=== PATIENT | male | born 1960 | race Caucasian/White ===

== ENCOUNTER 2020-03-04 23:50 | Emergency (ER) | payer SELFPAY ==
[2020-03-04 23:53] VITALS: BP 160/100; PULSE 90; BMI 52.6
--- NOTE | 2020-03-04 23:53 | ED.ALCOHOL ---
HPI - Alcohol General Chief Complaint: ETOH/Substance Use Stated Complaint: ETOH Time Seen by Provider: 03/04/20 23:53 Source: EMS Mode of arrival: EMS Limitations: other (Alcohol intoxication) History of Present Illness HPI narrative: Patient is brought by EMS for alcohol intoxication. Police Department called EMS to bring the patient to the emergency room. Police department was called to a private residence, PD walked the patient out and handed the patient over to EMS. On arrival to the emergency room, patient is intoxicated, uncooperative, belligerent, aggressive. Per EMS, when the ambulance arrived on the ambulance [place], patient on strep himself, opened the back of the ambulance and jumped out. Patient did not fall, no head injury. MD complaint: alcohol intoxication Review of Systems Review of Systems: Yes Other (Unwilling to cooperate) [facility] Past Medical History Medical History (Updated 03/04/20 @ 23:59 by Kanchan Wiley MD) Alcohol intoxication Social History Social History Advance Directives: No Advance Directives Information Provided: No Physical Exam Vital Signs: Appearance: Alert. Oriented X3. Intoxicated, combative, belligerent Eyes: Pupils equal, round and reactive to light. ENT: Pharynx normal. Neck: Normal inspection. CVS: Refused physical exam Respiratory: Refused physical exam Abdomen: Refused physical exam Skin: Skin warm and dry. Extremities: No Rash Neuro: No motor deficit. Intoxicated Course Course Course Narrative: Police department was called, patient was discharged under police custody Discharge Plan Discharge Clinical Impression: Alcoholic intoxication Qualifiers: Complication of substance-induced condition: uncomplicated Qualified Code(s): F10.920 - Alcohol use, unspecified with intoxication, uncomplicated Patient Disposition: Xfer Other Instructions: Alcohol Intoxication (ED) Additional Instructions: Please follow-up with your primary care physician tomorrow. If you have any worsening or new symptoms, please return to the emergency room or call 911
--- NOTE | 2020-03-04 23:56 | PC.NURSE ---
PD ESCORT CALLED. PATIENT IS BELIGERENT AND NOT COOPERATING. DENIES ANY OTHER COMPLAINTS.
--- NOTE | 2020-03-04 23:58 | PC.NURSE ---
ESCORTED OFF PROPERTY BY PD.
== END 2020-03-05 00:04 | disposition other institution (70) ==
PROVIDERS: Emergency Provider Emergency Medicine
DX: F10.920 Alcohol use, unspecified with intoxication, uncomplicated (principal)
CPT/HCPCS: 99283

== ENCOUNTER 2021-08-04 19:53 | Emergency (ER) | payer MEDICARE, MEDICAID, SELFPAY ==
[2021-08-04 19:56] VITALS: BMI 25.0
[2021-08-04 20:03] VITALS: BP 98/52; PULSE 86; RESP 18; TEMP 36.4; O2SAT 98
[2021-08-04] MEDS: Lidocaine HCl 1 % MPF 5 ML VIAL SUBCUT (20:26)
--- NOTE | 2021-08-04 22:09 | ED_ITS ---
HPI - Wound/Laceration General Chief Complaint: Wound/Laceration Stated Complaint: L thumb lac Time Seen by Provider: 08/04/21 20:11 Source: patient Mode of arrival: wheelchair Limitations: no limitations History of Present Illness HPI narrative: 61-year-old male who is lorgb-[id number]-[id number] here with reports of laceration to the left hand. Patient tells me he was cutting a lemon to put in his beer when his hand slipped causing him to cut the left index finger. Patient reports his tetanus is up-to-date. He denies any associated weakness, numbness, tingling, fevers, chills. Related Data Allergies Allergy/AdvReac Type Severity Reaction Status Date / Time NSAIDS (Non-Steroidal AdvReac Gastrointestinal Verified 08/04/21 20:28 Anti-Inflamma Upset Review of Systems Review of Systems: Yes all other systems are reviewed and are negative Constitutional: Constitutional: Reports no additional constitutional comp laints, Denies chills, Denies fever(s) and Denies weakness Eyes: Eyes: Reports no additional eye complaints ENT: Reports system reviewed and no additional complaints, except as documented Cardiovascular: Cardiovascular: Reports no additional cardiovascular compl aints and Denies acrocyanosis Respiratory: Respiratory: Reports no additional respiratory complaints Gastrointestinal: Gastrointestinal: Reports no additional gastrointestinal complaints Musculoskeletal: Musculoskeletal: Reports no additional musculoskeletal complaints, Denies arthralgias, Denies joint swelling, Denies numbness and Live es tingling Integumentary/Breasts: Skin/Breast: Reports system reviewed and no additional complaints, except as docu and Denies rash Neurologic: Denies Abnormal speech present, Denies numbness, Denies tingling and Denies weakness [facility] Past Medical History Attestation statement: The following information was validated with the patient. Source: old records reviewed and nursing notes reviewed Medical History Alcohol intoxication Social History Social History Advance Directives: No Advance Directives Information Provided: No Physical Exam Vital Signs: Vital Signs: Last Vital Signs Temp 97.6 F 08/04/21 20:03 Pulse 86 08/04/21 20:03 Resp 18 08/04/21 20:03 BP 98/52 L 08/04/21 20:03 Pulse Ox 98 08/04/21 20:03 O2 Del Method 08/04/21 20:03 BMI result Body Mass Index 25.0 Const: General: cooperative, healthy appearing, comfortable and no acute distress Orientation/consciousness: patient oriented x3 Limitations: no limitations HEENT: Head: Yes normal to inspection Ears: hearing grossly normal bilaterally Eyes: General: appearance normal, both eyes and all related structures Pu pils: Equal, round and reactive pupils present Neck: Neck: Yes normal visual inspection Chest: Chest palpation & inspection: normal inspection of the chest Resp: Effort & Inspection: normal respiratory effort Cardio: Peripheral pulses: Peripheral pulses 2+ throughout Skin: General skin exam: no rashes or lesions noted Neuro: General: patient oriented x3 and Unable to assess gait Cranial nerves: Yes Equal, round and reactive pupils present Cognition (Neuro): normal cognition Speech: No Abnormal speech present Gait exam (Neuro): Unable to assess gait Extrem: Hand/finger images: 1. 4cm laceration over the dorsal aspect. Full range of motion. neurovascular intact distally Course Course Course Narrative: 61-year-old male qbrir-[id number] here with reports of laceration to left hand from a knife. Tetanus is up-to-date. Patient has full range of motion of the digit and hand. See procedure note for wound repair. MDM - Wound/Laceration Differential Diagnosis Differential diagnosis: Likely laceration Medical Records Attestation: I reviewed the patient's medical records. Lab Data Attestation: I reviewed the patient's lab results. Procedures Laceration Laceration 1: Site: hand Side (If applicable): left Size (cm): 4 Description: linear Depth: simple, single layer Local Anesthetic: lidocaine 1% Amount of anesthesia used (mL): 3 Pre-repair: wound explored, irrigated extensively and deep structures intact Skin layer closed with: vicryl Size (cm): 5-0 Number of sutures: 6 Technique: simple, interrupted Discharge Plan Discharge Clinical Impression: Laceration Patient Disposition: Home, Self-Care Instructions: Finger Laceration (ED) Additional Instructions: Sutures out in 7-10 days Interventions: ED Discharge Assessment Last Done: 08/04/21 21:05 Discharge Date/Time: 08/04/21 21:06
== END 2021-08-04 21:06 | disposition home or self-care (01) ==
PROVIDERS: Emergency Provider Emergency Medicine; PCP Internal Medicine
DX: S61.412A Laceration without foreign body of left hand, initial encounter (principal); W26.0XXA Contact with knife, initial encounter; Y93.G3 Activity, cooking and baking; Y92.9 Unspecified place or not applicable; Y99.9 Unspecified external cause status
CPT/HCPCS: 12002; 99283; 99284

== ENCOUNTER 2022-02-20 12:00 | Outpatient (REF) | payer MEDICARE, MEDICAID, SELFPAY ==
--- NOTE | ~2022-02-20 | XR_ITS ---
EXAMINATION: XR CHEST CLINICAL INFORMATION: Cough COMPARISON: None TECHNIQUE: 2 views of the chest were obtained. FINDINGS: No significant abnormality is noted involving the heart, lungs, mediastinum, bony thorax or soft tissues. There is mild deformity left posterior third rib likely old healed fracture XR/XR chest 2V IMPRESSION: Unremarkable chest examination.
== END 2022-02-20 12:01 | disposition home or self-care (01) ==
LOC: HO.XRAY 12:00
PROVIDERS: PCP Internal Medicine; Visit Provider Internal Medicine
DX: R05.9 Cough, unspecified (principal)
CPT/HCPCS: 71046

== ENCOUNTER 2022-05-19 18:49 | Emergency (ER) | payer OTHER, SELFPAY ==
--- NOTE | 2022-05-19 | ECG_ITS ---
Test Reason : SYNCOPE Blood Pressure : / mmHG Vent. Rate : 086 BPM Atrial Rate : 086 BPM P-R Int : 236 ms QRS Dur : 076 ms QT Int : 328 ms P-R-T Axes : 075 092 058 degrees QTc Int : 392 ms Sinus rhythm with 1st degree A-V block Rightward axis cannot exclude Septal infarct , age undetermined Abnormal ECG No previous ECGs available Referred By: Generic ED Physician Electronically Signed By:HUMA PARKER
[2022-05-19 19:01] VITALS: BP 108/70; BP 109/75; PULSE 88; RESP 16; TEMP 36.6; O2SAT 95; O2SAT 97; BMI 24.3
[2022-05-19 19:37] LABS: MANUAL DIFF FLAG NO
[2022-05-19 19:38] LABS: Basophils Absolute Auto 0.1 X10*3/uL (0.0-0.2); Basophils Percent Auto 0.8 % (0-2); Eosinophils Percent Auto 0.3 % (0-4); Hematocrit 43.3 % (42.0-52.0); Hemoglobin 14.6 g/dl (14.0-18.0); Imm Gran Abs Auto 0.03 X10*3/uL (0.00-0.03); Imm Gran Pct Auto 0.3 % (0.0-0.4); Lymphocytes Absolute Auto 1.3 X10*3/uL (1.2-4.9); Lymphocytes Percent Auto 11.8 % (20-40); Mean Corpuscular HGB Conc 33.7 g/dl (31.0-36.0); Mean Corpuscular Hemoglobin 30.2 pg (27.0-33.0); Mean Corpuscular Volume 89.6 fL (80.0-98.0); Mean Platelet Volume 9.9 fL (9.4-12.4); Monocytes Absolute Auto 0.5 X10*3/uL (0.1-1.2); Monocytes Percent Auto 4.9 % (2-11); Neutrophils Absolute Auto 8.7 x10*3/uL (2.0-8.3); Neutrophils Percent Auto 81.9 % (45-73); Platelet Count 233 X10*3/uL (160-400); Red Blood Count 4.83 X10*6/uL (4.60-5.80); Red Cell Distribution Width 12.9 % (11.0-16.0); White Blood Count 10.6 X10*3/uL (4.8-10.8)
[2022-05-19 20:00] LABS: Alanine Aminotransferase 10 U/L (0-40); Albumin Level 3.8 g/dL (3.5-5.0); Alkaline Phosphatase 102 U/L (39-117); Anion Gap 15 (12-20); Aspartate Amino Transferase 13 U/L (5-37); Bilirubin Total 0.4 mg/dL (0.0-1.0); Blood Urea Nitrogen 11 mg/dL (9-16); Carbon Dioxide 24 mmol/L (22-29); Chloride 103 mmol/L (96-108); Creatinine Clr Calc Pharmacy 77.9; Estimated Glomerular Filt Rate > 60; Glucose Random 153 mg/dL (60-115); Potassium 4.9 mmol/L (3.3-5.1); Sodium 137 mmol/L (135-145); Total Protein 6.2 g/dL (6.5-8.0)
[2022-05-19 20:14] LABS: Troponin-I High Sensitivity < 3.5 ng/L (<3.5-35.0)
--- OUTSIDE RECORDS SUMMARY | 2022-05-19 20:30 | XMS_ITS | Continuity of Care Document ---
Author Name Unknown Organization [facility] [place] Address [address] [place] [address]- Care Team Providers Care Directory Clerk Name Role Phone Nazario Van MD Primary Care Physician Encounter [facility] Date(s): 03/10/19 - 05/09/19 [facility] Adult [address] [place] [address]- [facility] Attending Physician: Nazario Van MD Allergies, Adverse Reactions, Alerts Substance Reaction Severity Status ibuprofen Stomach upset Active NSAIDs 1 Active 1stomach ulcers Immunizations Given and Recorded Vaccine Date Status Refusal Reason influenza virus vaccine, inactivated 04/24/19 Give n tetanus/diphtheria/pertussis, acel(Tdap) 02/19/16 Recorded pneumococcal 23-valent vaccine 02/03/16 Recorded Not Given Vaccine Date Status Refusal Reason Influenza Virus Vaccine (oldterm) 05/16/18 Not Giv en Patient Refuses Medications duloxetine 60 mg oral enteric coated capsule See Instructions, TAKE 1 CAPSULE BY MOUTH DAILY, # 30 capsule, 5 Refills, Soft Stop, 02/09/19 9:21:00 EST, [facility] #[id number], 184.5, cm, 08/07/18 11:41:00 EDT, Height Start Date: 02/09/19 Status: Ordered gabapentin 400 mg oral capsule 1, capsule, By Mouth, 3 times a day, # 90 capsule, Refills 2, Tot. Refills 2, Maintenance, 03/25/2011:24:00 EST, Route to Pharmacy Electronically, [facility] #[id number], 184.5, cm, 08/07/18 11:41:00 EDT, Height, Dry Weight Start Date: 03/25/19 Status: Ordered tamsulosin 0.4 mg oral capsule 0.4 mg, 1, capsule, By Mouth, Daily, # 30 capsule, Refills 5, Tot. Refills 5, Maintenance, 04/23/2014:18:00 EST, Route to Pharmacy Electronically, [facility] #[id number], 184.5, cm, 04/24/19 14:57:00 EST, Height Start Date: 04/24/19 Status: Ordered venlafaxine 75 mg oral capsule, extended release 75 mg, 1, capsule, By Mouth, Daily, # 30 capsule, Refills 2, Tot. 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
--- OUTSIDE RECORDS SUMMARY | 2022-05-19 20:30 | XMS_ITS | Continuity of Care Document ---
Author Name Unknown Organization [facility] Address [address] [place] [address]- Care Team Providers Care Electrical/Instrument Technician Name Role Phone Nazario Mayer MD Primary Care Physician Encounter [facility] Date(s): 03/21/21 - 03/28/21 [facility] Adult [address] [place] [address]- Attending Physician: Nazario Mayer MD Allergies, Adverse Reactions, Alerts Substance Reaction Severity Status ibuprofen Stomach upset Active NSAIDs 1 Active 1stomach ulcers Immunizations Given and Recorded Vaccine Date Status Refusal Reason SARS-CoV-2 (COVID-19) Ad26 vaccine 1 08/15/20 Give n Influenza Virus Vaccine (oldterm) 02/19/20 Recorde d influenza virus vaccine, inactivated 04/24/19 Give n tetanus/diphtheria/pertussis, acel(Tdap) 02/19/16 Recorded pneumococcal 23-valent vaccine 02/03/16 Recorded Not Given Vaccine Date Status Refusal Reason Influenza Virus Vaccine (oldterm) 05/16/18 Not Giv en Patient Refuses 1Result Comment: ADMINISTERED TO PT PER DR MAYER Medications cyclobenzaprine 10 mg oral tablet 10 mg, 1, tablet, By Mouth, Daily, prn back pain, # 30 tablet, Refills 0, Tot. Refills 0, Maintenance, 03/21/21 10:18:00 EST, Route to Pharmacy Electronically, [facility] #[id number], Partial fill upon patient request if the prescription is for a... Start Date: 03/21/21 Status: Ordered duloxetine 60 mg oral enteric coated capsule 1 capsule, By Mouth, Daily, # 30 capsule, 5 Refills, 02/22/21 11:47:00 EST, [facility] #[id number], 184.5, cm, 12/15/20 12:14:00 EDT, Height Start Date: 02/22/21 Status: Ordered gabapentin 400 mg oral capsule See Instructions, TAKE 1 CAPSULE BY MOUTH THREE TIMES DAILY, # 270 capsule, Refills 0, InstructionsReplace Required Details, Route to Pharmacy Electronically, [facility] #[id number], 184.5, cm,12/15/20 12:14:00 EDT, Height Start Date: 12/15/20 Status: Ordered gabapentin 400 mg oral capsule 1, capsule, By Mouth, 3 times a day, # 270 capsule, Refills 0, Tot. Refills 0, Maintenance, 09/05/20 9:01:00 EDT, Route to Pharmacy Electronically, [facility] #[id number], 184.5, cm, 08/15/20 13:20:00 EDT, Height Start Date: 09/05/20 Status: Ordered tamsulosin 0.4 mg oral capsule 1, capsule, By Mouth, Daily, # 90 capsule, Refills 0, Route to Pharmacy Electronically, [facility] #[id number], 184.5, cm, 12/15/20 12:14:00 EDT, Height Start Date: 12/15/20 Status: Ordered venlafaxine 37.5 mg oral capsule, extended release See Instructions, Take 2 capsules by mouth daily for one week, then reduce to 1 capsule by mouth daily for one week, then stop., # 21 capsule, Refills 0, Tot. Refills 0, Maintenance, 03/21/21 16:03:00 EST, Instructions Replace Required Details, Route... 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
--- OUTSIDE RECORDS SUMMARY | 2022-05-19 20:30 | XMS_ITS | Continuity of Care Document ---
Author Name Unknown Organization [facility] Address [address] [place] [address]- Care Team Providers Care Retirement Actuary Name Role Phone Rehan FLOREZ, Nazario Jensen Primary Care Physician Encounter [facility] Date(s): 06/29/19 - 07/29/19 [facility] Adult [address] [place] [address]- [facility] Attending Physician: Scott Hercules Admitting Physician: AdmScott ogden Referring Physician: AdmtrScott Allergies, Adverse Reactions, Alerts Substance Reaction Severity [...] 5 Refills, Soft Stop, 02/09/19 9:21:00 EST, [facility] #[id number], 184.5, cm, 08/07/18 11:41:00 EDT, Height Start Date: 02/09/19 Status: Ordered gabapentin 400 mg oral capsule 1, capsule, By Mouth, 3 times a day, # 90 capsule, Refills 0, Tot. Refills 0, Maintenance, :16:00 EDT, Route to Pharmacy Electronically, [facility] #[id number], 184.5, cm, 06/29/19 12:56:00 EDT, Height Start Date: 07/23/19 Status: Ordered tamsulosin 0.4 mg oral capsule 0.4 mg, 1, capsule, By Mouth, Daily, # 30 capsule, Refills 5, Tot. Refills 5, Maintenance, 04/23/2014:18:00 EST, Route to Pharmacy Electronically, [facility] #[id number], 184.5, cm, 04/24/19 14:57:00 EST, Height Start Date: 04/24/19 Status: Ordered venlafaxine 150 mg oral capsule, extended release 150 mg, 1, capsule, By Mouth, Daily, # 90 capsule, Refills 1, Tot. Refills 1, Maintenance, 06/28/2012:34:00 EDT, Route to Pharmacy Electronically, [facility] #[id number], 184.5, cm, 06/29/19 12:56:00 EDT, Height Start Date: 06/29/19 Status: Ordered Problem List Condition Effective Dates Status Health Status Inform ant Anxiety(Confirmed) Active BPH (benign prostatic hyperplasia)(Confirmed) Active Cervical disc disease(Confirmed) Active Depressed(Confirmed) Active [...]
--- OUTSIDE RECORDS SUMMARY | 2022-05-19 20:30 | XMS_ITS | Continuity of Care Document ---
Author Name Unknown Organization [facility] Address [address] [place] [address]- Care Team Providers Care Instructional Support Services Director Name Role Phone Nazario Mayer MD Primary Care Physician [phone] Encounter [facility] Date(s): 08/15/20 - 08/22/20 [facility] Adult [address] [place] [address]- Attending Physician: Nazario Mayer MD Allergies, Adverse [...] ADMINISTERED TO PT PER DR MAYER Medications duloxetine 60 mg oral enteric coated capsule 1 capsule, By Mouth, Daily, # 30 capsule, 5 Refills, Maintenance, 05/30/20 12:58:00 EDT, [facility] #[id number], 184.5, cm, 05/09/20 9:04:00 EDT, Height Start Date: 05/30/20 Status: Ordered gabapentin 400 mg oral capsule See Instructions, TAKE 1 CAPSULE BY MOUTH THREE TIMES DAILY, # 270 capsule, Refills 1, Tot. Refills1, 03/04/20 16:23:00 EST, Instructions Replace Required Details, Route to Pharmacy Electronically, [facility] #[id number], 184.5, cm, 12/30/19 13:... Start Date: 03/04/20 Status: Ordered tamsulosin 0.4 mg oral capsule 1, capsule, By Mouth, Daily, # 30 capsule, Refills 5, Tot. Refills 5, Maintenance, 05/29/20 21:04:00 EDT, Route to Pharmacy Electronically, [facility] #[id number], 184.5, cm, 05/09/20 9:04:00 EDT, Height Start Date: 05/29/20 Status: Ordered tiZANidine 2 mg oral tablet 2 mg, 1, tablet, By Mouth, Every 8 hours, # 42 tablet, Refills 0, Tot. Refills 0, Maintenance, 07/14/20 21:10:00 EDT, Route to Pharmacy Electronically, [facility] #[id number], Partial fill upon patient request if the prescription is for a schedul... Start Date: 07/14/20 Status: Ordered venlafaxine 150 mg oral capsule, extended release 150 mg, 1, capsule, By Mouth, Daily, # 90 capsule, Refills 1, Tot. Refills 1, Maintenance, 05/31/2111:59:00 EDT, Route to Pharmacy Electronically, [facility] #[id number], 184.5, cm, 05/09/20 9:04:00 EDT, Height Start Date: 05/30/20 Status: Ordered Problem List Condition Effective Dates [...] oldest [Reference Range]: 1 Height 184.5 cm (08/15/20 1:20 PM) Weight 86.6 kg (08/15/20 1:20 PM) Oxygen Saturation [94-100 %] 98 % (08/15/20 1:20 PM) Pulse Rate [55-90 bpm] 120 bpm *H* (08/15/20 1:20 PM) Body Mass Index [18.5-24.99] 25.44 *H* (08/15/20 1:20 PM) Blood Pressure [90-138/55-84 mm Hg] 122/ 82mm Hg (08/15/20 1:20 PM) Respiratory Rate [16-30 br/min] 16 br/mi n (08/15/20 1:20 PM) Temperature [96.8-100.4 DegF] 99.0 DegF (08/15/20 1:20 PM) Mode of Delivery (Oxygen) Room air (08/15/20 1:20 PM) Blood pressure sites Arm, left (08/15/20 1:20 PM) Temperature Route Oral (08/15/20 1:20 PM) Weight Obtained Via Standing scale (08/15/20 1:20 PM) Social History Social History Type Response Smoking Status Current every day gaye ofx entered on: 05/06/15 Sex Male
--- OUTSIDE RECORDS SUMMARY | 2022-05-19 20:30 | XMS_ITS | Continuity of Care Document ---
Author Name Unknown Organization [facility] Address [address] [place] [address]- Care Team Providers Care Oyster Floater Name Role Phone Nazario Van MD Primary Care Physician [place] [facility] [place] 05/09/20 - 05/16/20 [facility] Adult [address] [place] [address]- Attending Physician: Nazario Van MD Allergies, Adverse Reactions, Alerts Substance Reaction Severity Status ibuprofen Stomach upset Active NSAIDs 1 Active 1stomach ulcers Immunizations Given and Recorded Vaccine Date Status Refusal Reason Influenza Virus Vaccine (oldterm) 02/19/20 Recorde d influenza virus vaccine, inactivated 04/24/19 Give n tetanus/diphtheria/pertussis, acel(Tdap) 02/19/16 Recorded pneumococcal 23-valent vaccine 02/03/16 Recorded Not Given Vaccine Date Status Refusal Reason Influenza Virus Vaccine (oldterm) 05/16/18 Not Giv en Patient Refuses Medications duloxetine 60 mg oral enteric coated capsule 1 capsule, By Mouth, Daily, # 30 capsule, 0 Refills, Maintenance, 04/27/20 16:45:00 EST, [facility] #[id number], 184.5, cm, 04/15/20 9:27:00 EST, Height Start Date: 04/27/20 Status: Ordered gabapentin 400 mg oral capsule See Instructions, TAKE 1 CAPSULE BY MOUTH THREE TIMES DAILY, # 270 capsule, Refills 1, Tot. Refills1, 03/04/20 16:23:00 EST, Instructions Replace Required Details, Route to Pharmacy Electronically, [facility] #[id number], 184.5, cm, 12/30/19 13:... Start Date: 03/04/20 Status: Ordered hydrOXYzine hydrochloride 50 mg oral tablet 1 tablet = 50 mg, By Mouth, 3 times a day, # 90 tablet, 2 Refills, Maintenance, 04/15/20 10:18:00 EST, [facility] #[id number], Partial fill upon patient request if the prescription is for a schedule II opioid drug., 184.5, cm, 04/15/20 9:27:00 ES... Start Date: 04/15/20 Status: Ordered tamsulosin 0.4 mg oral capsule 1, capsule, By Mouth, Daily, # 30 capsule, Refills 0, Tot. Refills 0, Maintenance, 04/27/20 16:45:00 EST, Route to Pharmacy Electronically, [facility] #[id number], 184.5, cm, 04/15/20 9:27:00 EST, Height Start Date: 04/27/20 Status: Ordered venlafaxine 150 mg oral capsule, extended release 150 mg, 1, capsule, By Mouth, Daily, # 90 capsule, Refills 1, Tot. Refills 1, Maintenance, 209:07:00 EST, Route to Pharmacy Electronically, [facility] #[id number], 184.5, cm, 10/15/19 8:16:00 EDT, Height Start Date: 12/23/19 Status: Ordered Problem List Condition Effective Dates [...] oldest [Reference Range]: 1 Height 184.5 cm (05/09/20 9:04 AM) Weight 87.0 kg (05/09/20 9:04 AM) Body Mass Index [18.5-24.99] 25.56 *H* (05/09/20 9:04 AM) Weight Obtained Via Standing scale (05/09/20 9:04 AM) Social History Social History Type Response Smoking Status Current every day gaye fox entered on: 05/06/15 Sex Male
--- OUTSIDE RECORDS SUMMARY | 2022-05-19 20:30 | XMS_ITS | Continuity of Care Document ---
Author Name Unknown Organization [facility] [place] lt Address [address] [place] [address]- Care Team Providers Care Scout Leaser Name Role Phone Rehan FLOREZ, Nazario Jensen Primary Care Physician Encounter [facility] [place] Date(s): 12/01/21 - 12/31/21 [facility] [place] Adult [address] [place] [address]- Allergies, Adverse Reactions, Alerts Substance Reaction Severity Status ibuprofen Stomach upset Active NSAIDs 1 Active 1stomach ulcers Immunizations Given and Recorded Vaccine Date Status Refusal Reason SARS-CoV-2 (COVID-19) Ad26 vaccine 1 08/15/20 Give n Influenza Virus Vaccine (oldterm) 02/19/20 Recorde d influenza virus vaccine, inactivated 04/24/19 Give n tetanus/diphtheria/pertussis, acel(Tdap) 10/19/16 Recorded tetanus/diphtheria/pertussis, acel(Tdap) 02/19/16 Recorded pneumococcal 23-valent vaccine 02/03/16 Recorded Not Given Vaccine Date Status Refusal Reason Influenza Virus Vaccine (oldterm) 05/16/18 Not Giv en Patient Refuses 1Result Comment: ADMINISTERED TO PT PER DR MAYER Medications cyclobenzaprine 10 mg oral tablet 10 mg, 1, tablet, By Mouth, Daily, prn back pain, # 30 tablet, Refills 1, Tot. Refills 1, Maintenance, 07/24/21 11:11:00 EDT, Route to Pharmacy Electronically, [facility] #[id number], Partial fill upon patient request if the prescription is for a... Start Date: 07/24/21 Status: Ordered duloxetine 60 mg oral enteric coated capsule 1 capsule, By Mouth, Daily, # 30 capsule, 5 Refills, 07/27/21 16:26:00 EDT, [facility] #[id number], 184.5, cm, 03/21/21 8:31:00 EST, Height Start Date: 07/27/21 Status: Ordered gabapentin 400 mg oral capsule 1, capsule, By Mouth, 3 times a day, # 270 capsule, Refills 0, Tot. Refills 0, Maintenance, 09/05/20 9:01:00 EDT, [facility][id number], 184.5, cm, 08/15/20 13:20:00 EDT, Height Start Date: 09/05/20 Status: Ordered gabapentin 400 mg oral capsule See Instructions, TAKE 1 CAPSULE BY MOUTH THREE TIMES DAILY, # 270 capsule, Refills 1, Tot. Refills1, 07/27/21 17:31:00 EDT, Instructions Replace Required Details, Route to Pharmacy Electronically, [facility] #[id number], 184.5, cm, 03/21/21 8:3... Start Date: 07/27/21 Status: Ordered tamsulosin 0.4 mg oral capsule 1, capsule, By Mouth, Daily, # 90 capsule, Refills 0, Tot. Refills 0, Maintenance, 08/15/21 13:42:00 EDT, Route to Pharmacy Electronically, [facility] #[id number], 184.5, cm, 03/21/21 8:31:00 EST, Height Start Date: 08/15/21 Status: Ordered venlafaxine 37.5 mg oral capsule, extended release See Instructions, Take 2 capsules by mouth daily for one week, then reduce to 1 capsule by mouth daily for one week, then stop., # 21 capsule, Refills 0, Tot. Refills 0, Maintenance, 03/21/21 16:03:00 EST, Instructions Replace Required Details, Route... 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 RN Member Role: Primary Care Nurse Name: Gabrielle Giles Position: [facility] RN Member Role: Primary Care Nurse Name: Nazario Mayer MD Position: [facility] Primary Care Physician Member Role: PCP Address: Address: [address] [place] [address]- Care Team Related Persons Name: SHALOM DOLAN Address: home [address] [address] Name: WILLOW JOVEL Address: home [address] [place] [address] Name: RODNEY JAMES Address: home [address] [place] [address]
--- OUTSIDE RECORDS SUMMARY | 2022-05-19 20:30 | XMS_ITS | Continuity of Care Document ---
Author Name Unknown Organization [facility] Address [address] [place] [address]- Care Team Providers Care Ordnance Artificer Name Role Phone Nazario Van MD Primary Care Physician [phone] [facility] [place] Date(s): 03/17/20 - 03/24/20 [facility] Adult [address] [place] [address]- Attending Physician: Nazario Van MD Allergies, Adverse [...] Daily, # 30 capsule, 0 Refills, Maintenance, 02/24/20 11:50:00 EST, [facility] #[id number], 184.5, cm, 12/30/19 13:17:00 EST, Height Start Date: 02/24/20 Status: Ordered gabapentin 400 mg oral capsule 1, capsule, By Mouth, 3 times a day, # 90 capsule, Refills 0, Tot. Refills 0, Maintenance, 10/20/2011:40:00 EDT, Route to Pharmacy Electronically, [facility] #[id number], 184.5, cm, 10/15/19 8:16:00 EDT, Height Start Date: 10/20/19 Status: Ordered gabapentin 400 mg oral capsule See Instructions, TAKE 1 CAPSULE BY MOUTH THREE TIMES DAILY, # 270 capsule, Refills 1, Tot. Refills1, 03/04/20 16:23:00 EST, Instructions Replace Required Details, Route to Pharmacy Electronically, [facility] #[id number], 184.5, cm, 12/30/19 13:... Start Date: 03/04/20 Status: Ordered hydrOXYzine hydrochloride 25 mg oral tablet 1 capsule, By Mouth, 3 times a day, PRN anxiety, for 10 days, # 30 capsule, 0 Refills, Acute 03/27/20 8:32:00 EST, 03/17/20 8:32:00 EST, Capsule, [facility] #[id number], Partial fill upon patient request if the prescription is for a schedule II o... Start Date: 03/17/20 Stop Date: 03/27/20 Status: Ordered tamsulosin 0.4 mg oral capsule 0.4 mg, 1, capsule, By Mouth, Daily, # 30 capsule, Refills 5, Tot. Refills 5, Maintenance, 10/19/2011:42:00 EDT, Route to Pharmacy Electronically, [facility] #[id number], 184.5, cm, 10/15/19 8:16:00 EDT, Height Start Date: 10/19/19 Status: Ordered venlafaxine 150 mg oral capsule, extended release 150 mg, 1, capsule, By Mouth, Daily, # 90 capsule, Refills 1, Tot. Refills 1, Maintenance, :07:00 EST, Route to Pharmacy Electronically, [facility] #[id number], 184.5, cm, 10/15/19 8:16:00 EDT, Height Start [...] oldest [Reference Range]: 1 Height 184.5 cm (03/17/20 7:53 AM) Social History Social History Type Response Smoking Status Current every day gaye fox entered on: 05/06/15 Sex Male
--- OUTSIDE RECORDS SUMMARY | 2022-05-19 20:30 | XMS_ITS | Continuity of Care Document ---
Author Name Unknown Organization [facility] Address [address] [place] [address]- Care Team Providers Care Hand Slitter Name Role Phone Rehan FLOREZ, Nazario Jensen Primary Care Physician Encounter [facility] [place] Date(s): 11/07/21 - 12/07/21 [facility] Adult [address] [place] [address]- Allergies, Adverse Reactions, Alerts Substance Reaction Severity [...] 07/24/21 11:11:00 EDT, Route to Pharmacy Electronically, [facility] #[id number], Partial fill upon patient request if the prescription is for a... Start Date: 07/24/21 Status: Ordered duloxetine 60 mg oral enteric coated capsule 1 capsule, By Mouth, Daily, # 30 capsule, 5 Refills, 07/27/21 16:26:00 EDT, [facility] #[id number], 184.5, cm, 03/21/21 8:31:00 EST, Height Start Date: 07/27/21 Status: Ordered gabapentin 400 mg oral capsule 1, capsule, By Mouth, 3 times a day, # 270 capsule, Refills 0, Tot. Refills 0, Maintenance, 09/05/20 9:01:00 EDT, Route to Pharmacy Electronically, [facility][id number], 184.5, cm, 08/15/20 13:20:00 EDT, Height Start Date: 09/05/20 Status: Ordered gabapentin 400 mg oral capsule See Instructions, TAKE 1 CAPSULE BY MOUTH THREE TIMES DAILY, # 270 capsule, Refills 1, Tot. Refills1, 07/27/21 17:31:00 EDT, Instructions Replace Required Details, Route to Pharmacy Electronically, [facility] #02465, 184.5, cm, 03/21/21 8:3... Start Date: 07/27/21 Status: Ordered tamsulosin 0.4 mg oral capsule 1, capsule, By Mouth, Daily, # 90 capsule, Refills 0, Tot. Refills 0, Maintenance, 08/15/21 13:42:00 EDT, Route to Pharmacy Electronically, [facility] #05133, 184.5, cm, 03/21/21 8:31:00 EST, Height Start [...] gaye fox entered on: 05/06/15 Sex Male Patient Care team information Personnel Name: Rehan FLOREZ, Nazario Jensen Address: Address: [address] [place] [address]
--- OUTSIDE RECORDS SUMMARY | 2022-05-19 20:30 | XMS_ITS | Continuity of Care Document ---
Author Name Unknown Organization [facility] Address [address] [place] [address]- Care Team Providers Care Systems Eng Name Role Phone Rehan FLOREZ, Nazario Jensen Primary Care Physician Encounter [facility] [place] Date(s): 11/28/21 - 12/28/21 [facility] Adult [address] [place] [address]- Allergies, Adverse Reactions, Alerts Substance Reaction Severity [...] 07/24/21 11:11:00 EDT, Route to Pharmacy Electronically, [facility] #[id number], Partial fill upon patient request if the prescription is for a... Start Date: 07/24/21 Status: Ordered duloxetine 60 mg oral enteric coated capsule 1 capsule, By Mouth, Daily, # 30 capsule, 5 Refills, 07/27/21 16:26:00 EDT, [facility][id number], 184.5, cm, 03/21/21 8:31:00 EST, Height Start Date: 07/27/21 Status: Ordered gabapentin 400 mg oral capsule 1, capsule, By Mouth, 3 times a day, # 270 capsule, Refills 0, Tot. Refills 0, Maintenance, 09/05/20 9:01:00 EDT, [facility] to Pharm[facility] Electronically, [facility][id number], 184.5, cm, 08/15/20 13:20:00 EDT, Height Start Date: 09/05/20 Status: Ordered gabapentin 400 mg oral capsule See Instructions, TAKE 1 CAPSULE BY MOUTH THREE TIMES DAILY, # 270 capsule, Refills 1, Tot. Refills1, 07/27/21 17:31:00 EDT, Instructions Replace Required Details, Route to Pharmacy Electronically, [facility] #[id number], 184.5, cm, 03/21/21 8:3... Start Date: 07/27/21 Status: Ordered tamsulosin 0.4 mg oral capsule 1, capsule, By Mouth, Daily, # 90 capsule, Refills 0, Tot. Refills 0, Maintenance, 08/15/21 13:42:00 EDT, Route to Pharmacy Electronically, [facility] #[id number], 184.5, cm, 03/21/21 8:31:00 EST, Height Start [...] Care Team Personnel Name: Miranda Cuevas Position: [facility] RN Member Role: Primary Care Nurse Name: Gabrielle Giles Position: [facility] RN Member Role: Primary Care Nurse Name: Nazario Mayer MD Position: [facility] Primary Care Physician Member Role: PCP Address: Address: [address] [place] [address]- Care Team Related Persons Name: SHALOM DOLAN Address: [address] [address] Name: WILLOW JOVEL Address: home [address] [place] [address] Name: RODNEY JAMES Address: home [address] [place] [address]
--- OUTSIDE RECORDS SUMMARY | 2022-05-19 20:30 | XMS_ITS | Continuity of Care Document ---
Author Name Unknown Organization [facility] Address [address] [place] [address]- Care Team Providers Care Medical Data Entry Clerk Name Role Phone Nazario Van MD Primary Care Physician Encounter [facility] [place] Date(s): 04/26/20 - 05/27/20 [facility] Adult [address] [place] [address]- Attending Physician: Nazario Van MD Allergies, Adverse [...] capsule, 0 Refills, Maintenance, 04/27/20 16:45:00 EST, [facility] #[id number], 184.5, cm, 04/15/20 9:27:00 EST, Height Start Date: 04/27/20 Status: Ordered gabapentin 400 mg oral capsule See Instructions, TAKE 1 CAPSULE BY MOUTH THREE TIMES DAILY, # 270 capsule, Refills 1, Tot. Refills1, 03/04/20 16:23:00 EST, Instructions Replace Required Details, Route to Pharmacy Electronically, [facility] #[id number], 184.5, cm, 12/30/19 13:... Start Date: 03/04/20 Status: Ordered hydrOXYzine hydrochloride 50 mg oral tablet 1 tablet = 50 mg, By Mouth, 3 times a day, # 90 tablet, 2 Refills, Maintenance, 04/15/20 10:18:00 EST, [facility] #[id number], Partial fill upon patient request if the prescription is for a schedule II opioid drug., 184.5, cm, 04/15/20 9:27:00 ES... Start Date: 04/15/20 Status: Ordered tamsulosin 0.4 mg oral capsule 1, capsule, By Mouth, Daily, # 30 capsule, Refills 0, Tot. Refills 0, Maintenance, 04/27/20 16:45:00 EST, Route to Pharmacy Electronically, [facility] #[id number], 184.5, cm, 04/15/20 9:27:00 EST, Height Start Date: 04/27/20 Status: Ordered venlafaxine 150 mg oral capsule, extended release 150 mg, 1, capsule, By Mouth, Daily, # 90 capsule, Refills 1, Tot. Refills 1, Maintenance, 209:07:00 EST, Route to Pharmacy Electronically, [facility] #[id number], 184.5, cm, 10/15/19 8:16:00 EDT, Height Start [...]
--- OUTSIDE RECORDS SUMMARY | 2022-05-19 20:30 | XMS_ITS | Continuity of Care Document ---
Author Name Unknown Organization [facility] Address [address] [place] [address]- Care Team Providers Care Resource Engineer Name Role Phone Rehan FLOREZ, Nazario Jensen Primary Care Physician En[facility] Date(s): 05/04/19 - 05/14/[address] [facility] [address] [address]- [facility] Attending Physician: Scott Hercules Admitting Physician: Scott Hercules Referring Physician: Scott Herculse Allergies, Adverse Reactions, Alerts Substance Reaction Severity [...] 5 Refills, Soft Stop, 02/09/19 9:21:00 EST, [facility] #[id number], 184.5, cm, 08/07/18 11:41:00 EDT, Height Start Date: 02/09/19 Status: Ordered gabapentin 400 mg oral capsule 1, capsule, By Mouth, 3 times a day, # 90 capsule, Refills 2, Tot. Refills 2, Maintenance, 03/25/2011:24:00 EST, Route to Pharmacy Electronically, [facility] #[id number], 184.5, cm, 08/07/18 11:41:00 EDT, Height, Dry Weight Start Date: 03/25/19 Status: Ordered tamsulosin 0.4 mg oral capsule 0.4 mg, 1, capsule, By Mouth, Daily, # 30 capsule, Refills 5, Tot. Refills 5, Maintenance, 04/23/2014:18:00 EST, Route to Pharmacy Electronically, [facility] #[id number], 184.5, cm, 04/24/19 14:57:00 EST, Height Start Date: 04/24/19 Status: Ordered venlafaxine 75 mg oral capsule, extended release 75 mg, 1, capsule, By Mouth, Daily, # 30 capsule, Refills 2, Tot. Refills 2, Maintenance, 03/25/19 12:07:00 EST, Route to Pharmacy Electronically, [facility] #[id number], 184.5, cm, 08/07/18 11:41:00 EDT, Height Start [...]
--- OUTSIDE RECORDS SUMMARY | 2022-05-19 20:30 | XMS_ITS | Continuity of Care Document ---
Author Name Unknown Organization [facility] Address [address] [place] [address]- Care Team Providers Care Warehouse Driver Name Role Phone Rehan FLOREZ, Nazario Jensen Primary Care Physician Encounter [facility] [place] Date(s): 04/12/22 - 05/12/22 [facility] Adult [address] [place] [address]- Attending Physician: Admalin, Bobby8 Admitting Physician: AdmtrScott Referring Physician: Admtr, Ar8 Allergies, Adverse Reactions, Alerts Substance Reaction Severity [...] coated capsule 1 capsule, By Mouth, Daily, for 30 days, # 30 capsule, 5 Refills, Physician Stop 09/22/22 17:51:00 EDT, 03/26/22 17:51:00 EST, [facility] #[id number], 184.5, cm, 02/20/22 9:16:00 EST, Height Start Date: 03/26/22 Stop Date: 09/22/22 Status: Ordered gabapentin 400 mg oral capsule See Instructions, TAKE 1 CAPSULE BY MOUTH THREE TIMES DAILY, # 270 capsule, Refills 1, Tot. Refills1, 07/27/21 17:31:00 EDT, Instructions Replace Required Details, Route to Pharmacy Electronically, [facility] #[id number], 184.5, cm, 03/21/21 8:3... Start Date: 07/27/21 Status: Ordered tamsulosin 0.4 mg oral capsule 0.4 mg, 1, capsule, By Mouth, Daily at bedtime, # 30 capsule, Refills 5, Tot. Refills 5, Maintenance, 04/16/22 15:56:00 EST, Route to Pharmacy Electronically, [facility] #[id number], Partial fill upon patient request if the prescription is for a... Start Date: 04/16/22 Status: Ordered Problem List Condition Confirmation Course [...] Type Response Smoking Status Current every day dominique entered on: 05/06/15 Sex Male EKG study * Event Display: EKG Authored Date: Note * Event Display: X-Ray Chest, Non- BH Authored Date: Patient Care team information Care Team Personnel Name: Miranda Cuevas Position: [facility] RN Member Role: Primary Care Nurse Name: Gabrielle Giles Position: [facility] RN Member Role: Primary Care Nurse Name: Nazario Mayer MD Position: [facility] Primary Care Physician Member Role: PCP Address: Address: [address] [place] [id number] Care Team Related Persons Name: CHASE DOLANDY Address: [address] [address] Name: WILLOW JOVEL Address: home [address] [place] [address] Name: RODNEY JAMES Address: home [address] [place] [address]
--- OUTSIDE RECORDS SUMMARY | 2022-05-19 20:30 | XMS_ITS | Continuity of Care Document ---
Author Name Unknown Organization [facility] Address [address] [place] [address]- Care Team Providers Care Cadmium Plater Name Role Phone Rehan FLOREZ, Nazario Jensen Primary Care Physician [phone] Encounter [facility] [place] Date(s): 03/02/22 - 04/01/22 [facility] Adult [address] [place] [address]- Allergies, Adverse Reactions, Alerts Substance Reaction Severity [...] 07/24/21 11:11:00 EDT, Route to Pharmacy Electronically, [facility] #[id number], Partial fill upon patient request if the prescription is for a... Start Date: 07/24/21 Status: Ordered duloxetine 60 mg oral enteric coated capsule 1 capsule, By Mouth, Daily, for 30 days, # 30 capsule, 5 Refills, Physician Stop 09/22/22 17:51:00 EDT, 03/26/22 17:51:00 EST, [facility] #[id number], 184.5, cm, 02/20/22 9:16:00 EST, Height Start Date: 03/26/22 Stop Date: 09/22/22 Status: Ordered gabapentin 400 mg oral capsule 1, capsule, By Mouth, 3 times a day, # 270 capsule, Refills 0, Tot. Refills 0, Maintenance, 09/05/20 9:01:00 EDT, [facility][id number], 184.5, cm, 08/15/20 13:20:00 EDT, Height Start Date: 09/05/20 Status: Ordered gabapentin 400 mg oral capsule See Instructions, TAKE 1 CAPSULE BY MOUTH THREE TIMES DAILY, # 270 capsule, Refills 1, Tot. Refills1, 07/27/21 17:31:00 EDT, Instructions Replace Required Details, Route to Pharmacy Electronically, [facility] #[id number], 184.5, cm, 03/21/21 8:3... Start Date: 07/27/21 Status: Ordered tamsulosin 0.4 mg oral capsule 1, capsule, By Mouth, Daily, # 90 capsule, Refills 0, Tot. Refills 0, Maintenance, 08/15/21 13:42:00 EDT, Route to Pharmacy Electronically, [facility] #[id number], 184.5, cm, 03/21/21 8:31:00 EST, Height Start [...] Care Team Personnel Name: Miranda Cuevas Position: [facility] RN Member Role: Primary Care Nurse Name: Gabrielle Giles Position: [facility] RN Member Role: Primary Care Nurse Name: Nazario Mayer MD Position: [facility] Primary Care Physician Member Role: PCP Address: Address: [address] [place] [address] [place] Care Team Related Persons Name: SHALOM DOLAN Address: [address] [address] Name: WILLOW JOVEL Address: home [address] [place] [address] Name: RODNEY JAMES Address: home [address] [place] [address]
--- OUTSIDE RECORDS SUMMARY | 2022-05-19 20:30 | XMS_ITS | Continuity of Care Document ---
Author Name Unknown Organization [facility] Address [address] [place] [address]- Care Team Providers Care Head Of Business Development Name Role Phone Rehan FLOREZ, Nazario Jensen Primary Care Physician [phone] Encounter [facility] [place] Date(s): 05/06/20 - 06/05/20 [facility] Adult [address] [place] [address]- Allergies, Adverse Reactions, Alerts Substance Reaction Severity [...] capsule, 5 Refills, Maintenance, 05/30/20 12:58:00 EDT, [facility] #[id number], 184.5, cm, 05/09/20 9:04:00 EDT, Height Start Date: 05/30/20 Status: Ordered gabapentin 400 mg oral capsule See Instructions, TAKE 1 CAPSULE BY MOUTH THREE TIMES DAILY, # 270 capsule, Refills 1, Tot. Refills1, 03/04/20 16:23:00 EST, Instructions Replace Required Details, Route to Pharmacy Electronically, [facility] #[id number], 184.5, cm, 12/30/19 13:... Start Date: 03/04/20 Status: Ordered hydrOXYzine hydrochloride 50 mg oral tablet 1 tablet = 50 mg, By Mouth, 3 times a day, # 90 tablet, 2 Refills, Maintenance, 04/15/20 10:18:00 EST, [facility] #[id number], Partial fill upon patient request if the prescription is for a schedule II opioid drug., 184.5, cm, 04/15/20 9:27:00 ES... Start Date: 04/15/20 Status: Ordered tamsulosin 0.4 mg oral capsule 1, capsule, By Mouth, Daily, # 30 capsule, Refills 5, Tot. Refills 5, Maintenance, 05/29/20 21:04:00 EDT, Route to Pharmacy Electronically, [facility] #[id number], 184.5, cm, 05/09/20 9:04:00 EDT, Height Start Date: 05/29/20 Status: Ordered venlafaxine 150 mg oral capsule, extended release 150 mg, 1, capsule, By Mouth, Daily, # 90 capsule, Refills 1, Tot. Refills 1, Maintenance, 05/31/2111:59:00 EDT, Route to Pharmacy Electronically, [facility] #[id number], 184.5, cm, 05/09/20 9:04:00 EDT, Height Start [...]
--- OUTSIDE RECORDS SUMMARY | 2022-05-19 20:30 | XMS_ITS | Continuity of Care Document ---
Author Name Unknown Organization [facility] Address [address] [place] [address]- Care Team Providers Care Ice Grinder Name Role Phone Rehan FLOREZ, Nazario Jensen Primary Care Physician [phone] [place] [facility] [place]16[place]22 - 05/16/22 [facility] Adult [address] [place] [address]- Allergies, Adverse Reactions, Alerts Substance Reaction Severity [...] Stop 09/22/22 17:51:00 EDT, 03/26/22 17:51:00 EST, [facility] #[id number], 184.5, cm, 02/20/22 9:16:00 EST, Height Start Date: 03/26/22 Stop Date: 09/22/22 Status: Ordered gabapentin 400 mg oral capsule See Instructions, TAKE 1 CAPSULE BY MOUTH THREE TIMES DAILY, # 270 capsule, Refills 1, Tot. Refills1, 07/27/21 17:31:00 EDT, Instructions Replace Required Details, Route to Pharmacy Electronically, [facility] #[id number], 184.5, cm, 03/21/21 8:3... Start Date: 07/27/21 Status: Ordered tamsulosin 0.4 mg oral capsule 0.4 mg, 1, capsule, By Mouth, Daily at bedtime, # 30 capsule, Refills 5, Tot. Refills 5, Maintenance, 04/16/22 15:56:00 EST, Route to Pharmacy Electronically, [facility] #[id number], Partial fill upon patient request if the [...] Care Team Personnel Name: Miranda Cuevas Position: [facility] RN Member Role: Primary Care Nurse Name: Gabrielle Giles Position: [facility] RN Member Role: Primary Care Nurse Name: Nazario Mayer MD Position: [facility] Primary Care Physician Member Role: PCP Address: Address: [address] [place] [address]- Care Team Related Persons Name: SHALOM DOLAN Address: [address] [address] Name: WILLOW JOVEL Address: home [address] [place] [address] Name: RODNEY JAMES Address: home [address] [place] [address]
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
--- OUTSIDE RECORDS SUMMARY | 2022-05-19 20:30 | XMS_ITS | Continuity of Care Document ---
Author Name Unknown Organization [facility] Venkata lt Address [address] [place] [address]- Care Team Providers Care Sheep Sorter Name Role Phone Rehan FLOREZ, Nazario Jensen Primary Care Physician [place] [facility] [place] 03/13/22 - 04/12/22 [facility] Adult [address] [place] [address]- Allergies, Adverse Reactions, Alerts Substance Reaction Severity [...] Stop 09/22/22 17:51:00 EDT, 03/26/22 17:51:00 EST, [facility] #[id number], 184.5, cm, 02/20/22 9:16:00 EST, Height Start Date: 03/26/22 Stop Date: 09/22/22 Status: Ordered gabapentin 400 mg oral capsule See Instructions, TAKE 1 CAPSULE BY MOUTH THREE TIMES DAILY, # 270 capsule, Refills 1, Tot. Refills1, 07/27/21 17:31:00 EDT, Instructions Replace Required Details, Route to Pharmacy Electronically, [facility] #[id number], 184.5, cm, 03/21/21 8:3... Start Date: 07/27/21 Status: Ordered Tessalon Perles 100 mg oral capsule 1 capsule = 100 mg, By Mouth, 3 times a day, for 10 days, # 30 capsule, 0 Refills, Acute 04/20/22 17:32:00 EST, 04/10/22 17:32:00 EST, Capsule, [facility] #[id number], Partial fill upon patient request if the prescription is for a schedule II opi... Start Date: 04/10/22 Stop Date: 04/20/22 Status: Ordered Problem List Condition Confirmation Course [...] Care Team Personnel Name: Miranda Cuevas Position: [facility] RN Member Role: Primary Care Nurse Name: Gabrielle Giles Position: [facility] RN Member Role: Primary Care Nurse Name: Nazario Mayer MD Position: [facility] Primary Care Physician Member Role: PCP Address: Address: [address] [place] [address]- Care Team Related Persons Name: SHALOM DOLAN Address: home [address] [place] [address] Name: WILLOW JOVEL Address: home [address] [place] [address] Name: RODNEY JAMES Address: home [address] [place] [address]
--- OUTSIDE RECORDS SUMMARY | 2022-05-19 20:30 | XMS_ITS | Continuity of Care Document ---
Author Name Unknown Organization [facility] Venkata lt Address [address] [place] [address]- Care Team Providers Care Wax Ball Molder Name Role Phone Rehan FLOREZ, Nazario Jensen Primary Care Physician Encounter [facility] [place] Date(s): 05/18/20 - 06/17/20 [facility] Adult [address] [place] [address]- Allergies, Adverse Reactions, Alerts Substance Reaction Severity [...] capsule, 5 Refills, Maintenance, 05/30/20 12:58:00 EDT, [facility] #[id number], 184.5, cm, 05/09/20 9:04:00 EDT, Height Start Date: 05/30/20 Status: Ordered gabapentin 400 mg oral capsule See Instructions, TAKE 1 CAPSULE BY MOUTH THREE TIMES DAILY, # 270 capsule, Refills 1, Tot. Refills1, 03/04/20 16:23:00 EST, Instructions Replace Required Details, Route to Pharmacy Electronically, [facility] #[id number], 184.5, cm, 12/30/19 13:... Start Date: 03/04/20 Status: Ordered hydrOXYzine hydrochloride 50 mg oral tablet 1 tablet = 50 mg, By Mouth, 3 times a day, # 90 tablet, 2 Refills, Maintenance, 04/15/20 10:18:00 EST, [facility] #[id number], Partial fill upon patient request if the prescription is for a schedule II opioid drug., 184.5, cm, 04/15/20 9:27:00 ES... Start Date: 04/15/20 Status: Ordered tamsulosin 0.4 mg oral capsule 1, capsule, By Mouth, Daily, # 30 capsule, Refills 5, Tot. Refills 5, Maintenance, 05/29/20 21:04:00 EDT, Route to Pharmacy Electronically, [facility] #[id number], 184.5, cm, 05/09/20 9:04:00 EDT, Height Start Date: 05/29/20 Status: Ordered venlafaxine 150 mg oral capsule, extended release 150 mg, 1, capsule, By Mouth, Daily, # 90 capsule, Refills 1, Tot. Refills 1, Maintenance, 05/31/2111:59:00 EDT, Route to Pharmacy Electronically, [facility] #[id number], 184.5, cm, 05/09/20 9:04:00 EDT, Height Start [...]
--- OUTSIDE RECORDS SUMMARY | 2022-05-19 20:30 | XMS_ITS | Continuity of Care Document ---
Author Name Unknown Organization [facility] Venkata Address [address] [place] [address]- Care Team Providers Care Roofing Sales Representative Name Role Phone Nazario Mayer MD Primary Care Physician [phone] [place] [facility] [place]20/22 - 02/27/22 [facility] Adult [address] [place] [address]- Attending Physician: Nazario Mayer MD Allergies, Adverse [...] 07/24/21 11:11:00 EDT, Route to Pharmacy Electronically, [facility] #[id number], Partial fill upon patient request if the prescription is for a... Start Date: 07/24/21 Status: Ordered duloxetine 60 mg oral enteric coated capsule 1 capsule, By Mouth, Daily, # 30 capsule, 5 Refills, 07/27/21 16:26:00 EDT, [facility] #[id number], 184.5, cm, 03/21/21 8:31:00 EST, Height Start Date: 07/27/21 Status: Ordered gabapentin 400 mg oral capsule 1, capsule, By Mouth, 3 times a day, # 270 capsule, Refills 0, Tot. Refills 0, Maintenance, 09/05/20 9:01:00 EDT, Route to Pharmacy Electronically, [facility] #[id number], 184.5, cm, 08/15/20 13:20:00 EDT, Height Start Date: 09/05/20 Status: Ordered gabapentin 400 mg oral capsule See Instructions, TAKE 1 CAPSULE BY MOUTH THREE TIMES DAILY, # 270 capsule, Refills 1, Tot. Refills1, 07/27/21 17:31:00 EDT, Instructions Replace Required Details, Route to Pharmacy Electronically, [facility] #[id number], 184.5, cm, 03/21/21 8:3... Start Date: 07/27/21 Status: Ordered Guaiatussin AC 10 mg-100 mg/5 ml oral syrup 5 mL, By Mouth, Every 6 hours, PRN for cough and congestion, # 180 mL, 0 Refills, Maintenance, 02/26/22 10:16:00 EST, Syrup, [facility] #[id number], Partial fill upon patient request if the prescription is for a schedule II opioid drug., 5 mL By... Start Date: 02/26/22 Status: Ordered predniSONE 20 mg oral tablet 2 tablet = 40 mg, By Mouth, Daily, for 7 days, May stop medication early if wheezing resolves., # 14 tablet, 0 Refills, Acute 02/28/22 17:55:00 EST, 02/21/22 17:55:00 EST, Tablet, [facility] #[id number], Partial fill upon patient request if the p... Start Date: 02/21/22 Stop Date: 02/28/22 Status: Ordered tamsulosin 0.4 mg oral capsule 1, capsule, By Mouth, Daily, # 90 capsule, Refills 0, Tot. Refills 0, Maintenance, 08/15/21 13:42:00 EDT, Route to Pharmacy Electronically, [facility] #[id number], 184.5, cm, 03/21/21 8:31:00 EST, Height Start Date: 08/15/21 Status: Ordered Tessalon Perles 100 mg oral capsule 1 capsule = 100 mg, By Mouth, 3 times a day, for 7 days, # 21 capsule, 0 Refills, Acute 02/28/22 17:57:00 EST, 02/21/22 17:57:00 EST, Capsule, [facility] #[id number], Partial fill upon patient request if the prescription is for a schedule II opio... Start Date: 02/21/22 Stop Date: 02/28/22 Status: Ordered venlafaxine 37.5 mg oral capsule, [...] use Confirmed Active Umbilical hernia Confirmed Active Vital Signs Most recent to oldest [Reference Range]: 1 Height 184.5 cm (02/20/22 9:16 AM) Weight 86.3 kg (02/20/22 9:16 AM) Body Mass Index [18.5-24.99 kg/m2] 25.35 kg/m2 *H* (02/20/22 9:16 AM) Weight Obtained Via Standing scale (02/20/22 9:16 AM) Social History Social History Type Response Smoking Status Current every day gaye fox entered on: 05/06/15 Sex Male Patient Care team information Care Team Personnel Name: Miranda Cuevas Position: [facility] RN Member Role: Primary Care Nurse Name: Gabrielle Giles Position: [facility] RN Member Role: Primary Care Nurse Name: Rehan FLOREZ, Nazario Jensen Position: [facility] Primary Care Physician Member Role: PCP Address: Address: [address] [place] [address]- [place] Care Team Related Persons Name: SHALOM DOLAN Address: [address] [address] Name: WILLOW JOVEL Address: [address] [place] [address] Name: RODNEY JAMES Address: home [address] [place] [address]
--- OUTSIDE RECORDS SUMMARY | 2022-05-19 20:30 | XMS_ITS | Continuity of Care Document ---
Author Name Unknown Organization [facility] Ven[facility] lt Address [address] [place] [address]- Care Team Providers Care Urgent Care Physician Assistant Name Role Phone Rehan FLOREZ, Nazario Jensen Primary Care Physician Encounter [facility] [place] Date(s): 07/01/20 - 07/31/20 [facility] Adult [address] [place] [address]- Allergies, Adverse Reactions, Alerts Substance Reaction Severity [...] capsule, 5 Refills, Maintenance, 05/30/20 12:58:00 EDT, [facility] #[id number], 184.5, cm, 05/09/20 9:04:00 EDT, Height Start Date: 05/30/20 Status: Ordered gabapentin 400 mg oral capsule See Instructions, TAKE 1 CAPSULE BY MOUTH THREE TIMES DAILY, # 270 capsule, Refills 1, Tot. Refills1, 03/04/20 16:23:00 EST, Instructions Replace Required Details, Route to Pharmacy Electronically, [facility] #[id number], 184.5, cm, 12/30/19 13:... Start Date: 03/04/20 Status: Ordered hydrOXYzine hydrochloride 50 mg oral tablet 1 tablet = 50 mg, By Mouth, 3 times a day, # 90 tablet, 2 Refills, Maintenance, 04/15/20 10:18:00 EST, [facility] #[id number], Partial fill upon patient request if the prescription is for a schedule II opioid drug., 184.5, cm, 04/15/20 9:27:00 ES... Start Date: 04/15/20 Status: Ordered tamsulosin 0.4 mg oral capsule 1, capsule, By Mouth, Daily, # 30 capsule, Refills 5, Tot. Refills 5, Maintenance, 05/29/20 21:04:00 EDT, Route to Pharmacy Electronically, [facility] #[id number], 184.5, cm, 05/09/20 9:04:00 EDT, Height Start Date: 05/29/20 Status: Ordered tiZANidine 2 mg oral tablet 2 mg, 1, tablet, By Mouth, Every 8 hours, # 42 tablet, Refills 0, Tot. Refills 0, Maintenance, 07/14/20 21:10:00 EDT, Route to Pharmacy Electronically, [facility] #[id number], Partial fill upon patient request if the prescription is for a schedul... Start Date: 07/14/20 Status: Ordered venlafaxine 150 mg oral capsule, extended release 150 mg, 1, capsule, By Mouth, Daily, # 90 capsule, Refills 1, Tot. Refills 1, Maintenance, 05/31/2111:59:00 EDT, Route to Pharmacy Electronically, [facility] #[id number], 184.5, cm, 05/09/20 9:04:00 EDT, Height Start [...]
--- OUTSIDE RECORDS SUMMARY | 2022-05-19 20:30 | XMS_ITS | Continuity of Care Document ---
Author Name Unknown Organization [facility] [place] Venkata lt Address [address] [place] [address]- Care Team Providers Care Employment And Claims Aide Name Role Phone Nazario Mayer MD Primary Care Physician [place] [facility] [place]/17/20 - 12/15/20 [facility] [place] Adult [address] [place] [address]- Attending Physician: Nazario Mayer MD Allergies, Adverse [...] capsule, 5 Refills, Maintenance, 05/30/20 12:58:00 EDT, [facility] #[id number], 184.5, cm, 05/09/20 9:04:00 EDT, Height Start Date: 05/30/20 Status: Ordered gabapentin 400 mg oral capsule See Instructions, TAKE 1 CAPSULE BY MOUTH THREE TIMES DAILY, # 270 capsule, Refills 0, InstructionsReplace Required Details, Route to Pharmacy Electronically, [facility] #[id number], 184.5, cm,12/15/20 12:14:00 EDT, Height Start Date: 12/15/20 Status: Ordered gabapentin 400 mg oral capsule 1, capsule, By Mouth, 3 times a day, # 270 capsule, Refills 0, Tot. Refills 0, Maintenance, 09/05/20 9:01:00 EDT, Route to Pharmacy Electronically, [facility] #[id number], 184.5, cm, 08/15/20 13:20:00 EDT, Height Start Date: 09/05/20 Status: Ordered tamsulosin 0.4 mg oral capsule 1, capsule, By Mouth, Daily, # 90 capsule, Refills 0, Route to Pharmacy Electronically, [facility] #[id number], 184.5, cm, 12/15/20 12:14:00 EDT, Height Start Date: 12/15/20 Status: Ordered venlafaxine 150 mg oral capsule, extended release 1 capsule, By Mouth, Daily, # 90 capsule, 1 Refills, [facility] #[id number], 184.5, cm, 08/15/20 13:20:00 EDT, Height Start Date: 12/05/20 Status: Ordered Problem List Condition Effective Dates [...]
--- OUTSIDE RECORDS SUMMARY | 2022-05-19 20:30 | XMS_ITS | Continuity of Care Document ---
Author Name Unknown Organization [facility] Venkata Address [address] [place] [address]- Care Team Providers Care Alfalfa Dehydrator Operator Name Role Phone Rehan FLOREZ, Nazario Jensen Primary Care Physician Encounter [facility] [place] Date(s): 07/12/20 - 08/11/20 [facility] Adult [address] [place] [address]- Allergies, Adverse Reactions, Alerts Substance Reaction Severity [...] capsule, 5 Refills, Maintenance, 05/30/20 12:58:00 EDT, [facility] #[id number], 184.5, cm, 05/09/20 9:04:00 EDT, Height Start Date: 05/30/20 Status: Ordered gabapentin 400 mg oral capsule See Instructions, TAKE 1 CAPSULE BY MOUTH THREE TIMES DAILY, # 270 capsule, Refills 1, Tot. Refills1, 03/04/20 16:23:00 EST, Instructions Replace Required Details, Route to Pharmacy Electronically, [facility] #[id number], 184.5, cm, 12/30/19 13:... Start Date: 03/04/20 Status: Ordered hydrOXYzine hydrochloride 50 mg oral tablet 1 tablet = 50 mg, By Mouth, 3 times a day, # 90 tablet, 2 Refills, Maintenance, 04/15/20 10:18:00 EST, [facility] #[id number], Partial fill upon patient request if the prescription is for a schedule II opioid drug., 184.5, cm, 04/15/20 9:27:00 ES... Start Date: 04/15/20 Status: Ordered tamsulosin 0.4 mg oral capsule 1, capsule, By Mouth, Daily, # 30 capsule, Refills 5, Tot. Refills 5, Maintenance, 05/29/20 21:04:00 EDT, Route to Pharmacy Electronically, [facility] #[id number], 184.5, cm, 05/09/20 9:04:00 EDT, Height Start Date: 05/29/20 Status: Ordered tiZANidine 2 mg oral tablet 2 mg, 1, tablet, By Mouth, Every 8 hours, # 42 tablet, Refills 0, Tot. Refills 0, Maintenance, 07/14/20 21:10:00 EDT, Route to Pharmacy Electronically, [facility] #[id number], Partial fill upon patient request if the prescription is for a schedul... Start Date: 07/14/20 Status: Ordered venlafaxine 150 mg oral capsule, extended release 150 mg, 1, capsule, By Mouth, Daily, # 90 capsule, Refills 1, Tot. Refills 1, Maintenance, 05/31/2111:59:00 EDT, Route to Pharmacy Electronically, [facility] #[id number], 184.5, cm, 05/09/20 9:04:00 EDT, Height Start [...]
--- OUTSIDE RECORDS SUMMARY | 2022-05-19 20:30 | XMS_ITS | Continuity of Care Document ---
Author Name Unknown Organization [facility] Venkata lt Address [address] [place] [address]- Care Team Providers Care Green Chain Off Bearer Name Role Phone Rehan FLOREZ, Nazario Jensen Primary Care Physician Encounter [facility] [place] Date(s): 01/27/20 - 02/26/20 [facility] Adult [address] [place] [address]- Allergies, Adverse Reactions, Alerts Substance Reaction Severity [...] capsule, 0 Refills, Maintenance, 02/24/20 11:50:00 EST, [facility] #[id number], 184.5, cm, 12/30/19 13:17:00 EST, Height Start Date: 02/24/20 Status: Ordered gabapentin 400 mg oral capsule 1, capsule, By Mouth, 3 times a day, # 90 capsule, Refills 0, Tot. Refills 0, Maintenance, 10/20/2011:40:00 EDT, Route to Pharmacy Electronically, [facility] #[id number], 184.5, cm, 10/15/19 8:16:00 EDT, Height Start Date: 10/20/19 Status: Ordered gabapentin 400 mg oral capsule See Instructions, TAKE 1 CAPSULE BY MOUTH THREE TIMES DAILY, # 90 capsule, Refills 0, Maintenance, Instructions Replace Required Details, Route to Pharmacy Electronically, [facility] #[id number], 184.5, cm, 12/30/19 13:17:00 EST, Height Start Date: 01/28/20 Status: Ordered tamsulosin 0.4 mg oral capsule 0.4 mg, 1, capsule, By Mouth, Daily, # 30 capsule, Refills 5, Tot. Refills 5, Maintenance, 10/19/2011:42:00 EDT, Route to Pharmacy Electronically, [facility] #[id number], 184.5, cm, 10/15/19 8:16:00 EDT, Height Start Date: 10/19/19 Status: Ordered tiZANidine 4 mg oral capsule 1 capsule = 4 mg, By Mouth, 3 times a day, # 42 capsule, 0 Refills, Maintenance, 01/28/20 12:25:00 EST, Capsule, [facility] #[id number], 184.5, cm, 12/30/19 13:17:00 EST, Height Start Date: 01/28/20 Status: Ordered traMADol 50 mg oral tablet 1 tablet = 50 mg, By Mouth, Every 6 hours, PRN as needed for pain, # 24 tablet, 0 Refills, Maintenance, 12/30/19 14:09:00 EST, Tablet, [facility] #[id number], 184.5, cm, 12/30/19 13:17:00 EST, Height Start Date: 12/30/19 Status: Ordered venlafaxine 150 mg oral capsule, extended release 150 mg, 1, capsule, By Mouth, Daily, # 90 capsule, Refills 1, Tot. Refills 1, Maintenance, :07:00 EST, Route to Pharmacy Electronically, [facility] #[id number], 184.5, cm, 10/15/19 8:16:00 EDT, Height Start [...]
--- OUTSIDE RECORDS SUMMARY | 2022-05-19 20:30 | XMS_ITS | Continuity of Care Document ---
Author Name Unknown Organization [facility] Venkata lt Address [address] [place] [address]- Care Team Providers Care Slicing Machine Operator Name Role Phone Nazario Mayer MD Primary Care Physician En[place] [facility] [place]s): 04/02/22 - 04/09/22 [facility] Adult [address] [place] [address]- Attending Physician: Nazario Mayer MD Allergies, Adverse [...] Stop 09/22/22 17:51:00 EDT, 03/26/22 17:51:00 EST, [facility] #[id number], 184.5, cm, 02/20/22 9:16:00 EST, Height Start Date: 03/26/22 Stop Date: 09/22/22 Status: Ordered gabapentin 400 mg oral capsule See Instructions, TAKE 1 CAPSULE BY MOUTH THREE TIMES DAILY, # 270 capsule, Refills 1, Tot. Refills1, 07/27/21 17:31:00 EDT, Instructions Replace Required Details, Route to Pharmacy Electronically, [facility] #[id number], 184.5, cm, 03/21/21 8:3... Start Date: 07/27/21 Status: Ordered Problem List Condition Confirmation Course [...] oldest [Reference Range]: 1 Height 184.5 cm (04/02/22 10:57 AM) Weight 86.17 kg (04/02/22 10:57 AM) Body Mass Index [18.5-24.99 kg/m2] 25.31 kg/m2 *H* (04/02/22 10:57 AM) Weight Obtained Via Patient/family state d (04/02/22 10:57 AM) Social History Social History Type Response Smoking Status Current every day gaye dominique entered on: 05/06/15 Sex Male Patient Care team information Care Team Personnel Name: Miranda Cuevas Position: [facility] RN Member Role: Primary Care Nurse Name: Gabrielle Giles Position: [facility] RN Member Role: Primary Care Nurse Name: Nazario Mayer MD Position: [facility] Primary Care Physician Member Role: PCP Address: Address: [address] [place] [address]- Care Team Related Persons Name: SHALOM DOLAN Address: home [address] [place] [address] Name: WILLOW JOVEL Address: home [address] [place] [address] Name: RODNEY JAMES Address: home [address] [place] [address]
--- OUTSIDE RECORDS SUMMARY | 2022-05-19 20:30 | XMS_ITS | Continuity of Care Document ---
Author Name Unknown Organization [facility] ter Address [address] [place] [address]- Care Team Providers Care Economic Forecaster Name Role Phone Nazario Mayer MD Primary Care Physician [phone] Encounter [facility] [place] Date(s): 10/26/20 - 12/14/[address] [address] Attending Physician: Nazario Mayer MD Admitting Physician: Nazario Mayer MD Referring Physician: Nazario Mayer MD Allergies, Adverse Reactions, [...] capsule, 5 Refills, Maintenance, 05/30/20 12:58:00 EDT, [facility] #[id number], 184.5, cm, 05/09/20 9:04:00 EDT, Height Start Date: 05/30/20 Status: Ordered gabapentin 400 mg oral capsule 1, capsule, By Mouth, 3 times a day, # 270 capsule, Refills 0, Tot. Refills 0, Maintenance, 09/05/20 9:01:00 EDT, Route to Pharmacy Electronically, [facility] #[id number], 184.5, cm, 08/15/20 13:20:00 EDT, Height Start Date: 09/05/20 Status: Ordered tamsulosin 0.4 mg oral capsule 1, capsule, By Mouth, Daily, # 30 capsule, Refills 5, Tot. Refills 5, Maintenance, 05/29/20 21:04:00 EDT, Route to Pharmacy Electronically, [facility] #[id number], 184.5, cm, 05/09/20 9:04:00 EDT, Height Start Date: 05/29/20 Status: Ordered tiZANidine 2 mg oral tablet 2 mg, 1, tablet, By Mouth, Every 8 hours, # 42 tablet, Refills 0, Tot. Refills 0, Maintenance, 07/14/20 21:10:00 EDT, Route to Pharmacy Electronically, [facility] #[id number], Partial fill upon patient request if the prescription is for a schedul... Start Date: 07/14/20 Status: Ordered venlafaxine 150 mg oral capsule, extended release 1 capsule, By Mouth, Daily, # 90 capsule, 1 Refills, [facility] #[id number], 184.5, cm, 08/15/20 13:20:00 EDT, Height Start [...]
--- OUTSIDE RECORDS SUMMARY | 2022-05-19 20:30 | XMS_ITS | Continuity of Care Document ---
Author Name Unknown Organization [facility] ter Address [address] [place] [id number]- Care Team Providers Care Larriman Helper Name Role Phone Nazario Van MD Primary Care Physician Encounter [facility] [place] Date(s): 10/24/19 - 10/25/[address] [address]- [facility] Discharge Disposition: A-D/C Home Attending Physician: Keely Garrett DO Admitting Physician: Keely Garrett DO Referring Physician: Not on Staff, Referring [...] 5 Refills, Soft Stop, 02/09/19 9:21:00 EST, [facility] #[id number], 184.5, cm, 08/07/18 11:41:00 EDT, Height Start Date: 02/09/19 Status: Ordered gabapentin 400 mg oral capsule 1, capsule, By Mouth, 3 times a day, # 90 capsule, Refills 0, Tot. Refills 0, Maintenance, 10/20/2011:40:00 EDT, Route to Pharmacy Electronically, [facility] #[id number], 184.5, cm, 10/15/19 8:16:00 EDT, Height Start Date: 10/20/19 Status: Ordered tamsulosin 0.4 mg oral capsule 0.4 mg, 1, capsule, By Mouth, Daily, # 30 capsule, Refills 5, Tot. Refills 5, Maintenance, 10/19/2011:42:00 EDT, Route to Pharmacy Electronically, [facility] #[id number], 184.5, cm, 10/15/19 8:16:00 EDT, Height Start Date: 10/19/19 Status: Ordered tiZANidine 4 mg oral capsule 1 capsule = 4 mg, By Mouth, 3 times a day, # 42 capsule, 0 Refills, Maintenance, 10/15/19 10:28:00 EDT, Capsule, [facility] #[id number], 184.5, cm, 10/15/19 8:16:00 EDT, Height Start Date: 10/15/19 Status: Ordered venlafaxine 150 mg oral capsule, extended release 150 mg, 1, capsule, By Mouth, Daily, # 90 capsule, Refills 1, Tot. Refills 1, Maintenance, 06/28/2012:34:00 EDT, Route to Pharmacy Electronically, [facility] #[id number], 184.5, cm, 06/29/19 12:56:00 EDT, Height Start [...] Range]: 1 2 Oxygen Saturation [94-100 %] 97 % (10/25/19 4:21 AM) 98 % (10/25/19 12:13 AM) Pulse Rate [55-90 bpm] 89 bpm (10/25/19 4:21 AM) 80 bpm (10/25/19 12:13 AM) Blood Pressure [90-138/55-84 mm Hg] 114/ 67mm Hg (10/25/19 4:21 AM) 104/66mm Hg (10/25/19 12:13 AM) Respiratory Rate [16-30 br/min] 20 br/mi n (10/25/19 4:21 AM) 17 br/min (10/25/19 12:13 AM) Temperature [96.8-100.4 DegF] 98.7 DegF (10/25/19 12:13 AM) Mode of Delivery (Oxygen) Room air (10/25/19 4:21 AM) Room air (10/25/19 12:13 AM) Blood pressure sites Arm, left (10/25/19 4:21 AM) Arm, left (10/25/19 12:13 AM) Temperature Route Oral (10/25/19 12:13 AM) Social History Social History Type Response Smoking Status Current every day gaye fox entered on: 05/06/15 Sex Male
--- OUTSIDE RECORDS SUMMARY | 2022-05-19 20:30 | XMS_ITS | Continuity of Care Document ---
Author Name Unknown Organization [facility] Ven[address]ata lt Address [address] [place] [address]- Care Team Providers Care Concrete Saw Operator Name Role Phone Rehan FLOREZ, Nazario Jensen Primary Care Physician Encounter [facility] Date(s): 12/29/19 - 01/28/20 [facility] Adult [address] [place] [address]- Allergies, Adverse Reactions, Alerts Substance Reaction Severity [...] Daily, # 30 capsule, 0 Refills, Maintenance, 01/28/20 12:26:00 EST, [facility] #[id number], 184.5, cm, 12/30/19 13:17:00 EST, Height Start Date: 01/28/20 Status: Ordered gabapentin 400 mg oral capsule 1, capsule, By Mouth, 3 times a day, # 90 capsule, Refills 0, Tot. Refills 0, Maintenance, 10/20/2011:40:00 EDT, Route to Pharmacy Electronically, [facility] #[id number], 184.5, cm, 10/15/19 8:16:00 EDT, Height Start Date: 10/20/19 Status: Ordered gabapentin 400 mg oral capsule See Instructions, TAKE 1 CAPSULE BY MOUTH THREE TIMES DAILY, # 90 capsule, Refills 0, Maintenance, Instructions Replace Required Details, Route to Pharmacy Electronically, [facility] #[id number], 184.5, cm, 12/30/19 13:17:00 EST, Height Start Date: 01/28/20 Status: Ordered tamsulosin 0.4 mg oral capsule 0.4 mg, 1, capsule, By Mouth, Daily, # 30 capsule, Refills 5, Tot. Refills 5, Maintenance, 10/19/2011:42:00 EDT, Route to Pharmacy Electronically, [facility] #[id number], 184.5, cm, 10/15/19 8:16:00 EDT, Height Start Date: 10/19/19 Status: Ordered tiZANidine 4 mg oral capsule 1 capsule = 4 mg, By Mouth, 3 times a day, # 42 capsule, 0 Refills, Maintenance, 01/28/20 12:25:00 EST, Capsule, [facility] #[id number], 184.5, cm, 12/30/19 13:17:00 EST, Height Start Date: 01/28/20 Status: Ordered traMADol 50 mg oral tablet 1 tablet = 50 mg, By Mouth, Every 6 hours, PRN as needed for pain, # 24 tablet, 0 Refills, Maintenance, 12/30/19 14:09:00 EST, Tablet, [facility] #[id number], 184.5, cm, 12/30/19 13:17:00 EST, Height Start Date: 12/30/19 Status: Ordered venlafaxine 150 mg oral capsule, extended release 150 mg, 1, capsule, By Mouth, Daily, # 90 capsule, Refills 1, Tot. Refills 1, Maintenance, :07:00 EST, Route to Pharmacy Electronically, [facility] #[id number], 184.5, cm, 10/15/19 8:16:00 EDT, Height Start [...]
--- OUTSIDE RECORDS SUMMARY | 2022-05-19 20:30 | XMS_ITS | Continuity of Care Document ---
Author Name Unknown Organization [facility] Venkata lt Address [address] [place] [address]- Care Team Providers Care Welder Machine Operator Name Role Phone Rehan FLOREZ, Nazario Jensen Primary Care Physician [place] [facility] [place] 12/[place] - 01/29/20 [facility] Adult [address] [place] [address]- Attending Physician: Scott Hercules Admitting Physician: AdmScott [...] capsule, 0 Refills, Maintenance, 01/28/20 12:26:00 EST, [facility] #[id number], 184.5, cm, 12/30/19 13:17:00 EST, Height Start Date: 01/28/20 Status: Ordered gabapentin 400 mg oral capsule 1, capsule, By Mouth, 3 times a day, # 90 capsule, Refills 0, Tot. Refills 0, Maintenance, 10/20/2011:40:00 EDT, Route to Pharmacy Electronically, [facility] #[id number], 184.5, cm, 10/15/19 8:16:00 EDT, Height Start Date: 10/20/19 Status: Ordered gabapentin 400 mg oral capsule See Instructions, TAKE 1 CAPSULE BY MOUTH THREE TIMES DAILY, # 90 capsule, Refills 0, Maintenance, Instructions Replace Required Details, Route to Pharmacy Electronically, [facility] #[id number], 184.5, cm, 12/30/19 13:17:00 EST, Height Start Date: 01/28/20 Status: Ordered tamsulosin 0.4 mg oral capsule 0.4 mg, 1, capsule, By Mouth, Daily, # 30 capsule, Refills 5, Tot. Refills 5, Maintenance, 10/19/2011:42:00 EDT, Route to Pharmacy Electronically, [facility] #[id number], 184.5, cm, 10/15/19 8:16:00 EDT, Height Start Date: 10/19/19 Status: Ordered tiZANidine 4 mg oral capsule 1 capsule = 4 mg, By Mouth, 3 times a day, # 42 capsule, 0 Refills, Maintenance, 01/28/20 12:25:00 EST, Capsule, [facility] #[id number], 184.5, cm, 12/30/19 13:17:00 EST, Height Start Date: 01/28/20 Status: Ordered traMADol 50 mg oral tablet 1 tablet = 50 mg, By Mouth, Every 6 hours, PRN as needed for pain, # 24 tablet, 0 Refills, Maintenance, 12/30/19 14:09:00 EST, Tablet, [facility] #[id number], 184.5, cm, 12/30/19 13:17:00 EST, Height Start Date: 12/30/19 Status: Ordered venlafaxine 150 mg oral capsule, extended release 150 mg, 1, capsule, By Mouth, Daily, # 90 capsule, Refills 1, Tot. Refills 1, Maintenance, :07:00 EST, Route to Pharmacy Electronically, [facility] #[id number], 184.5, cm, 10/15/19 8:16:00 EDT, Height Start [...]
--- OUTSIDE RECORDS SUMMARY | 2022-05-19 20:30 | XMS_ITS | Continuity of Care Document ---
Author Name Unknown Organization [facility] lt Address [address] [place] [address]- Care Team Providers Care Knowledge Management Consultant Name Role Phone Rehan FLOREZ, Nazario Jensen Primary Care Physician [place] [facility] [place] - 04/29/20 [facility] Adult [address] [place] [address]- Allergies, Adverse Reactions, Alerts Substance Reaction Severity [...] capsule, 0 Refills, Maintenance, 04/27/20 16:45:00 EST, [facility] #[id number], 184.5, cm, 04/15/20 9:27:00 EST, Height Start Date: 04/27/20 Status: Ordered gabapentin 400 mg oral capsule 1, capsule, By Mouth, 3 times a day, # 90 capsule, Refills 0, Tot. Refills 0, Maintenance, 10/20/2011:40:00 EDT, Route to Pharmacy Electronically, [facility] #[id number], 184.5, cm, 10/15/19 8:16:00 EDT, Height Start Date: 10/20/19 Status: Ordered gabapentin 400 mg oral capsule See Instructions, TAKE 1 CAPSULE BY MOUTH THREE TIMES DAILY, # 270 capsule, Refills 1, Tot. Refills1, 03/04/20 16:23:00 EST, Instructions Replace Required Details, Route to Pharmacy Electronically, [facility] #[id number], 184.5, cm, 12/30/19 13:... Start Date: 03/04/20 Status: Ordered hydrOXYzine hydrochloride 50 mg oral tablet 1 tablet = 50 mg, By Mouth, 3 times a day, # 90 tablet, 2 Refills, Maintenance, 04/15/20 10:18:00 EST, [facility] #[id number], Partial fill upon patient request if the prescription is for a schedule II opioid drug., 184.5, cm, 04/15/20 9:27:00 ES... Start Date: 04/15/20 Status: Ordered tamsulosin 0.4 mg oral capsule 1, capsule, By Mouth, Daily, # 30 capsule, Refills 0, Tot. Refills 0, Maintenance, 04/27/20 16:45:00 EST, Route to Pharmacy Electronically, [facility] #[id number], 184.5, cm, 04/15/20 9:27:00 EST, Height Start Date: 04/27/20 Status: Ordered venlafaxine 150 mg oral capsule, extended release 150 mg, 1, capsule, By Mouth, Daily, # 90 capsule, Refills 1, Tot. Refills 1, Maintenance, 209:07:00 EST, Route to Pharmacy Electronically, [facility] #[id number], 184.5, cm, 10/15/19 8:16:00 EDT, Height Start [...]
--- OUTSIDE RECORDS SUMMARY | 2022-05-19 20:30 | XMS_ITS | Continuity of Care Document ---
Author Name Unknown Organization [facility] Venk[facility] lt Address [address] [place] [address]- Care Team Providers Care Whiskey Proof Reader Name Role Phone Nazario Van MD Primary Care Physician [phone] Encounter [facility] [place] Date(s): 04/24/19 - 05/01/19 [facility] Adult [address] [place] [address]- [facility] Attending Physician: Nazario Van MD Allergies, [...] 5 Refills, Soft Stop, 02/09/19 9:21:00 EST, [facility] #[id number], 184.5, cm, 08/07/18 11:41:00 EDT, Height Start Date: 02/09/19 Status: Ordered gabapentin 400 mg oral capsule 1, capsule, By Mouth, 3 times a day, # 90 capsule, Refills 2, Tot. Refills 2, Maintenance, 03/25/2011:24:00 EST, Route to Pharmacy Electronically, [facility] #[id number], 184.5, cm, 08/07/18 11:41:00 EDT, Height, Dry Weight Start Date: 03/25/19 Status: Ordered tamsulosin 0.4 mg oral capsule 0.4 mg, 1, capsule, By Mouth, Daily, # 30 capsule, Refills 5, Tot. Refills 5, Maintenance, 04/23/2014:18:00 EST, Route to Pharmacy Electronically, [facility] #[id number], 184.5, cm, 04/24/19 14:57:00 EST, Height Start Date: 04/24/19 Status: Ordered venlafaxine 75 mg oral capsule, extended release 75 mg, 1, capsule, By Mouth, Daily, # 30 capsule, Refills 2, Tot. Refills 2, Maintenance, 03/25/19 12:07:00 EST, Route to Pharmacy Electronically, [facility] #[id number], 184.5, cm, 08/07/18 11:41:00 EDT, Height Start [...] oldest [Reference Range]: 1 Height 184.5 cm (04/24/19 2:57 PM) Weight 87.6 kg (04/24/19 2:57 PM) Oxygen Saturation [94-100 %] 97 % (04/24/19 2:57 PM) Pulse Rate [55-90 bpm] 91 bpm *H* (04/24/19 2:57 PM) Body Mass Index [18.5-24.99] 25.73 *H* (04/24/19 2:57 PM) Blood Pressure [90-138/55-84 mm Hg] 126/ 72mm Hg (04/24/19 2:57 PM) Respiratory Rate [16-30 br/min] 16 br/mi n (04/24/19 2:57 PM) Temperature [96.8-100.4 DegF] 98.1 DegF (04/24/19 2:57 PM) Mode of Delivery (Oxygen) Room air (04/24/19 2:57 PM) Blood pressure sites Arm, left (04/24/19 2:57 PM) Temperature Route Oral (04/24/19 2:57 PM) Weight Obtained Via Standing scale (04/24/19 2:57 PM) Social History Social History Type Response Smoking Status Current every day gaye fox entered on: 05/06/15 Sex
--- OUTSIDE RECORDS SUMMARY | 2022-05-19 20:31 | XMS_ITS | Continuity of Care Document ---
Author Name Unknown Organization [facility] Venk[facility] lt Address [address] [place] [address]- Care Team Providers Care Public Space Attendant Name Role Phone Rehan FLOREZ, Nazario Jensen Primary Care Physician Encounter [facility] [place] Date(s): 03/16/20 - 04/15/20 [facility] [place] Adult [address] [place] [address]- Allergies, Adverse Reactions, Alerts Substance Reaction Severity [...] CAPSULE BY MOUTH DAILY, # 30 capsule, 0 Refills, Maintenance, [facility] #[id number], 184.5, cm, 03/17/20 7:53:00 EST, Height Start Date: 03/30/20 Status: Ordered gabapentin 400 mg oral capsule 1, capsule, By Mouth, 3 times a day, # 90 capsule, Refills 0, Tot. Refills 0, Maintenance, 10/20/2011:40:00 EDT, Route to Pharmacy Electronically, [facility] #[id number], 184.5, cm, 10/15/19 8:16:00 EDT, Height Start Date: 10/20/19 Status: Ordered gabapentin 400 mg oral capsule See Instructions, TAKE 1 CAPSULE BY MOUTH THREE TIMES DAILY, # 270 capsule, Refills 1, Tot. Refills1, 03/04/20 16:23:00 EST, Instructions Replace Required Details, Route to Pharmacy Electronically, [facility] #[id number], 184.5, cm, 12/30/19 13:... Start Date: 03/04/20 Status: Ordered hydrOXYzine hydrochloride 50 mg oral tablet 1 tablet = 50 mg, By Mouth, 3 times a day, # 90 tablet, 2 Refills, Maintenance, 04/15/20 10:18:00 EST, [facility] #[id number], Partial fill upon patient request if the prescription is for a schedule II opioid drug., 184.5, cm, 04/15/20 9:27:00 ES... Start Date: 04/15/20 Status: Ordered tamsulosin 0.4 mg oral capsule 0.4 mg, 1, capsule, By Mouth, Daily, # 30 capsule, Refills 5, Tot. Refills 5, Maintenance, 10/19/2011:42:00 EDT, [facility][id number], 184.5, cm, 10/15/19 8:16:00 EDT, Height Start Date: 10/19/19 Status: Ordered venlafaxine 150 mg oral capsule, extended release 150 mg, 1, capsule, By Mouth, Daily, # 90 capsule, Refills 1, Tot. Refills 1, Maintenance, :07:00 EST, Route to Pharmacy Electronically, [facility] #[id number], 184.5, cm, 10/15/19 8:16:00 EDT, Height Start [...]
--- OUTSIDE RECORDS SUMMARY | 2022-05-19 20:31 | XMS_ITS | Continuity of Care Document ---
Author Name Unknown Organization [facility] [place] Venkata lt Address [address] [place] [address]- Care Team Providers Care Junior Network Engineer Name Role Phone Nazario Van MD Primary Care Physician [place] [facility] [place] 07/06/19 [facility] [place] Adult [address] [place] [address]- [facility] Attending Physician: Nazario Van MD Allergies, Adverse [...] 5 Refills, Soft Stop, 02/09/19 9:21:00 EST, [facility] #[id number], 184.5, cm, 08/07/18 11:41:00 EDT, Height Start Date: 02/09/19 Status: Ordered gabapentin 400 mg oral capsule 1, capsule, By Mouth, 3 times a day, # 90 capsule, Refills 0, Tot. Refills 0, Maintenance, 06/22/2009:48:00 EDT, Route to Pharmacy Electronically, [facility] #[id number], 184.5, cm, 04/24/19 14:57:00 EST, Height Start Date: 06/23/19 Status: Ordered tamsulosin 0.4 mg oral capsule 0.4 mg, 1, capsule, By Mouth, Daily, # 30 capsule, Refills 5, Tot. Refills 5, Maintenance, 04/23/2014:18:00 EST, Route to Pharmacy Electronically, [email or web address] #[id number], 184.5, cm, 04/24/19 14:57:00 EST, Height Start Date: 04/24/19 Status: Ordered venlafaxine 150 mg oral capsule, extended release 150 mg, 1, capsule, By Mouth, Daily, # 90 capsule, Refills 1, Tot. Refills 1, Maintenance, 06/28/2012:34:00 EDT, Route to Pharmacy Electronically, [email or web address] #[id number], 184.5, cm, 06/29/19 12:56:00 EDT, Height Start [...] oldest [Reference Range]: 1 Height 184.5 cm (06/29/19 12:56 PM) Social History Social History Type Response Smoking Status Current every day gaye fox entered on: 05/06/15 Sex
--- OUTSIDE RECORDS SUMMARY | 2022-05-19 20:31 | XMS_ITS | Continuity of Care Document ---
Author Name Unknown Organization [facility] Ven[facility] [place] Address [address] [place] [address]- Care Team Providers Care Packaging Designer Name Role Phone Rehan FLOREZ, Nazario Jensen Primary Care Physician [place] [facility] [place](s): 05/16/21 - 06/15/21 [facility] Adult [address] [place] [address]- Allergies, Adverse Reactions, Alerts Substance Reaction Severity [...] tablet, Refills 1, Tot. Refills 1, Maintenance, 05/04/21 17:59:00 EDT, Route to Pharmacy Electronically, [facility] #[id number], Partial fill upon patient request if the prescription is for a... Start Date: 05/04/21 Status: Ordered duloxetine 60 mg oral enteric coated capsule 1 capsule, By Mouth, Daily, # 30 capsule, 5 Refills, 02/22/21 11:47:00 EST, [facility] #[id number], 184.5, cm, 12/15/20 12:14:00 EDT, Height Start Date: 02/22/21 Status: Ordered gabapentin 400 mg oral capsule See Instructions, TAKE 1 CAPSULE BY MOUTH THREE TIMES DAILY, # 270 capsule, Refills 0, InstructionsReplace Required Details, Route to Pharmacy Electronically, [facility] #[id number], 184.5, cm,12/15/20 12:14:00 EDT, Height Start Date: 12/15/20 Status: Ordered gabapentin 400 mg oral capsule 1, capsule, By Mouth, 3 times a day, # 270 capsule, Refills 0, Tot. Refills 0, Maintenance, 09/05/20 9:01:00 EDT, Route to Pharmacy Electronically, [facility] #[id number], 184.5, cm, 08/15/20 13:20:00 EDT, Height Start Date: 09/05/20 Status: Ordered tamsulosin 0.4 mg oral capsule 1, capsule, By Mouth, Daily, # 90 capsule, Refills 0, Tot. Refills 0, Maintenance, 04/24/21 12:45:00 EST, Route to Pharmacy Electronically, [facility] #[id number], 184.5, cm, 03/21/21 8:31:00 EST, Height Start Date: 04/24/21 Status: Ordered venlafaxine 37.5 mg oral capsule, [...]
--- OUTSIDE RECORDS SUMMARY | 2022-05-19 20:31 | XMS_ITS | Continuity of Care Document ---
Author Name Unknown Organization [facility] Venkata lt Address [address] [place] [address]- Care Team Providers Care Artificial Foliage Arranger Name Role Phone Rehan FLOREZ, Nazario Jensen Primary Care Physician Encounter [facility] [place] Date(s): 08/25/19 - 09/24/19 [facility] Adult [address] [place] [address]- [facility] Allergies, Adverse Reactions, Alerts Substance Reaction Severity [...] 5 Refills, Soft Stop, 02/09/19 9:21:00 EST, [facility] #[id number], 184.5, cm, 08/07/18 11:41:00 EDT, Height Start Date: 02/09/19 Status: Ordered gabapentin 400 mg oral capsule 1, capsule, By Mouth, 3 times a day, # 90 capsule, Refills 0, Tot. Refills 0, Maintenance, 09/21/2013:22:00 EDT, Route to Pharmacy Electronically, [facility] #[id number], 184.5, cm, 06/29/19 12:56:00 EDT, Height Start Date: 09/22/19 Status: Ordered tamsulosin 0.4 mg oral capsule 0.4 mg, 1, capsule, By Mouth, Daily, # 30 capsule, Refills 5, Tot. Refills 5, Maintenance, 04/23/2014:18:00 EST, Route to Pharmacy Electronically, [facility] #[id number], 184.5, cm, 04/24/19 14:57:00 EST, Height Start Date: 04/24/19 Status: Ordered venlafaxine 150 mg oral capsule, extended release 150 mg, 1, capsule, By Mouth, Daily, # 90 capsule, Refills 1, Tot. Refills 1, Maintenance, 06/28/2012:34:00 EDT, Route to Pharmacy Electronically, [facility] #[id number], 184.5, cm, 06/29/19 12:56:00 EDT, Height Start [...]
--- OUTSIDE RECORDS SUMMARY | 2022-05-19 20:31 | XMS_ITS | Continuity of Care Document ---
Author Name Unknown Organization [facility] Venkata lt Address [address] [place] [address]- Care Team Providers Care Esl Tutor Name Role Phone Nazario Mayer MD Primary Care Physician [phone] [place] [facility] [facility] [place]28[place]20 - 04/27/21 [facility] Adult [address] [place] [address]- Attending Physician: Nazario Mayer MD Allergies, Adverse [...] 03/21/21 10:18:00 EST, Route to Pharmacy Electronically, [facility] #[id number], Partial fill upon patient request if the prescription is for a... Start Date: 03/21/21 Status: Ordered duloxetine 60 mg oral enteric coated capsule 1 capsule, By Mouth, Daily, # 30 capsule, 5 Refills, 02/22/21 11:47:00 EST, [facility] #[id number], 184.5, cm, 12/15/20 12:14:00 EDT, Height Start Date: 02/22/21 Status: Ordered gabapentin 400 mg oral capsule See Instructions, TAKE 1 CAPSULE BY MOUTH THREE TIMES DAILY, # 270 capsule, Refills 0, InstructionsReplace Required Details, Route to Pharmacy Electronically, [facility] #[id number], 184.5, cm,12/15/20 12:14:00 EDT, Height Start Date: 12/15/20 Status: Ordered gabapentin 400 mg oral capsule 1, capsule, By Mouth, 3 times a day, # 270 capsule, Refills 0, Tot. Refills 0, Maintenance, 09/05/20 9:01:00 EDT, Route to Pharmacy Electronically, [facility] #[id number], 184.5, cm, 08/15/20 13:20:00 EDT, Height Start Date: 09/05/20 Status: Ordered tamsulosin 0.4 mg oral capsule 1, capsule, By Mouth, Daily, # 90 capsule, Refills 0, Tot. Refills 0, Maintenance, 04/24/21 12:45:00 EST, Route to Pharmacy Electronically, [facility] #[id number], 184.5, cm, 03/21/21 8:31:00 EST, Height Start [...]
--- OUTSIDE RECORDS SUMMARY | 2022-05-19 20:31 | XMS_ITS | Continuity of Care Document ---
Author Name Unknown Organization [facility] Ven[facility]ata lt Address [address] [place] [address]- Care Team Providers Care Tubing Mill Operator Name Role Phone Nazario Van MD Primary Care Physician En[place] [facility] [place] Date(s): 04/15/20 - 04/22/20 [facility] Adult [address] [place] [address]- Attending Physician: Nazario Van MD Allergies, Adverse [...] DAILY, # 30 capsule, 0 Refills, Maintenance, [facility] #[id number], 184.5, cm, 03/17/20 7:53:00 EST, Height Start Date: 03/30/20 Status: Ordered gabapentin 400 mg oral capsule 1, capsule, By Mouth, 3 times a day, # 90 capsule, Refills 0, Tot. Refills 0, Maintenance, 10/20/2011:40:00 EDT, Route to Pharmacy Electronically, [facility] #[id number], 184.5, cm, 10/15/19 8:16:00 EDT, Height Start Date: 10/20/19 Status: Ordered gabapentin 400 mg oral capsule See Instructions, TAKE 1 CAPSULE BY MOUTH THREE TIMES DAILY, # 270 capsule, Refills 1, Tot. Refills1, 03/04/20 16:23:00 EST, Instructions Replace Required Details, Route to Pharmacy Electronically, [facility] #[id number], 184.5, cm, 12/30/19 13:... Start Date: 03/04/20 Status: Ordered hydrOXYzine hydrochloride 50 mg oral tablet 1 tablet = 50 mg, By Mouth, 3 times a day, # 90 tablet, 2 Refills, Maintenance, 04/15/20 10:18:00 EST, [facility] #[id number], Partial fill upon patient request if the prescription is for a schedule II opioid drug., 184.5, cm, 04/15/20 9:27:00 ES... Start Date: 04/15/20 Status: Ordered tamsulosin 0.4 mg oral capsule 0.4 mg, 1, capsule, By Mouth, Daily, # 30 capsule, Refills 5, Tot. Refills 5, Maintenance, 10/19/2011:42:00 EDT, Route to Pharmacy Electronically, [facility] #[id number], 184.5, cm, 10/15/19 8:16:00 EDT, Height Start Date: 10/19/19 Status: Ordered venlafaxine 150 mg oral capsule, extended release 150 mg, 1, capsule, By Mouth, Daily, # 90 capsule, Refills 1, Tot. Refills 1, Maintenance, :07:00 EST, Route to Pharmacy Electronically, [facility] #[id number], 184.5, cm, 10/15/19 8:16:00 EDT, Height Start [...] oldest [Reference Range]: 1 Height 184.5 cm (04/15/20 9:27 AM) Weight 87.0 kg (04/15/20 9:27 AM) Body Mass Index [18.5-24.99] 25.56 *H* (04/15/20 9:27 AM) Weight Obtained Via Standing scale (04/15/20 9:27 AM) Social History Social History Type Response Smoking Status Current every day gaye fox entered on: 05/06/15 Sex Male
--- OUTSIDE RECORDS SUMMARY | 2022-05-19 20:31 | XMS_ITS | Continuity of Care Document ---
Author Name Unknown Organization [facility] Address [address] [place] [address]- Care Team Providers Care Allied Health Instructor Name Role Phone Nazario Van MD Primary Care Physician Encounter [facility] [place] Date(s): 04/28/19 - 06/03/19 [facility] [address] [address]- [facility] Attending Physician: Nazario Van MD Admitting Physician: Nazario Van MD Referring Physician: Nazario Van MD Allergies, Adverse Reactions, [...] 5 Refills, Soft Stop, 02/09/19 9:21:00 EST, [facility] #[id number], 184.5, cm, 08/07/18 11:41:00 EDT, Height Start Date: 02/09/19 Status: Ordered gabapentin 400 mg oral capsule 1, capsule, By Mouth, 3 times a day, # 90 capsule, Refills 2, Tot. Refills 2, Maintenance, 03/25/2011:24:00 EST, Route to Pharmacy Electronically, [facility] #[id number], 184.5, cm, 08/07/18 11:41:00 EDT, Height, Dry Weight Start Date: 03/25/19 Status: Ordered tamsulosin 0.4 mg oral capsule 0.4 mg, 1, capsule, By Mouth, Daily, # 30 capsule, Refills 5, Tot. Refills 5, Maintenance, 04/23/2014:18:00 EST, Route to Pharmacy Electronically, [facility] #[id number], 184.5, cm, 04/24/19 14:57:00 EST, Height Start Date: 04/24/19 Status: Ordered venlafaxine 75 mg oral capsule, extended release 75 mg, 1, capsule, By Mouth, Daily, # 30 capsule, Refills 2, Tot. Refills 2, Maintenance, 03/25/19 12:07:00 EST, Route to Pharmacy Electronically, [facility] #[id number], 184.5, cm, 08/07/18 11:41:00 EDT, Height Start [...]
--- OUTSIDE RECORDS SUMMARY | 2022-05-19 20:31 | XMS_ITS | Continuity of Care Document ---
Author Name Unknown Organization [facility] Address [address] [place] [address]- Care Team Providers Care Manager Cargo Name Role Phone Rehan FLOREZ, Nazario Jensen Primary Care Physician [phone] Encounter [facility] [place] Date(s): 03/01/20 - 03/31/20 [facility] Adult [address] [place] [address]- Allergies, Adverse Reactions, Alerts Substance Reaction Severity [...] DAILY, # 30 capsule, 0 Refills, Maintenance, [facility] #[id number], 184.5, cm, 03/17/20 7:53:00 EST, Height Start Date: 03/30/20 Status: Ordered gabapentin 400 mg oral capsule 1, capsule, By Mouth, 3 times a day, # 90 capsule, Refills 0, Tot. Refills 0, Maintenance, 10/20/2011:40:00 EDT, Route to Pharmacy Electronically, [facility] #[id number], 184.5, cm, 10/15/19 8:16:00 EDT, Height Start Date: 10/20/19 Status: Ordered gabapentin 400 mg oral capsule See Instructions, TAKE 1 CAPSULE BY MOUTH THREE TIMES DAILY, # 270 capsule, Refills 1, Tot. Refills1, 03/04/20 16:23:00 EST, Instructions Replace Required Details, [id number], 184.5, cm, 12/30/19 13:... Start Date: 03/04/20 Status: Ordered tamsulosin 0.4 mg oral capsule 0.4 mg, 1, capsule, By Mouth, Daily, # 30 capsule, Refills 5, Tot. Refills 5, Maintenance, 10/19/2011:42:00 EDT, Route to Pharmacy Electronically, [facility] #[id number], 184.5, cm, 10/15/19 8:16:00 EDT, Height Start Date: 10/19/19 Status: Ordered venlafaxine 150 mg oral capsule, extended release 150 mg, 1, capsule, By Mouth, Daily, # 90 capsule, Refills 1, Tot. Refills 1, Maintenance, :07:00 EST, [id number], 184.5, cm, 10/15/19 8:16:00 EDT, Height Start [...]
--- OUTSIDE RECORDS SUMMARY | 2022-05-19 20:31 | XMS_ITS | Continuity of Care Document ---
Author Name Unknown Organization [facility] Address [address] [place] [address]- Care Team Providers Care Plant Maintenance Supervisor Name Role Phone Rehan FLOREZ, Nazario Jensen Primary Care Physician En[place] [facility] [place] Date(s): 02/20/22 - 03/22/22 [facility] Adult [address] [place] [address]- Allergies, Adverse Reactions, Alerts Substance Reaction Severity [...] 07/24/21 11:11:00 EDT, Route to Pharmacy Electronically, [facility] #[id number], Partial fill upon patient request if the prescription is for a... Start Date: 07/24/21 Status: Ordered duloxetine 60 mg oral enteric coated capsule 1 capsule, By Mouth, Daily, # 30 capsule, 5 Refills, 07/27/21 16:26:00 EDT, [facility][id number], 184.5, cm, 03/21/21 8:31:00 EST, Height Start Date: 07/27/21 Status: Ordered gabapentin 400 mg oral capsule 1, capsule, By Mouth, 3 times a day, # 270 capsule, Refills 0, Tot. Refills 0, Maintenance, 09/05/20 9:01:00 EDT, [facility] to [facility]ically[facility][id number], 184.5, cm, 08/15/20 13:20:00 EDT, Height Start Date: 09/05/20 Status: Ordered gabapentin 400 mg oral capsule See Instructions, TAKE 1 CAPSULE BY MOUTH THREE TIMES DAILY, # 270 capsule, Refills 1, Tot. Refills1, 07/27/21 17:31:00 EDT, Instructions Replace Required Details, Route to Pharmacy Electronically, [facility] #[id number], 184.5, cm, 03/21/21 8:3... Start Date: 07/27/21 Status: Ordered tamsulosin 0.4 mg oral capsule 1, capsule, By Mouth, Daily, # 90 capsule, Refills 0, Tot. Refills 0, Maintenance, 08/15/21 13:42:00 EDT, Route to Pharmacy Electronically, [facility] #[id number], 184.5, cm, 03/21/21 8:31:00 EST, Height Start [...] Care Team Personnel Name: Miranda Cuevas Position: [facility] RN Member Role: Primary Care Nurse Name: Gabrielle Giles Position: [facility] RN Member Role: Primary Care Nurse Name: Nazario Mayer MD Position: [facility] Primary Care Physician Member Role: PCP Address: Address: [address] [place] [address]- Care Team Related Persons Name: SHALOM DOLAN Address: [address] [address] Name: WILLOW JOVEL Address: home [address] [place] [address] Name: RODNEY JAMES Address: home [address] [place] [address]
--- OUTSIDE RECORDS SUMMARY | 2022-05-19 20:31 | XMS_ITS | Continuity of Care Document ---
Author Name Unknown Organization [facility] Address [address] [place] [address]- Care Team Providers Care Obstetrics/Gynecology Nurse Name Role Phone Nazario Mayer MD Primary Care Physician [phone] Encounter [facility] [place] Date(s): 12/15/20 - 12/22/20 [facility] [address] [place] [address]- Attending Physician: Nazario Mayer MD Allergies, Adverse [...] capsule, 5 Refills, Maintenance, 05/30/20 12:58:00 EDT, [facility] #[id number], 184.5, cm, 05/09/20 9:04:00 EDT, Height Start Date: 05/30/20 Status: Ordered gabapentin 400 mg oral capsule See Instructions, TAKE 1 CAPSULE BY MOUTH THREE TIMES DAILY, # 270 capsule, Refills 0, InstructionsReplace Required Details, Route to Pharmacy Electronically, [facility] #[id number], 184.5, cm,12/15/20 12:14:00 EDT, Height Start Date: 12/15/20 Status: Ordered gabapentin 400 mg oral capsule 1, capsule, By Mouth, 3 times a day, # 270 capsule, Refills 0, Tot. Refills 0, Maintenance, 09/05/20 9:01:00 EDT, Route to Pharmacy Electronically, [facility] #17336, 184.5, cm, 08/15/20 13:20:00 EDT, Height Start Date: 09/05/20 Status: Ordered tamsulosin 0.4 mg oral capsule 1, capsule, By Mouth, Daily, # 90 capsule, Refills 0, Route to Pharmacy Electronically, [facility] #08698, 184.5, cm, 12/15/20 12:14:00 EDT, Height Start Date: 12/15/20 Status: Ordered venlafaxine 150 mg oral capsule, extended release 1 capsule, By Mouth, Daily, # 90 capsule, 1 Refills, [facility] #77211, 184.5, cm, 08/15/20 13:20:00 EDT, Height Start [...] oldest [Reference Range]: 1 Height 184.5 cm (12/15/20 12:14 PM) Weight 86.36 kg (12/15/20 12:14 PM) Body Mass Index [18.5-24.99] 25.37 *H* (12/15/20 12:14 PM) Weight Obtained Via Standing scale (12/15/20 12:14 PM) Social History Social History Type Response Smoking Status Current every day gaye fox entered on: 05/06/15 Sex Male
--- OUTSIDE RECORDS SUMMARY | 2022-05-19 20:31 | XMS_ITS | Continuity of Care Document ---
Author Name Unknown Organization [facility] Address [address] [place] [address]- Care Team Providers Care Justice Professor Name Role Phone Rehan FLOREZ, Nazario Jensen Primary Care Physician Encounter [facility] [place] Date(s): 10/30/21 - 11/29/21 [facility] Adult [address] [place] [address]- Allergies, Adverse Reactions, Alerts Substance Reaction Severity [...] 07/24/21 11:11:00 EDT, Route to Pharmacy Electronically, [facility] #[id number], Partial fill upon patient request if the prescription is for a... Start Date: 07/24/21 Status: Ordered duloxetine 60 mg oral enteric coated capsule 1 capsule, By Mouth, Daily, # 30 capsule, 5 Refills, 07/27/21 16:26:00 EDT, [facility] #[id number], 184.5, cm, 03/21/21 8:31:00 EST, Height Start Date: 07/27/21 Status: Ordered gabapentin 400 mg oral capsule 1, capsule, By Mouth, 3 times a day, # 270 capsule, Refills 0, Tot. Refills 0, Maintenance, 09/05/20 9:01:00 EDT, [facility][id number], 184.5, cm, 08/15/20 13:20:00 EDT, Height Start Date: 09/05/20 Status: Ordered gabapentin 400 mg oral capsule See Instructions, TAKE 1 CAPSULE BY MOUTH THREE TIMES DAILY, # 270 capsule, Refills 1, Tot. Refills1, 07/27/21 17:31:00 EDT, Instructions Replace Required Details, Route to Pharmacy Electronically, [facility] #[id number], 184.5, cm, 03/21/21 8:3... Start Date: 07/27/21 Status: Ordered tamsulosin 0.4 mg oral capsule 1, capsule, By Mouth, Daily, # 90 capsule, Refills 0, Tot. Refills 0, Maintenance, 08/15/21 13:42:00 EDT, Route to Pharmacy Electronically, [facility] #[id number], 184.5, cm, 03/21/21 8:31:00 EST, Height Start [...] Name: Rehan FLOREZ, Nazario Jensen Address: Address: [address] [place] [id number]
--- OUTSIDE RECORDS SUMMARY | 2022-05-19 20:31 | XMS_ITS | Continuity of Care Document ---
Author Name Unknown Organization [facility] Address [address] [place] [address]- Care Team Providers Care Chief Clerk Shelter Name Role Phone Rehan FLOREZ, Nazario Jensen Primary Care Physician Encounter [facility] [place] Date(s): 09/22/20 - 10/22/20 [facility] Adult [address] [place] [address]- Allergies, Adverse Reactions, Alerts Substance Reaction Severity [...] capsule, 5 Refills, Maintenance, 05/30/20 12:58:00 EDT, [facility] #[id number], 184.5, cm, 05/09/20 9:04:00 EDT, Height Start Date: 05/30/20 Status: Ordered gabapentin 400 mg oral capsule 1, capsule, By Mouth, 3 times a day, # 270 capsule, Refills 0, Tot. Refills 0, Maintenance, 09/05/20 9:01:00 EDT, Route to Pharmacy Electronically, [facility] #53813, 184.5, cm, 08/15/20 13:20:00 EDT, Height Start Date: 09/05/20 Status: Ordered tamsulosin 0.4 mg oral capsule 1, capsule, By Mouth, Daily, # 30 capsule, Refills 5, Tot. Refills 5, Maintenance, 05/29/20 21:04:00 EDT, Route to Pharmacy Electronically, [facility] #[id number], 184.5, cm, 05/09/20 9:04:00 EDT, Height Start Date: 05/29/20 Status: Ordered tiZANidine 2 mg oral tablet 2 mg, 1, tablet, By Mouth, Every 8 hours, # 42 tablet, Refills 0, Tot. Refills 0, Maintenance, 07/14/20 21:10:00 EDT, Route to Pharmacy Electronically, [facility] #23049, Partial fill upon patient request if the prescription is for a schedul... Start Date: 07/14/20 Status: Ordered venlafaxine 150 mg oral capsule, extended release 150 mg, 1, capsule, By Mouth, Daily, # 90 capsule, Refills 1, Tot. Refills 1, Maintenance, 05/31/2111:59:00 EDT, Route to Pharmacy Electronically, [facility] #[id number], 184.5, cm, 05/09/20 9:04:00 EDT, Height Start [...]
--- OUTSIDE RECORDS SUMMARY | 2022-05-19 20:31 | XMS_ITS | Continuity of Care Document ---
Author Name Unknown Organization [facility] Address [address] [address]- Care Team Providers Care Switchboard Operator Supervisor Name Role Phone Rehan FLOREZ, Nazario Jensen Primary Care Physician Encounter [facility] [place] Date(s): 09/26/20 - 10/26/20 [facility] [address] [place] [id number] Attending Physician: Scott Hercules Admitting Physician: AdmScott ogden Referring Physician: [id number] Allergies, Adverse Reactions, Alerts Substance Reaction Severity [...] capsule, 5 Refills, Maintenance, 05/30/20 12:58:00 EDT, [facility] #[id number], 184.5, cm, 05/09/20 9:04:00 EDT, Height Start Date: 05/30/20 Status: Ordered gabapentin 400 mg oral capsule 1, capsule, By Mouth, 3 times a day, # 270 capsule, Refills 0, Tot. Refills 0, Maintenance, 09/05/20 9:01:00 EDT, Route to Pharmacy Electronically, [facility] #[id number], 184.5, cm, 08/15/20 13:20:00 EDT, Height Start Date: 09/05/20 Status: Ordered tamsulosin 0.4 mg oral capsule 1, capsule, By Mouth, Daily, # 30 capsule, Refills 5, Tot. Refills 5, Maintenance, 05/29/20 21:04:00 EDT, Route to Pharmacy Electronically, [facility] #[id number], 184.5, cm, 05/09/20 9:04:00 EDT, Height Start Date: 05/29/20 Status: Ordered tiZANidine 2 mg oral tablet 2 mg, 1, tablet, By Mouth, Every 8 hours, # 42 tablet, Refills 0, Tot. Refills 0, Maintenance, 07/14/20 21:10:00 EDT, Route to Pharmacy Electronically, [facility] #[id number], Partial fill upon patient request if the prescription is for a schedul... Start Date: 07/14/20 Status: Ordered venlafaxine 150 mg oral capsule, extended release 150 mg, 1, capsule, By Mouth, Daily, # 90 capsule, Refills 1, Tot. Refills 1, Maintenance, 05/31/2111:59:00 EDT, Route to Pharmacy Electronically, [facility] #[id number], 184.5, cm, 05/09/20 9:04:00 EDT, Height Start [...]
--- OUTSIDE RECORDS SUMMARY | 2022-05-19 20:31 | XMS_ITS | Continuity of Care Document ---
Author Name Unknown Organization [facility] Address [address] [place] [address]- Care Team Providers Care A R Specialist Name Role Phone Rehan FLOREZ, Nazario Jensen Primary Care Physician [phone] [place] [facility] [place](s): 06/07/20 - 07/07/20 [facility] Adult [address] [place] [address]- Allergies, Adverse Reactions, Alerts Substance Reaction Severity [...] capsule, 5 Refills, Maintenance, 05/30/20 12:58:00 EDT, [facility] #[id number], 184.5, cm, 05/09/20 9:04:00 EDT, Height Start Date: 05/30/20 Status: Ordered gabapentin 400 mg oral capsule See Instructions, TAKE 1 CAPSULE BY MOUTH THREE TIMES DAILY, # 270 capsule, Refills 1, Tot. Refills1, 03/04/20 16:23:00 EST, Instructions Replace Required Details, Route to Pharmacy Electronically, [facility] #[id number], 184.5, cm, 12/30/19 13:... Start Date: 03/04/20 Status: Ordered hydrOXYzine hydrochloride 50 mg oral tablet 1 tablet = 50 mg, By Mouth, 3 times a day, # 90 tablet, 2 Refills, Maintenance, 04/15/20 10:18:00 EST, [facility] #[id number], Partial fill upon patient request if the prescription is for a schedule II opioid drug., 184.5, cm, 04/15/20 9:27:00 ES... Start Date: 04/15/20 Status: Ordered tamsulosin 0.4 mg oral capsule 1, capsule, By Mouth, Daily, # 30 capsule, Refills 5, Tot. Refills 5, Maintenance, 05/29/20 21:04:00 EDT, Route to Pharmacy Electronically, [facility] #[id number], 184.5, cm, 05/09/20 9:04:00 EDT, Height Start Date: 05/29/20 Status: Ordered venlafaxine 150 mg oral capsule, extended release 150 mg, 1, capsule, By Mouth, Daily, # 90 capsule, Refills 1, Tot. Refills 1, Maintenance, 05/31/2111:59:00 EDT, Route to Pharmacy Electronically, [facility] #[id number], 184.5, cm, 05/09/20 9:04:00 EDT, Height Start [...]
--- OUTSIDE RECORDS SUMMARY | 2022-05-19 20:31 | XMS_ITS | Continuity of Care Document ---
Author Name Unknown Organization [facility] Address [address] [place] [address]- Care Team Providers Care Corridor Redevelopment Manager Name Role Phone Rehan FLOREZ, Nazario Jensen Primary Care Physician [place] [facility] [place] - 03/22/22 [facility] Adult [address] [place] [address]- Attending Physician: Admalin, Bobby8 Admitting Physician: AdmtrScott [...] 07/24/21 11:11:00 EDT, Route to Pharmacy Electronically, [facility] #[id number], Partial fill upon patient request if the prescription is for a... Start Date: 07/24/21 Status: Ordered duloxetine 60 mg oral enteric coated capsule 1 capsule, By Mouth, Daily, # 30 capsule, 5 Refills, 07/27/21 16:26:00 EDT, [facility] #[id number], 184.5, cm, 03/21/21 8:31:00 EST, Height Start Date: 07/27/21 Status: Ordered gabapentin 400 mg oral capsule 1, capsule, By Mouth, 3 times a day, # 270 capsule, Refills 0, Tot. Refills 0, Maintenance, 09/05/20 9:01:00 EDT, [id number], 184.5, cm, 08/15/20 13:20:00 EDT, Height Start Date: 09/05/20 Status: Ordered gabapentin 400 mg oral capsule See Instructions, TAKE 1 CAPSULE BY MOUTH THREE TIMES DAILY, # 270 capsule, Refills 1, Tot. Refills1, 07/27/21 17:31:00 EDT, Instructions Replace Required Details, Route to Pharmacy Electronically, [facility] #[id number], 184.5, cm, 03/21/21 8:3... Start Date: 07/27/21 Status: Ordered tamsulosin 0.4 mg oral capsule 1, capsule, By Mouth, Daily, # 90 capsule, Refills 0, Tot. Refills 0, Maintenance, 08/15/21 13:42:00 EDT, Route to Pharmacy Electronically, [facility] #[id number], 184.5, cm, 03/21/21 8:31:00 EST, Height Start [...] gaye fox entered on: 05/06/15 Sex Male EKG study * Event Display: EKG Authored Date: Note * Event Display: X-Ray Chest, Non- BH Authored Date: Patient Care team information Care Team Personnel Name: Miranda Cuevas Position: [facility] RN Member Role: Primary Care Nurse Name: Gabrielle Giles Position: [facility] RN Member Role: Primary Care Nurse Name: Nazario Mayer MD Position: [facility] Primary Care Physician Member Role: PCP Address: Address: [address] [place] [address]- Care Team Related Persons Name: SHALOM DOLAN Address: [address] [address] Name: WILLOW JOVEL Address: home [address] [place] [address] Name: RODNEY JAMES Address: home [address] [place] [address]
--- OUTSIDE RECORDS SUMMARY | 2022-05-19 20:31 | XMS_ITS | Continuity of Care Document ---
Author Name Unknown Organization [facility] Address [address] [place] [address]- Care Team Providers Care Manager French Name Role Phone Rehan FLOREZ, Nazario Jensen Primary Care Physician Encounter [facility] [place] Date(s): 12/29/19 - 01/29/20 [facility] Adult [address] [place] [address]- Encounter Diagnosis Back pain(Discharge Diagnosis) - 12/30/19 Attending Physician: Thi Massey NP Allergies, Adverse Reactions, Alerts Substance Reaction Severity [...] capsule, 0 Refills, Maintenance, 01/28/20 12:26:00 EST, [facility] #[id number], 184.5, cm, 12/30/19 13:17:00 EST, Height Start Date: 01/28/20 Status: Ordered gabapentin 400 mg oral capsule 1, capsule, By Mouth, 3 times a day, # 90 capsule, Refills 0, Tot. Refills 0, Maintenance, 10/20/2011:40:00 EDT, Route to Pharmacy Electronically, [facility] #[id number], 184.5, cm, 10/15/19 8:16:00 EDT, Height Start Date: 10/20/19 Status: Ordered gabapentin 400 mg oral capsule See Instructions, TAKE 1 CAPSULE BY MOUTH THREE TIMES DAILY, # 90 capsule, Refills 0, Maintenance, Instructions Replace Required Details, Route to Pharmacy Electronically, [facility] #[id number], 184.5, cm, 12/30/19 13:17:00 EST, Height Start Date: 01/28/20 Status: Ordered tamsulosin 0.4 mg oral capsule 0.4 mg, 1, capsule, By Mouth, Daily, # 30 capsule, Refills 5, Tot. Refills 5, Maintenance, 10/19/2011:42:00 EDT, Route to Pharmacy Electronically, [facility] #52545, 184.5, cm, 10/15/19 8:16:00 EDT, Height Start Date: 10/19/19 Status: Ordered tiZANidine 4 mg oral capsule 1 capsule = 4 mg, By Mouth, 3 times a day, # 42 capsule, 0 Refills, Maintenance, 01/28/20 12:25:00 EST, Capsule, [facility] #[id number], 184.5, cm, 12/30/19 13:17:00 EST, Height Start Date: 01/28/20 Status: Ordered traMADol 50 mg oral tablet 1 tablet = 50 mg, By Mouth, Every 6 hours, PRN as needed for pain, # 24 tablet, 0 Refills, Maintenance, 12/30/19 14:09:00 EST, Tablet, [facility] #32385, 184.5, cm, 12/30/19 13:17:00 EST, Height Start Date: 12/30/19 Status: Ordered venlafaxine 150 mg oral capsule, extended release 150 mg, 1, capsule, By Mouth, Daily, # 90 capsule, Refills 1, Tot. Refills 1, Maintenance, :07:00 EST, Route to Pharmacy Electronically, [facility] #[id number], 184.5, cm, 10/15/19 8:16:00 EDT, Height Start [...] Active Tobacco use(Confirmed) Active Umbilical hernia(Confirmed) Active Diagnosis Diagnosis Type Effective Dates Health Status Clini renetta Service Informant Back pain Discharge Diagnosis 12/30/19 Vital Signs Most recent to oldest [Reference Range]: 1 Height 184.5 cm (12/30/19 1:17 PM) Social History Social History Type Response Smoking Status Current every day gaye fox entered on: 05/06/15 Sex Male
--- OUTSIDE RECORDS SUMMARY | 2022-05-19 20:31 | XMS_ITS | Continuity of Care Document ---
Author Name Unknown Organization [facility] Address [address] [place] [address]- Care Team Providers Care Marketing Proposal Coordinator Name Role Phone Nazario Van MD Primary [facility] Phys[id number] - 03/18/19 [facility] Adult [address] [place] [address]- [facility] Attending Physician: Nazario Van MD Allergies, Adverse Reactions, Alerts Substance Reaction Severity Status ibuprofen Stomach upset Active NSAIDs 1 Active 1stomach ulcers Immunizations Given and Recorded Vaccine Date Status Refusal Reason tetanus/diphtheria/pertussis, acel(Tdap) 02/19/16 Recorded pneumococcal 23-valent vaccine 02/03/16 Recorded Not Given Vaccine Date Status Refusal Reason Influenza Virus Vaccine (oldterm) 05/16/18 Not Giv en Patient Refuses Medications duloxetine 60 mg oral enteric coated capsule See Instructions, TAKE 1 CAPSULE BY MOUTH DAILY, # 30 capsule, 5 Refills, Soft Stop, 02/09/19 9:21:00 EST, [facility] #[id number], 184.5, cm, 08/07/18 11:41:00 EDT, Height Start Date: 02/09/19 Status: Ordered gabapentin 400 mg oral capsule 1, capsule, By Mouth, 3 times a day, # 90 capsule, Refills 5, Tot. Refills 5, Maintenance, :34:52 EST, Instructions Replace Required Details, Print Requisition, Dry Weight Start Date: 02/02/19 Status: Ordered venlafaxine 75 mg oral capsule, extended release 75 mg, 1, capsule, By Mouth, Daily, # 30 capsule, Refills 5, Tot. Refills 5, Maintenance, 08/07/18 12:04:42 EDT, Route to Pharmacy Electronically, [id number], [facility] [id number] Start Date: 08/07/18 Status: Ordered Problem List Condition Effective Dates [...]
--- OUTSIDE RECORDS SUMMARY | 2022-05-19 20:31 | XMS_ITS | Continuity of Care Document ---
Author Name Unknown Organization [facility] Venkata lt Address [address] [place] [address]- Care Team Providers Care Bleach Liquor Maker Name Role Phone Rehan FLOREZ, Nazario Jensen Primary Care Physician Encounter [facility] [place] Date(s): 08/17/21 - 09/16/21 [facility] Adult [address] [place] [address]- Attending Physician: Admalin, Bobby8 Admitting Physician: Admtr, Ar8 Referring Physician: Admtr, Ar8 Allergies, Adverse Reactions, [...] 07/24/21 11:11:00 EDT, Route to Pharmacy Electronically, [facility] #[id number], Partial fill upon patient request if the prescription is for a... Start Date: 07/24/21 Status: Ordered duloxetine 60 mg oral enteric coated capsule 1 capsule, By Mouth, Daily, # 30 capsule, 5 Refills, 07/27/21 16:26:00 EDT, [facility] #[id number], 184.5, cm, 03/21/21 8:31:00 EST, Height Start Date: 07/27/21 Status: Ordered gabapentin 400 mg oral capsule 1, capsule, By Mouth, 3 times a day, # 270 capsule, Refills 0, Tot. Refills 0, Maintenance, 09/05/20 9:01:00 EDT, Route to Pharmacy Electronically, [facility] #[id number], 184.5, cm, 08/15/20 13:20:00 EDT, Height Start Date: 09/05/20 Status: Ordered gabapentin 400 mg oral capsule See Instructions, TAKE 1 CAPSULE BY MOUTH THREE TIMES DAILY, # 270 capsule, Refills 1, Tot. Refills1, 07/27/21 17:31:00 EDT, Instructions Replace Required Details, Route to Pharmacy Electronically, [facility] #[id number], 184.5, cm, 03/21/21 8:3... Start Date: 07/27/21 Status: Ordered tamsulosin 0.4 mg oral capsule 1, capsule, By Mouth, Daily, # 90 capsule, Refills 0, Tot. Refills 0, Maintenance, 08/15/21 13:42:00 EDT, Route to Pharmacy Electronically, [facility] #[id number], 184.5, cm, 03/21/21 8:31:00 EST, Height Start [...]
--- OUTSIDE RECORDS SUMMARY | 2022-05-19 20:31 | XMS_ITS | Continuity of Care Document ---
Author Name Unknown Organization [facility] Venkata lt Address [address] [place] [address]- Care Team Providers Care Director Of Valuation Name Role Phone Rehan FLOREZ, Nazario Jensen Primary Care Physician [place] [facility] [place]14/19 [facility] Adult [address] [place] [address]- [facility] Attending Physician: Admtr, Ar8 Admitting Physician: Admtr, Ar8 Referring Physician: Admtr, [...] Daily, # 30 capsule, 0 Refills, Maintenance, 10/29/19 8:17:00 EDT, [facility] #[id number], 184.5, cm, 10/15/19 8:16:00 EDT, Height Start Date: 10/29/19 Status: Ordered gabapentin 400 mg oral capsule 1, capsule, By Mouth, 3 times a day, # 90 capsule, Refills 0, Tot. Refills 0, Maintenance, 10/20/2011:40:00 EDT, Route to Pharmacy Electronically, [facility] #[id number], 184.5, cm, 10/15/19 8:16:00 EDT, Height Start Date: 10/20/19 Status: Ordered tamsulosin 0.4 mg oral capsule 0.4 mg, 1, capsule, By Mouth, Daily, # 30 capsule, Refills 5, Tot. Refills 5, Maintenance, 10/19/2011:42:00 EDT, Route to Pharmacy Electronically, [facility] #62863, 184.5, cm, 10/15/19 8:16:00 EDT, Height Start Date: 10/19/19 Status: Ordered tiZANidine 4 mg oral capsule 1 capsule = 4 mg, By Mouth, 3 times a day, # 42 capsule, 0 Refills, Maintenance, 10/15/19 10:28:00 EDT, Capsule, [facility] #53224, 184.5, cm, 10/15/19 8:16:00 EDT, Height Start Date: 10/15/19 Status: Ordered venlafaxine 150 mg oral capsule, extended release 150 mg, 1, capsule, By Mouth, Daily, # 90 capsule, Refills 1, Tot. Refills 1, Maintenance, 06/28/2012:34:00 EDT, Route to Pharmacy Electronically, [facility] #[id number], 184.5, cm, 06/29/19 12:56:00 EDT, Height Start [...]
--- OUTSIDE RECORDS SUMMARY | 2022-05-19 20:31 | XMS_ITS | Continuity of Care Document ---
Author Name Unknown Organization [facility] Venkata lt Address [address] [place] [address]- Care Team Providers Care Car Shifter Name Role Phone Rehan FLOREZ, Nazario Jensen Primary Care Physician [place] [facility] [place](s[place] 03/26/22 - 04/25/22 [facility] Adult [address] [place] [address]- Allergies, Adverse Reactions, Alerts Substance Reaction Severity [...] Stop 09/22/22 17:51:00 EDT, 03/26/22 17:51:00 EST, [facility] #[id number], 184.5, cm, 02/20/22 9:16:00 EST, Height Start Date: 03/26/22 Stop Date: 09/22/22 Status: Ordered gabapentin 400 mg oral capsule See Instructions, TAKE 1 CAPSULE BY MOUTH THREE TIMES DAILY, # 270 capsule, Refills 1, Tot. Refills1, 07/27/21 17:31:00 EDT, Instructions Replace Required Details, Route to Pharmacy Electronically, [facility] #25367, 184.5, cm, 03/21/21 8:3... Start Date: 07/27/21 Status: Ordered tamsulosin 0.4 mg oral capsule 0.4 mg, 1, capsule, By Mouth, Daily at bedtime, # 30 capsule, Refills 5, Tot. Refills 5, Maintenance, 04/16/22 15:56:00 EST, Route to Pharmacy Electronically, [facility] #44506, Partial fill upon patient request if the [...] Care Team Personnel Name: Miranda Cuevas Position: [facility] RN Member Role: Primary Care Nurse Name: Gabrielle Giles Position: [facility] RN Member Role: Primary Care Nurse Name: Nazario Mayer MD Position: [facility] Primary Care Physician Member Role: PCP Address: Address: [address] [place] [address]- Care Team Related Persons Name: SHALOM DOLAN Address: [address] [address] Name: WILLOW JOVEL Address: home [address] [place] [address] Name: RODNEY JAMES Address: home [address] [place] [address]
--- OUTSIDE RECORDS SUMMARY | 2022-05-19 20:31 | XMS_ITS | Continuity of Care Document ---
Author Name Unknown Organization [facility] Venkata lt Address [address] [place] [address]- Care Team Providers Care Cloth Shearing Supervisor Name Role Phone Rehan FLOREZ, Nazario Jensen Primary Care Physician [phone] Encounter [facility] [place] Date(s): 02/16/19 - 02/26/19 [facility] [address] [place] [address]- [facility] Attending Physician: Scott Hercules Admitting Physician: AdmScott [...] 5 Refills, Soft Stop, 02/09/19 9:21:00 EST, [facility] #[id number], 184.5, cm, 08/07/18 11:41:00 EDT, Height Start [...] 08/07/18 12:04:42 EDT, Route to Pharmacy Electronically, [id number], [facility] [id number] Start Date: 08/07/18 Status: Ordered Problem List [...]
--- OUTSIDE RECORDS SUMMARY | 2022-05-19 20:31 | XMS_ITS | Continuity of Care Document ---
Author Name Unknown Organization [facility] Venkata lt Address [address] [place] [address]- Care Team Providers Care Rn Mds Name Role Phone Rehan FLOREZ, Nazario Jensen Primary Care Physician [phone] Encounter [facility] [place] Date(s): 03/26/22 - 04/25/22 [facility] Adult [address] [place] [address]- Allergies, Adverse Reactions, Alerts Substance Reaction Severity [...] Stop 09/22/22 17:51:00 EDT, 03/26/22 17:51:00 EST, [facility] #05555, 184.5, cm, 02/20/22 9:16:00 EST, Height Start Date: 03/26/22 Stop Date: 09/22/22 Status: Ordered gabapentin 400 mg oral capsule See Instructions, TAKE 1 CAPSULE BY MOUTH THREE TIMES DAILY, # 270 capsule, Refills 1, Tot. Refills1, 07/27/21 17:31:00 EDT, Instructions Replace Required Details, Route to Pharmacy Electronically, [facility] #57883, 184.5, cm, 03/21/21 8:3... Start Date: 07/27/21 Status: Ordered tamsulosin 0.4 mg oral capsule 0.4 mg, 1, capsule, By Mouth, Daily at bedtime, # 30 capsule, Refills 5, Tot. Refills 5, Maintenance, 04/16/22 15:56:00 EST, Route to Pharmacy Electronically, [facility] #21800, Partial fill upon patient request if the [...] day dominique entered on: 05/06/15 Sex Male Patient Care team information Care Team Personnel Name: Miranda Cuevas Position: [facility] RN Member Role: Primary Care Nurse Name: Gabrielle Giles Position: [facility] RN Member Role: Primary Care Nurse Name: Nazario Mayer MD Position: [facility] Primary Care Physician Member Role: PCP Address: Address: [address] [place] [address]- Care Team Related Persons Name: SHALOM DOLAN Address: [address] [address] Name: WILLOW JOVEL Address: home [address] [place] [address] Name: RODNEY JAMES Address: home [address] [place] [address]
--- OUTSIDE RECORDS SUMMARY | 2022-05-19 20:31 | XMS_ITS | Continuity of Care Document ---
Author Name Unknown Organization [facility] ter Address [address] [place] [address]- Care Team Providers Care Perinatal Coordinator Name Role Phone Nazario Mayer MD Primary Care Physician [place] [facility] [place] 11/22/20 - 01/07/[address] [address] Attending Physician: Nazario Mayer MD Admitting Physician: [...] Mouth, Daily, # 30 capsule, 0 Refills, [facility] #[id number], 184.5, cm, 12/15/20 12:14:00 EDT, Height Start Date: 01/03/21 Status: Ordered gabapentin 400 mg oral capsule See Instructions, TAKE 1 CAPSULE BY MOUTH THREE TIMES DAILY, # 270 capsule, Refills 0, InstructionsReplace Required Details, Route to Pharmacy Electronically, [facility] #[id number], 184.5, cm,12/15/20 12:14:00 EDT, Height Start Date: 12/15/20 Status: Ordered gabapentin 400 mg oral capsule 1, capsule, By Mouth, 3 times a day, # 270 capsule, Refills 0, Tot. Refills 0, Maintenance, 09/05/20 9:01:00 EDT, Route to Pharmacy Electronically, [facility] #19701, 184.5, cm, 08/15/20 13:20:00 EDT, Height Start Date: 09/05/20 Status: Ordered tamsulosin 0.4 mg oral capsule 1, capsule, By Mouth, Daily, # 90 capsule, Refills 0, Route to Pharmacy Electronically, [facility] #25314, 184.5, cm, 12/15/20 12:14:00 EDT, Height Start Date: 12/15/20 Status: Ordered venlafaxine 150 mg oral capsule, extended release 1 capsule, By Mouth, Daily, # 90 capsule, 1 Refills, [facility] #91234, 184.5, cm, 08/15/20 13:20:00 EDT, Height Start [...]
--- OUTSIDE RECORDS SUMMARY | 2022-05-19 20:31 | XMS_ITS | Continuity of Care Document ---
Author Name Unknown Organization [facility] Venkata lt Address [address] [place] [address]- Care Team Providers Care Stripping Shovel Oiler Name Role Phone Nazario Mayer MD Primary Care Physician [phone] Encounter [facility] Date(s): 05/19/21 - 09/16/21 [facility] Adult [address] [place] [address]- Attending Physician: Nazario Mayer MD Allergies, Adverse [...] 07/24/21 11:11:00 EDT, Route to Pharmacy Electronically, [facility] #[id number], Partial fill upon patient request if the prescription is for a... Start Date: 07/24/21 Status: Ordered duloxetine 60 mg oral enteric coated capsule 1 capsule, By Mouth, Daily, # 30 capsule, 5 Refills, 07/27/21 16:26:00 EDT, [id number], 184.5, cm, 03/21/21 8:31:00 EST, Height Start Date: 07/27/21 Status: Ordered gabapentin 400 mg oral capsule 1, capsule, By Mouth, 3 times a day, # 270 capsule, Refills 0, Tot. Refills 0, Maintenance, 09/05/20 9:01:00 EDT, Route to [facility] Electronically[facility][id number], 184.5, cm, 08/15/20 13:20:00 EDT, Height Start Date: 09/05/20 Status: Ordered gabapentin 400 mg oral capsule See Instructions, TAKE 1 CAPSULE BY MOUTH THREE TIMES DAILY, # 270 capsule, Refills 1, Tot. Refills1, 07/27/21 17:31:00 EDT, Instructions Replace Required Details, Route to Pharmacy Electronically, [facility] #[id number], 184.5, cm, 03/21/21 8:3... Start Date: 07/27/21 Status: Ordered tamsulosin 0.4 mg oral capsule 1, capsule, By Mouth, Daily, # 90 capsule, Refills 0, Tot. Refills 0, Maintenance, 08/15/21 13:42:00 EDT, Route to Pharmacy Electronically, [facility] #[id number], 184.5, cm, 03/21/21 8:31:00 EST, Height Start [...]
--- OUTSIDE RECORDS SUMMARY | 2022-05-19 20:31 | XMS_ITS | Continuity of Care Document ---
Author Name Unknown Organization [facility] Venkata lt Address [address] [place] [address]- Care Team Providers Care Industrial Tech Instructor Name Role Phone Rehan FLOREZ, Nazario Jensen Primary Care Physician Encounter [facility] Date(s): 10/31/21 - 11/30/21 [facility] Adult [address] [place] [address]- Allergies, Adverse Reactions, Alerts Substance Reaction Severity [...] 07/24/21 11:11:00 EDT, Route to Pharmacy Electronically, [facility] #[id number], Partial fill upon patient request if the prescription is for a... Start Date: 07/24/21 Status: Ordered duloxetine 60 mg oral enteric coated capsule 1 capsule, By Mouth, Daily, # 30 capsule, 5 Refills, 07/27/21 16:26:00 EDT, [facility] #[id number], 184.5, cm, 03/21/21 8:31:00 EST, Height Start Date: 07/27/21 Status: Ordered gabapentin 400 mg oral capsule 1, capsule, By Mouth, 3 times a day, # 270 capsule, Refills 0, Tot. Refills 0, Maintenance, 09/05/20 9:01:00 EDT, [facility][id number], 184.5, cm, 08/15/20 13:20:00 EDT, Height Start Date: 09/05/20 Status: Ordered gabapentin 400 mg oral capsule See Instructions, TAKE 1 CAPSULE BY MOUTH THREE TIMES DAILY, # 270 capsule, Refills 1, Tot. Refills1, 07/27/21 17:31:00 EDT, Instructions Replace Required Details, Route to Pharmacy Electronically, [facility] #[id number], 184.5, cm, 03/21/21 8:3... Start Date: 07/27/21 Status: Ordered tamsulosin 0.4 mg oral capsule 1, capsule, By Mouth, Daily, # 90 capsule, Refills 0, Tot. Refills 0, Maintenance, 08/15/21 13:42:00 EDT, Route to Pharmacy Electronically, [facility] #[id number], 184.5, cm, 03/21/21 8:31:00 EST, Height Start [...] Care team information Personnel Name: Rehan FLOREZ, aNzario Jensen Address: Address: [address] [place] [address]
--- OUTSIDE RECORDS SUMMARY | 2022-05-19 20:31 | XMS_ITS | Continuity of Care Document ---
Author Name Unknown Organization [facility] Venkata lt Address [address] [place] [address]- Care Team Providers Care Entry Level Business Analyst Name Role Phone Nazario Mayer MD Primary Care Physician [phone] Encounter [facility] [place] Date(s): 04/02/22 - 05/12/22 [facility] Adult [address] [place] [address]- Attending Physician: Nazario Mayer MD Allergies, Adverse [...] Stop 09/22/22 17:51:00 EDT, 03/26/22 17:51:00 EST, [facility] #[id number], 184.5, cm, 02/20/22 9:16:00 EST, Height Start Date: 03/26/22 Stop Date: 09/22/22 Status: Ordered gabapentin 400 mg oral capsule See Instructions, TAKE 1 CAPSULE BY MOUTH THREE TIMES DAILY, # 270 capsule, Refills 1, Tot. Refills1, 07/27/21 17:31:00 EDT, Instructions Replace Required Details, Route to Pharmacy Electronically, [facility] #[id number], 184.5, cm, 03/21/21 8:3... Start Date: 07/27/21 Status: Ordered tamsulosin 0.4 mg oral capsule 0.4 mg, 1, capsule, By Mouth, Daily at bedtime, # 30 capsule, Refills 5, Tot. Refills 5, Maintenance, 04/16/22 15:56:00 EST, Route to Pharmacy Electronically, [facility] #[id number], Partial fill upon patient request if the [...] Team Personnel Name: Miranda Cuevas Position: [facility] RN Member Role: Primary Care Nurse Name: Gabrielle Giles Position: [facility] RN Member Role: Primary Care Nurse Name: Nazario Mayer MD Position: [facility] Primary Care Physician Member Role: PCP Address: Address: [address] [place] [address]- Care Team Related Persons Name: SHALOM DOLAN Address: home [address] [address] Name: WILLOW JOVEL Address: home [address] [place] [address] Name: RODNEY JAMES Address: home [address] [place] [address]
--- OUTSIDE RECORDS SUMMARY | 2022-05-19 20:31 | XMS_ITS | Continuity of Care Document ---
Author Name Unknown Organization [facility] Venkata lt Address [address] [place] [address]- Care Team Providers Care Patient Placement Coordinator Name Role Phone Rehan FLOREZ, Nazario Jensen Primary Care Physician Encounter [facility] [place] Date(s): 11/22/20 - 12/22/20 [facility] Adult [address] [place] [address]- Allergies, Adverse Reactions, Alerts Substance Reaction Severity [...] capsule, 5 Refills, Maintenance, 05/30/20 12:58:00 EDT, [facility] #[id number], 184.5, cm, 05/09/20 9:04:00 EDT, Height Start Date: 05/30/20 Status: Ordered gabapentin 400 mg oral capsule See Instructions, TAKE 1 CAPSULE BY MOUTH THREE TIMES DAILY, # 270 capsule, Refills 0, InstructionsReplace Required Details, Route to Pharmacy Electronically, [facility] #[id number], 184.5, cm,12/15/20 12:14:00 EDT, Height Start Date: 12/15/20 Status: Ordered gabapentin 400 mg oral capsule 1, capsule, By Mouth, 3 times a day, # 270 capsule, Refills 0, Tot. Refills 0, Maintenance, 09/05/20 9:01:00 EDT, Route to Pharmacy Electronically, [facility] #[id number], 184.5, cm, 08/15/20 13:20:00 EDT, Height Start Date: 09/05/20 Status: Ordered tamsulosin 0.4 mg oral capsule 1, capsule, By Mouth, Daily, # 90 capsule, Refills 0, Route to Pharmacy Electronically, [facility] #49450, 184.5, cm, 12/15/20 12:14:00 EDT, Height Start Date: 12/15/20 Status: Ordered venlafaxine 150 mg oral capsule, extended release 1 capsule, By Mouth, Daily, # 90 capsule, 1 Refills, [facility] #67048, 184.5, cm, 08/15/20 13:20:00 EDT, Height Start [...]
--- OUTSIDE RECORDS SUMMARY | 2022-05-19 20:31 | XMS_ITS | Continuity of Care Document ---
Author Name Unknown Organization [facility] Venkata lt Address [address] [place] [address]- Care Team Providers Care Anthropologist Physical Name Role Phone Rehan FLOREZ, Nazario Jensen Primary Care Physician [phone] [place] [facility] [place] 05/10/20 - 06/09/20 [facility] Adult [address] [place] [address]- Allergies, Adverse Reactions, Alerts Substance Reaction Severity [...] capsule, 5 Refills, Maintenance, 05/30/20 12:58:00 EDT, [facility] #[id number], 184.5, cm, 05/09/20 9:04:00 EDT, Height Start Date: 05/30/20 Status: Ordered gabapentin 400 mg oral capsule See Instructions, TAKE 1 CAPSULE BY MOUTH THREE TIMES DAILY, # 270 capsule, Refills 1, Tot. Refills1, 03/04/20 16:23:00 EST, Instructions Replace Required Details, Route to Pharmacy Electronically, [facility] #[id number], 184.5, cm, 12/30/19 13:... Start Date: 03/04/20 Status: Ordered hydrOXYzine hydrochloride 50 mg oral tablet 1 tablet = 50 mg, By Mouth, 3 times a day, # 90 tablet, 2 Refills, Maintenance, 04/15/20 10:18:00 EST, [facility] #65481, Partial fill upon patient request if the prescription is for a schedule II opioid drug., 184.5, cm, 04/15/20 9:27:00 ES... Start Date: 04/15/20 Status: Ordered tamsulosin 0.4 mg oral capsule 1, capsule, By Mouth, Daily, # 30 capsule, Refills 5, Tot. Refills 5, Maintenance, 05/29/20 21:04:00 EDT, Route to Pharmacy Electronically, [facility] #42520, 184.5, cm, 05/09/20 9:04:00 EDT, Height Start Date: 05/29/20 Status: Ordered venlafaxine 150 mg oral capsule, extended release 150 mg, 1, capsule, By Mouth, Daily, # 90 capsule, Refills 1, Tot. Refills 1, Maintenance, 05/31/2111:59:00 EDT, Route to Pharmacy Electronically, [facility] #60149, 184.5, cm, 05/09/20 9:04:00 EDT, Height Start [...]
--- OUTSIDE RECORDS SUMMARY | 2022-05-19 20:31 | XMS_ITS | Continuity of Care Document ---
Author Name Unknown Organization [facility] Venkata lt Address [address] [place] [address]- Care Team Providers Care Chart Writer Name Role Phone Rehan FLOREZ, Nazario Jensen Primary Care Physician Encounter [facility] [place] Date(s): 03/04/20 - 04/03/20 [facility] Adult [address] [place] [address]- Allergies, Adverse Reactions, Alerts Substance Reaction Severity [...] DAILY, # 30 capsule, 0 Refills, Maintenance, [facility] #[id number], 184.5, cm, 03/17/20 7:53:00 EST, Height Start Date: 03/30/20 Status: Ordered gabapentin 400 mg oral capsule 1, capsule, By Mouth, 3 times a day, # 90 capsule, Refills 0, Tot. Refills 0, Maintenance, 10/20/2011:40:00 EDT, Route to Pharmacy Electronically, [facility] #[id number], 184.5, cm, 10/15/19 8:16:00 EDT, Height Start Date: 10/20/19 Status: Ordered gabapentin 400 mg oral capsule See Instructions, TAKE 1 CAPSULE BY MOUTH THREE TIMES DAILY, # 270 capsule, Refills 1, Tot. Refills1, 03/04/20 16:23:00 EST, Instructions Replace Required Details, [facility]60[facility], 184.5, cm, 12/30/19 13:... Start Date: 03/04/20 Status: Ordered tamsulosin 0.4 mg oral capsule 0.4 mg, 1, capsule, By Mouth, Daily, # 30 capsule, Refills 5, Tot. Refills 5, Maintenance, 10/19/2011:42:00 EDT, Route to Pharmacy Electronically, [facility] #55970, 184.5, cm, 10/15/19 8:16:00 EDT, Height Start Date: 10/19/19 Status: Ordered venlafaxine 150 mg oral capsule, extended release 150 mg, 1, capsule, By Mouth, Daily, # 90 capsule, Refills 1, Tot. Refills 1, Maintenance, :07:00 EST, [facility]35208, 184.5, cm, 10/15/19 8:16:00 EDT, Height Start [...]
--- OUTSIDE RECORDS SUMMARY | 2022-05-19 20:31 | XMS_ITS | Continuity of Care Document ---
Author Name Unknown Organization [facility] Venkata lt Address [address] [place] [address]- Care Team Providers Care Foreign Correspondent Name Role Phone Rehan FLOREZ, Nazario Jensen Primary Care Physician Encounter [facility] [place] Date(s): 02/21/21 - 03/23/21 [facility] Adult [address] [place] [address]- Allergies, Adverse Reactions, Alerts Substance Reaction Severity [...] 03/21/21 10:18:00 EST, Route to Pharmacy Electronically, [facility] #[id number], Partial fill upon patient request if the prescription is for a... Start Date: 03/21/21 Status: Ordered duloxetine 60 mg oral enteric coated capsule 1 capsule, By Mouth, Daily, # 30 capsule, 5 Refills, 02/22/21 11:47:00 EST, [facility] #[id number], 184.5, cm, 12/15/20 12:14:00 EDT, Height Start Date: 02/22/21 Status: Ordered gabapentin 400 mg oral capsule See Instructions, TAKE 1 CAPSULE BY MOUTH THREE TIMES DAILY, # 270 capsule, Refills 0, InstructionsReplace Required Details, Route to Pharmacy Electronically, [facility] #67087, 184.5, cm,12/15/20 12:14:00 EDT, Height Start Date: 12/15/20 Status: Ordered gabapentin 400 mg oral capsule 1, capsule, By Mouth, 3 times a day, # 270 capsule, Refills 0, Tot. Refills 0, Maintenance, 09/05/20 9:01:00 EDT, Route to Pharmacy Electronically, [facility] #24350, 184.5, cm, 08/15/20 13:20:00 EDT, Height Start Date: 09/05/20 Status: Ordered tamsulosin 0.4 mg oral capsule 1, capsule, By Mouth, Daily, # 90 capsule, Refills 0, Route to Pharmacy Electronically, [facility] #[id number], 184.5, cm, 12/15/20 12:14:00 EDT, Height Start [...]
--- OUTSIDE RECORDS SUMMARY | 2022-05-19 20:31 | XMS_ITS | Continuity of Care Document ---
Author Name Unknown Organization [facility] Venkata lt Address [address] [place] [address]- Care Team Providers Care Bindery Operator Name Role Phone Rehan FLOREZ, Nazario Jensen Primary Care Physician [phone] Encounter [facility] Date(s): 11/02/21 - 12/02/21 [facility] Adult [address] [place] [address]- Allergies, Adverse Reactions, Alerts Substance Reaction Severity [...] 07/24/21 11:11:00 EDT, Route to Pharmacy Electronically, [facility] #[id number], Partial fill upon patient request if the prescription is for a... Start Date: 07/24/21 Status: Ordered duloxetine 60 mg oral enteric coated capsule 1 capsule, By Mouth, Daily, # 30 capsule, 5 Refills, 07/27/21 16:26:00 EDT, [facility] #[id number], 184.5, cm, 03/21/21 8:31:00 EST, Height Start Date: 07/27/21 Status: Ordered gabapentin 400 mg oral capsule 1, capsule, By Mouth, 3 times a day, # 270 capsule, Refills 0, Tot. Refills 0, Maintenance, 09/05/20 9:01:00 EDT, [id number], 184.5, cm, 08/15/20 13:20:00 EDT, Height Start Date: 09/05/20 Status: Ordered gabapentin 400 mg oral capsule See Instructions, TAKE 1 CAPSULE BY MOUTH THREE TIMES DAILY, # 270 capsule, Refills 1, Tot. Refills1, 07/27/21 17:31:00 EDT, Instructions Replace Required Details, Route to Pharmacy Electronically, [facility] #[id number], 184.5, cm, 03/21/21 8:3... Start Date: 07/27/21 Status: Ordered tamsulosin 0.4 mg oral capsule 1, capsule, By Mouth, Daily, # 90 capsule, Refills 0, Tot. Refills 0, Maintenance, 08/15/21 13:42:00 EDT, Route to Pharmacy Electronically, [facility] #[id number], 184.5, cm, 03/21/21 8:31:00 EST, Height Start [...] Name: Rehan FLOREZ, Nazario Jensen Address: Address: [address] [place] [id number]
--- OUTSIDE RECORDS SUMMARY | 2022-05-19 20:31 | XMS_ITS | Continuity of Care Document ---
Author Name Unknown Organization [facility] Venkata lt Address [address] [place] [address]- Care Team Providers Care Director Blood Bank Name Role Phone Nazario Van MD Primary Care Physician [id number] Date(s[facility] 10/15/19 - 10/22/19 [facility] Adult [address] [place] [address]- [facility] Attending Physician: Nazario Van MD [...] 5 Refills, Soft Stop, 02/09/19 9:21:00 EST, [facility] #[id number], 184.5, cm, 08/07/18 11:41:00 EDT, Height Start Date: 02/09/19 Status: Ordered gabapentin 400 mg oral capsule 1, capsule, By Mouth, 3 times a day, # 90 capsule, Refills 0, Tot. Refills 0, Maintenance, 10/20/2011:40:00 EDT, Route to Pharmacy Electronically, [facility] #[id number], 184.5, cm, 10/15/19 8:16:00 EDT, Height Start Date: 10/20/19 Status: Ordered tamsulosin 0.4 mg oral capsule 0.4 mg, 1, capsule, By Mouth, Daily, # 30 capsule, Refills 5, Tot. Refills 5, Maintenance, 10/19/2011:42:00 EDT, Route to Pharmacy Electronically, [facility] #[id number], 184.5, cm, 10/15/19 8:16:00 EDT, Height Start Date: 10/19/19 Status: Ordered tiZANidine 4 mg oral capsule 1 capsule = 4 mg, By Mouth, 3 times a day, # 42 capsule, 0 Refills, Maintenance, 10/15/19 10:28:00 EDT, Capsule, [facility] #[id number], 184.5, cm, 10/15/19 8:16:00 EDT, Height Start Date: 10/15/19 Status: Ordered venlafaxine 150 mg oral capsule, extended release 150 mg, 1, capsule, By Mouth, Daily, # 90 capsule, Refills 1, Tot. Refills 1, Maintenance, 06/28/2012:34:00 EDT, Route to Pharmacy Electronically, [facility] #[id number], 184.5, cm, 06/29/19 12:56:00 EDT, Height Start [...] oldest [Reference Range]: 1 Height 184.5 cm (10/15/19 8:16 AM) Social History Social History Type Response Smoking Status Current every day gaye fox entered on: 05/06/15 Sex
--- NOTE | 2022-05-19 21:25 | ED_ITS ---
HPI - Syncope General Chief Complaint: Syncope Stated Complaint: Syncopal episode Time Seen by Provider: 05/19/22 19:16 History of Present Illness HPI narrative: Liliana is a 62-year-old male had a syncopal episode. Patient was at a birthday constitution party at 1 alcoholic drink smokes some marijuana but trying to go the bathroom and subsequently felt very lightheaded and had a true syncopal episode. No chest pain. No shortness of breath. Related Data Allergies Allergy/AdvReac Type Severity Reaction Status Date / Time NSAIDS (Non-Steroidal AdvReac Gastrointestinal Verified 08/04/21 20:28 Anti-Inflamma Upset Review of Systems Review of Systems: No fever no chills no diaphoresis Yes all other systems are reviewed and are negative [facility] Past Medical History Attestation statement: The following information was validated with the patient. Medical History Alcohol intoxication Social History Social History Alcohol intake: current Alcohol type: beer Smoked in Last 30 Days: Yes Use of substances other than those prescribed or required for medical reasons: Yes Substance Use Type: Marijuana Substance Use Frequency: Chronic Longstanding Last Used Substance: Just Prior to Admission Any prior treatment program specific to substance use: No Advance Directives: No Advance Directives Information Provided: Yes Physical Exam Vital Signs: Vital Signs: Last Vital Signs Temp 97.9 F 05/19/22 19:01 Pulse 88 05/19/22 19:01 Resp 16 05/19/22 19:01 BP 109/75 05/19/22 19:01 Pulse Ox 95 05/19/22 19:01 O2 Del Method Room Air 05/19/22 19:01 BMI result Body Mass Index 24.3 Appearance: Alert. Oriented X3. No acute distress. Eyes: Pupils equal, round and reactive to light. ENT: Pharynx normal. Neck: Normal inspection. Neck supple. No lymph nodes noted. No crepitus CVS: Normal heart rate and rhythm. Pulses normal. Normal S1 and S2 Respiratory: No respiratory distress. Breath sounds normal. No Wheezing. No rales Abdomen: Soft and nontender. No rigidity. No distention. good BS x4 Skin: Skin warm and dry. Normal skin color. Normal skin turgor. Extremities: No lower extremity edema. Neurovascular intact to all extremities. No Lacerations. No Rash Neuro: Oriented X 3. No motor deficit. No sensory deficit. Moving all extermities. No slurred speech Medications Administered Discontinued Medications Generic Name Dose Route Start Last Admin Trade Name Boboq PRN Reason Stop Dose Admin Sodium Chloride 1,000 mls @ 999 mls/hr 05/19/22 21:30 05/19/22 22:57 Ns IV 05/19/22 22:30 Infused .Q1H1M MITESH Infusion Medical Decision Making Medical Decision Making [facility] Narrative: Patient had a drink subsequently felt lightheaded. And had syncopal episode. Symptoms consistent with having vasovagal syncope. Patient well-appearing. No neck pain. Neurologically intact. No distress. Troponin was negative. Patient has 2 sets of enzymes are both negative patient's EKG showed a sinus rhythm first-degree heart block heart rate was 90 ER QRS QT within normal limits there is nonspecific T-wave inversion over the lateral leads. Patient denies having any chest pain during this episodes. Differential Diagnosis ACS, arrhythmia, alcohol intoxication, vasovagal syncope, electrolyte abnormality Admission/Observation Consideration of admission/observation: Escalation of care including admission/observation considered Lab Data [facility] Lab Attestation statement: I reviewed the patient's lab results. 05/19/22 19:33 05/19/22 19:33 Labs: Lab Results 05/19/22 05/19/22 05/19/22 Range/Units 19:33 19:33 19:33 WBC 10.6 (4.8-10.8) X10*3/uL RBC 4.83 (4.60-5.80) X10*6/uL Hgb 14.6 (14.0-18.0) g/dl Hct 43.3 (42.0-52.0) % MCV 89.6 (80.0-98.0) fL MCH 30.2 (27.0-33.0) pg MCHC 33.7 (31.0-36.0) g/dl RDW 12.9 (11.0-16.0) % Plt Count 233 (160-400) X10*3/uL MPV 9.9 (9.4-12.4) fL Immature Gran % (Auto) 0.3 (0.0-0.4) % Neut % (Auto) 81.9 H (45-73) % Lymph % (Auto) 11.8 L (20-40) % [place] % (Auto) 4.9 (2-11) % Eos % (Auto) 0.3 (0-4) % Baso % (Auto) 0.8 (0-2) % Lymph # (Auto) 1.3 (1.2-4.9) X10*3/uL [place] # (Auto) 0.5 (0.1-1.2) X10*3/uL Eos # (Auto) 0.0 (0.0-0.4) X10*3/uL Baso # (Auto) 0.1 (0.0-0.2) X10*3/uL Abs Immat Gran (auto) 0.03 (0.00-0.03) X10*3/uL Absolute Neuts (auto) 8.7 H (2.0-8.3) x10*3/uL Absolute Nucleated RBC 0.000 (0.0-0.012) X10*3/uL Nucleated RBC % (auto) 0.0 (0.0-0.2) /100WBC Sodium 137 (135-145) mmol/L Potassium 4.9 (3.3-5.1) mmol/L Chloride 103 (96-108) mmol/L Carbon Dioxide 24 (22-29) mmol/L Anion Gap 15 (12-20) BUN 11 (9-16) mg/dL Creatinine 1.19 (0.5-1.4) mg/dL Estim Creat Clear Calc 77.9 Estimated GFR > 60 Random Glucose 153 H (60-115) mg/dL Calcium 9.0 (8.4-10.2) mg/dL Total Bilirubin 0.4 (0.0-1.0) mg/dL AST 13 (5-37) U/L ALT 10 (0-40) U/L Alkaline Phosphatase 102 (39-117) U/L Troponin I High Sens < 3.5 (<3.5-35.0) ng/L Total Protein 6.2 L (6.5-8.0) g/dL Albumin 3.8 (3.5-5.0) g/dL Ethyl Alcohol mg/dL 05/19/22 05/19/22 Range/Units 21:37 21:37 WBC (4.8-10.8) X10*3/uL RBC (4.60-5.80) X10*6/uL Hgb (14.0-18.0) g/dl Hct (42.0-52.0) % MCV (80.0-98.0) fL MCH (27.0-33.0) pg MCHC (31.0-36.0) g/dl RDW (11.0-16.0) % Plt Count (160-400) X10*3/uL MPV (9.4-12.4) fL Immature Gran % (Auto) (0.0-0.4) % Neut % (Auto) (45-73) % Lymph % (Auto) (20-40) % [place] % (Auto) (2-11) % Eos % (Auto) (0-4) % Baso % (Auto) (0-2) % Lymph # (Auto) (1.2-4.9) X10*3/uL [place] # (Auto) (0.1-1.2) X10*3/uL Eos # (Auto) (0.0-0.4) X10*3/uL Baso # (Auto) (0.0-0.2) X10*3/uL Abs Immat Gran (auto) (0.00-0.03) X10*3/uL Absolute Neuts (auto) (2.0-8.3) x10*3/uL Absolute Nucleated RBC (0.0-0.012) X10*3/uL Nucleated RBC % (auto) (0.0-0.2) /100WBC Sodium (135-145) mmol/L Potassium (3.3-5.1) mmol/L Chloride (96-108) mmol/L Carbon Dioxide (22-29) mmol/L Anion Gap (12-20) BUN (9-16) mg/dL Creatinine (0.5-1.4) mg/dL Estim Creat Clear Calc Estimated GFR Random Glucose (60-115) mg/dL Calcium (8.4-10.2) mg/dL Total Bilirubin (0.0-1.0) mg/dL AST (5-37) U/L ALT (0-40) U/L Alkaline Phosphatase (39-117) U/L Troponin I High Sens < 3.5 (<3.5-35.0) ng/L Total Protein (6.5-8.0) g/dL Albumin (3.5-5.0) g/dL Ethyl Alcohol < 10 mg/dL Independent Interpretation I performed an independent interpretation of an: EKG Interpretation: Sinus pattern heart rate was 90 p.o. was prolonged. QRS QT within normal limits. There is no acute ST segment elevation there is T-wave inversion over the lateral leads. Discharge Plan Discharge Clinical Impression: Vasovagal syncope Patient Disposition: Home, Self-Care Instructions: Syncope (ED) Referrals: [facility] [Primary Care Provider] - 05/21/22
[2022-05-19] MEDS: 0.9 % Sodium Chloride 1,000 ML 999 ML IV (21:50)
[2022-05-19 21:53] LABS: Ethanol < 10 mg/dL
[2022-05-19 22:03] LABS: Troponin-I High Sensitivity < 3.5 ng/L (<3.5-35.0)
== END 2022-05-19 23:42 | disposition home or self-care (01) ==
PROVIDERS: Emergency Provider Emergency Medicine Emergency Medical Services
DX: R55 Syncope and collapse (principal); F12.90 Cannabis use, unspecified, uncomplicated; F10.90 Alcohol use, unspecified, uncomplicated; Y90.0 Blood alcohol level of less than 20 mg/100 ml
CPT/HCPCS: 36415; 80053; 82077; 84484; 85025; 93005; 96360; 99284

== ENCOUNTER 2022-11-12 23:06 | Emergency (ER) | payer OTHER, SELFPAY ==
--- NOTE | ~2022-11-12 | XR_ITS ---
EXAMINATION: LUMBAR SPINE, PELVIS AND RIGHT HIP CLINICAL INFORMATION: Fall with pain COMPARISON: None available. TECHNIQUE: 3 views lumbosacral spine, 2 views pelvis with 2 additional views right hip FINDINGS: Mild degenerative changes are present in the lumbar spine predominantly at L2-L3 and L3-L4. There are and plate changes with anterior osteophytes. A limbus vertebrae may be present at at L2. There appears to be lumbarization of S1. No acute fractures. The pelvis and hips show no evidence of an acute osseous injuries. Some mild degenerative changes are present in both hips with some supra-acetabular sclerosis. No fractures or bony destructive lesions. XR/XR lumbar spine 2-3V IMPRESSION: No evidence of an acute osseous injury. Degenerative changes as described above.
--- NOTE | ~2022-11-12 | XR_ITS ---
EXAMINATION: LUMBAR SPINE, PELVIS AND RIGHT HIP CLINICAL INFORMATION: Fall with pain COMPARISON: None available. TECHNIQUE: 3 views lumbosacral spine, 2 views pelvis with 2 additional views right hip FINDINGS: Mild degenerative changes are present in the lumbar spine predominantly at L2-L3 and L3-L4. There are and plate changes with anterior osteophytes. A limbus vertebrae may be present at at L2. There appears to be lumbarization of S1. No acute fractures. The pelvis and hips show no evidence of an acute osseous injuries. Some mild degenerative changes are present in both hips with some supra-acetabular sclerosis. No fractures or bony destructive lesions. XR/XR hip RT w PEL1V IMPRESSION: No evidence of an acute osseous injury. Degenerative changes as described above.
[2022-11-12 23:10] VITALS: BP 127/73; PULSE 113; RESP 16; TEMP 36.8; O2SAT 95; BMI 25.0
--- OUTSIDE RECORDS SUMMARY | 2022-11-12 23:21 | XMS_ITS | Continuity of Care Document ---
Author Name Unknown Organization [facility] Venkata lt Address [address] [place] [address]- Care Team Providers Care Potato Chip Frier Name Role Phone Rehan FLOREZ, Nazario Jensen Primary Care Physician [phone] Encounter [facility] Date(s): 07/11/22 - 07/18/22 [facility] Adult [address] [place] [address]- Encounter Diagnosis Cough(Discharge Diagnosis) - 07/11/22 Attending Physician: Ava Vail Allergies, Adverse Reactions, Alerts Substance Reaction Severity Status ibuprofen Stomach upset Active NSAIDs 1 Active 1stomach ulcers Immunizations Given and Recorded Vaccine Date Status Refusal Reason SARS-CoV-2 (COVID-19) Ad26 vaccine 1 08/15/20 Give n Influenza Virus Vaccine (oldterm) 02/19/20 Recorde d influenza virus vaccine, inactivated 12/07/19 Rafael rded influenza virus vaccine, inactivated 04/24/19 Give n influenza virus vaccine, inactivated 10/19/16 Rafael rded influenza virus vaccine, inactivated 02/03/16 Rafael rded tetanus/diphtheria/pertussis, acel(Tdap) 10/19/16 Recorded tetanus/diphtheria/pertussis, acel(Tdap) 02/19/16 Recorded pneumococcal 23-valent vaccine 02/03/16 Recorded Not Given Vaccine Date Status Refusal Reason Influenza Virus Vaccine (oldterm) 05/16/18 Not Giv en Patient Refuses 1Result Comment: ADMINISTERED TO PT PER DR MAYER Medications Albuterol (Eqv-ProAir HFA) 90 mcg/inh inhalation aerosol 2 puffs, Inhalation, Every 6 hours, # 6.7 Gm, 0 Refills, Maintenance, 07/11/22 14:57:00 EDT, [facility] #[id number], Partial fill upon patient request if the prescription is for a schedule II opioid drug., 2 puffs Inhalation Every 6 hours, 184.5,... Start Date: 07/11/22 Status: Ordered codeine-guaifenesin 10 mg-100 mg/5 mL oral syrup 5 mL, By Mouth, Every 4 hours, PRN for cough, # 180 mL, 0 Refills, Acute 07/25/22 15:30:00 EDT, 07/11/22 14:57:00 EDT, Syrup, [facility] #[id number], Partial fill upon patient request if the prescription is for a schedule II opioid drug., 5 mL By... Start Date: 07/11/22 Stop Date: 07/25/22 Status: Ordered duloxetine 60 mg oral enteric coated capsule 1 capsule, By Mouth, Daily, for 30 days, # 30 capsule, 5 Refills, Physician Stop 09/22/22 17:51:00 EDT, 03/26/22 17:51:00 EST, [facility] #[id number], 184.5, cm, 02/20/22 9:16:00 EST, Height Start Date: 03/26/22 Stop Date: 09/22/22 Status: Ordered gabapentin 400 mg oral capsule See Instructions, TAKE 1 CAPSULE BY MOUTH THREE TIMES DAILY, # 270 capsule, Refills 1, Tot. Refills1, 06/22/22 10:07:00 EDT, Instructions Replace Required Details, Route to Pharmacy Electronically, [facility] #[id number], 184.5, cm, 04/02/22 10:... Start Date: 06/22/22 Status: Ordered Nicotine 2 mg gum 1 each = 2 mg, Chew, Every 2 hours, PRN as needed for smoking cessation, # 160 each, 0 Refills, Acute 08/08/22 15:30:00 EDT, 07/11/22 14:56:00 EDT, Gum, [facility] #[id number], Partial fill uponpatient request if the prescription is for a schedu... Start Date: 07/11/22 Stop Date: 08/08/22 Status: Ordered tamsulosin 0.4 mg oral capsule 0.4 mg, 1, capsule, By Mouth, Daily at bedtime, # 30 capsule, Refills 5, Tot. Refills 5, Maintenance, 04/16/22 15:56:00 EST, Route to Pharmacy Electronically, [facility] #[id number], Partial fill upon patient request if the [...] use Confirmed Active Umbilical hernia Confirmed Active Diagnosis Diagnosis Type Effective Dates Health Status Clini renetta Service Informant Cough Discharge Diagnosis 07/11/22 Vital Signs Most recent to oldest [Reference Range]: 1 Height 184.5 cm (07/11/22 2:40 PM) Weight 82.4 kg (07/11/22 2:40 PM) Oxygen Saturation [94-100 %] 97 % (07/11/22 2:40 PM) Pulse Rate [55-90 bpm] 104 bpm *H* (07/11/22 2:40 PM) Body Mass Index [18.5-24.99 kg/m2] 24.21 kg/m2 (07/11/22 2:40 PM) Blood Pressure [90-138/55-84 mm Hg] 128/ 88mm Hg (07/11/22 2:40 PM) Respiratory Rate [16-30 br/min] 16 br/mi n (07/11/22 2:40 PM) Temperature [96.8-100.4 DegF] 98.3 DegF (07/11/22 2:40 PM) Mode of Delivery (Oxygen) Room air (07/11/22 2:40 PM) Blood pressure sites Arm, left (07/11/22 2:40 PM) Temperature Route Oral (07/11/22 2:40 PM) Weight Obtained Via Standing scale (07/11/22 2:40 PM) Social History Social History Type Response Smoking Status Current every day gaye fox entered on: 05/06/15 Sex Male Patient Care team information Care Team Personnel Name: Miranda Nielsen [place] Position: [facility] EDELMIRA SCHAFER Member Role: Primary Care Nurse Name: Gabrielle Giles Position: [facility] Member Role: Primary Care Nurse Name: Nazario Mayer MD Position: [facility] Physician - Primary Care Member Role: PCP Address: Address: [address] [place] [address]- Care Team Related Persons Name: SHALOM DOLAN Address: [address] [address] Name: WILLOW JOVEL Address: home [address] [place] [address] Name: RODNEY JAMES Address: home [address] [place] [address]
--- OUTSIDE RECORDS SUMMARY | 2022-11-12 23:21 | XMS_ITS | Continuity of Care Document ---
Author Name Unknown Organization [facility] Venkata lt Address [address] [place] [address]- Care Team Providers Care Data Entry Technician Name Role Phone Rehan FLOREZ, Nazario Jensen Primary Care Physician Encounter [facility] Date(s): 09/24/22 - 10/24/22 [facility] Adult [address] [place] [address]- Allergies, Adverse Reactions, Alerts Substance Reaction Severity [...] 02/19/16 Recorded pneumococcal 23-valent vaccine 02/03/16 Recorded 1Result Comment: ADMINISTERED TO PT PER DR MAYER Medications Albuterol (Eqv-Proventil HFA) 90 mcg/inh inhalation aerosol 2 puffs, Inhalation, Every 6 hours, # 6.7 Gm, 0 Refills, Maintenance, 07/30/22 14:07:00 EDT, [facility] #[id number], 184.5, cm, 07/11/22 14:40:00 EDT, Height Start Date: 07/30/22 Status: Ordered gabapentin 400 mg oral capsule See Instructions, TAKE 1 CAPSULE BY MOUTH THREE TIMES DAILY, # 270 capsule, Refills 1, Tot. Refills1, 06/22/22 10:07:00 EDT, Instructions Replace Required Details, Route to Pharmacy Electronically, [facility] #[id number], 184.5, cm, 04/02/22 10:... Start Date: 06/22/22 Status: Ordered tamsulosin 0.4 mg oral capsule 0.4 mg, 1, capsule, By Mouth, Daily at bedtime, # 30 capsule, Refills 5, Tot. Refills 5, Maintenance, 04/16/22 15:56:00 EST, Route to Pharmacy Electronically, [facility] #[id number], Partial fill upon patient request if the [...] Team Personnel Name: Miranda Nielsen [place] Position: [facility] RN Member Role: Primary Care Nurse Name: Gabrielle Giles Position: [facility] RN Member Role: Primary Care Nurse Name: Nazario Mayer MD Position: [facility] Physician - Primary Care Member Role: PCP Address: Address: [address] [place] [phone]- Care Team Related Persons Name: SHALOM DOLAN Address: [address] [address] Name: WILLOW JOVEL Address: home [address] [place] [address] Name: RODNEY JAMES Address: home [address] [place] [address]
--- OUTSIDE RECORDS SUMMARY | 2022-11-12 23:21 | XMS_ITS | Continuity of Care Document ---
Author Name Unknown Organization [facility] Venkata lt Address [address] [place] [address]- Care Team Providers Care Photovoltaic Panel Installer Name Role Phone Rehan FLOREZ, Nazario Jensen Primary Care Physician [phone] Encounter [facility] Date(s): 06/22/22 - 07/22/22 [facility] Adult [address] [place] [address]- Allergies, Adverse Reactions, Alerts Substance Reaction Severity [...] Gm, 0 Refills, Maintenance, 07/11/22 14:57:00 EDT, [facility] #[id number], Partial fill upon patient request if the prescription is for a schedule II opioid drug., 2 puffs Inhalation Every 6 hours, 184.5,... Start Date: 07/11/22 Status: Ordered codeine-guaifenesin 10 mg-100 mg/5 mL oral syrup 5 mL, By Mouth, Every 4 hours, PRN for cough, # 180 mL, 0 Refills, Acute 07/25/22 15:30:00 EDT, 07/11/22 14:57:00 EDT, Syrup, [facility] #[id number], Partial fill upon patient request if the prescription is for a schedule II opioid drug., 5 mL By... Start Date: 07/11/22 Stop Date: 07/25/22 Status: Ordered codeine-guaifenesin 10 mg-100 mg/5 mL oral syrup 5 mL, By Mouth, Every 4 hours, PRN for cough, # 180 mL, 0 Refills, Acute 07/27/22 11:00:00 EDT, 07/25/22 15:30:00 EDT, Syrup, [facility] #[id number], Partial fill upon patient request if the prescription is for a schedule II opioid drug., 5 mL By... Start Date: 07/25/22 Stop Date: 07/27/22 Status: Ordered duloxetine 60 mg oral enteric coated capsule 1 capsule, By Mouth, Daily, for 30 days, # 30 capsule, 5 Refills, Physician Stop 09/22/22 17:51:00 EDT, 03/26/22 17:51:00 EST, [facility] #[id number], 184.5, cm, 02/20/22 9:16:00 EST, Height Start Date: 03/26/22 Stop Date: 09/22/22 Status: Ordered gabapentin 400 mg oral capsule See Instructions, TAKE 1 CAPSULE BY MOUTH THREE TIMES DAILY, # 270 capsule, Refills 1, Tot. Refills1, 06/22/22 10:07:00 EDT, Instructions Replace Required Details, Route to Pharmacy Electronically, [facility] #[id number], 184.5, cm, 04/02/22 10:... Start Date: 06/22/22 Status: Ordered Nicotine 2 mg gum 1 each = 2 mg, Chew, Every 2 hours, PRN as needed for smoking cessation, # 160 each, 0 Refills, Acute 08/08/22 15:30:00 EDT, 07/11/22 14:56:00 EDT, Gum, [facility] #[id number], Partial fill uponpatient request if the prescription is for a schedu... Start Date: 07/11/22 Stop Date: 08/08/22 Status: Ordered tamsulosin 0.4 mg oral capsule 0.4 mg, 1, capsule, By Mouth, Daily at bedtime, # 30 capsule, Refills 5, Tot. Refills 5, Maintenance, 04/16/22 15:56:00 EST, Route to Pharmacy Electronically, [facility] #[id number], Partial fill upon patient request if the [...] Type Response Smoking Status Current every day sm dominique entered on: 05/06/15 Sex Male Patient Care team information Care Team Personnel Name: Miranda Nielsen [place] Position: [facility] EDELMIRA SCHAFER Member Role: Primary Care Nurse Name: Gabrielle Giles Position: [facility] EDELMIRA SCHAFER Member Role: Primary Care Nurse Name: Nazario Mayer MD Position: [facility] Physician - Primary Care Member Role: PCP Address: Address: [address] [place] [address]- Care Team Related Persons Name: SHALOM DOLAN Address: home [address] [facility] [address] [place] [address] Name: WILLOW JOVEL Address: home [address] [place] [address] Name: RODNEY JAMES Address: home [address] [place] [address]
--- OUTSIDE RECORDS SUMMARY | 2022-11-12 23:21 | XMS_ITS | Continuity of Care Document ---
Author Name Unknown Organization [facility] Venkata lt Address [address] [place] [address]- Care Team Providers Care Chemical Mixer Name Role Phone Rehan FLOREZ, Nazario Jensen Primary Care Physician [phone] Encounter [facility] Date(s): 07/23/22 - 08/22/22 [facility] Adult [address] [place] [address]- Allergies, Adverse Reactions, Alerts Substance Reaction Severity [...] Gm, 0 Refills, Maintenance, 07/30/22 14:07:00 EDT, [facility] #[id number], 184.5, cm, 07/11/22 14:40:00 EDT, Height Start Date: 07/30/22 Status: Ordered duloxetine 60 mg oral enteric coated capsule 1 capsule, By Mouth, Daily, for 30 days, # 30 capsule, 5 Refills, Physician Stop 09/22/22 17:51:00 EDT, 03/26/22 17:51:00 EST, [facility] #[id number], 184.5, cm, 02/20/22 9:16:00 EST, Height Start Date: 03/26/22 Stop Date: 09/22/22 Status: Ordered gabapentin 400 mg oral capsule See Instructions, TAKE 1 CAPSULE BY MOUTH THREE TIMES DAILY, # 270 capsule, Refills 1, Tot. Refills1, 06/22/22 10:07:00 EDT, Instructions Replace Required Details, Route to Pharmacy Electronically, [facility] #[id number], 184.5, cm, 04/02/22 10:... Start Date: 06/22/22 Status: Ordered tamsulosin 0.4 mg oral capsule 0.4 mg, 1, capsule, By Mouth, Daily at bedtime, # 30 capsule, Refills 5, Tot. Refills 5, Maintenance, 04/16/22 15:56:00 EST, Route to Pharmacy Electronically, [facility] #[id number], Partial fill upon patient request if the [...] Team Personnel Name: Miranda Nielsen [place] Position: [facility] RN Member Role: Primary Care Nurse Name: Gabrielle Giles Position: [facility] RN Member Role: Primary Care Nurse Name: Nazario Mayer MD Position: [facility] Physician - Primary Care Member Role: PCP Address: Address: [address] [place] [address] [place] Care Team Related Persons Name: MAGDALENOCHASEDY Address: [address] [address] Name: WILLOW JOVEL Address: home [address] [place] [address] Name: RODNEY JAMES Address: home [address] [place] [address]
--- OUTSIDE RECORDS SUMMARY | 2022-11-12 23:22 | XMS_ITS | Continuity of Care Document ---
Author Name Unknown Organization [facility]kata lt Address [address] [place] [address]- Care Team Providers Care Document Management Technician Name Role Phone Rehan FLOREZ, Nazario Jensen Primary Care Physician [place] [facility] [place]22 - 08/10/22 [facility] Adult [address] [place] [address]- Attending Physician: Admtr, Ar8 Admitting Physician: Admtr, [...] Gm, 0 Refills, Maintenance, 07/30/22 14:07:00 EDT, [facility] #[id number], 445.5, cm, 07/11/22 14:40:00 EDT, Height Start Date: 07/30/22 Status: Ordered duloxetine 60 mg oral enteric coated capsule 1 capsule, By Mouth, Daily, for 30 days, # 30 capsule, 5 Refills, Physician Stop 09/22/22 17:51:00 EDT, 03/26/22 17:51:00 EST, [facility] #[id number], 184.5, cm, 02/20/22 9:16:00 EST, Height Start Date: 03/26/22 Stop Date: 09/22/22 Status: Ordered gabapentin 400 mg oral capsule See Instructions, TAKE 1 CAPSULE BY MOUTH THREE TIMES DAILY, # 270 capsule, Refills 1, Tot. Refills1, 06/22/22 10:07:00 EDT, Instructions Replace Required Details, Route to Pharmacy Electronically, [facility] #[id number], 184.5, cm, 04/02/22 10:... Start Date: 06/22/22 Status: Ordered tamsulosin 0.4 mg oral capsule 0.4 mg, 1, capsule, By Mouth, Daily at bedtime, # 30 capsule, Refills 5, Tot. Refills 5, Maintenance, 04/16/22 15:56:00 EST, Route to Pharmacy Electronically, [facility] #[id number], Partial fill upon patient request if the [...] study * Event Display: EKG Authored Date: [id number] Radiology * Event Display: X-Ray Chest, Non- BH Authored Date: Patient Care team information Care Team Personnel Name: Miranda Nielsen [place] Position: [facility] RN Member Role: Primary Care Nurse Name: Gabrielle Giles Position: [facility] RN Member Role: Primary Care Nurse Name: Nazario Mayer MD Position: [facility] Physician - Primary Care Member Role: PCP Address: Address: [address] [place] [id number]- [place] Care Team Related Persons Name: SHALOM DOLAN Address: home [address] [address] Name: WILLOW JOVEL Address: home [address] [place] [address] Name: RODNEY JAMES Address: home [address] [place] [address]
--- OUTSIDE RECORDS SUMMARY | 2022-11-12 23:22 | XMS_ITS | Continuity of Care Document ---
Author Name Unknown Organization [facility] lt Address [address] [place] [address]- Care Team Providers Care Financial Aid Administrator Name Role Phone Nazario Mayer MD Primary Care Physician [place] [facility] [place]14/22 [facility] Adult [address] [place] [address]- Attending Physician: Nazario Mayer MD Allergies, Adverse [...] Gm, 0 Refills, Maintenance, 07/30/22 14:07:00 EDT, [facility] #[id number], 184.5, cm, 07/11/22 14:40:00 EDT, Height Start Date: 07/30/22 Status: Ordered gabapentin 400 mg oral capsule See Instructions, TAKE 1 CAPSULE BY MOUTH THREE TIMES DAILY, # 270 capsule, Refills 1, Tot. Refills1, 06/22/22 10:07:00 EDT, Instructions Replace Required Details, Route to Pharmacy Electronically, [facility] #[id number], 184.5, cm, 04/02/22 10:... Start Date: 06/22/22 Status: Ordered tamsulosin 0.4 mg oral capsule 0.4 mg, 1, capsule, By Mouth, Daily at bedtime, # 30 capsule, Refills 5, Tot. Refills 5, Maintenance, 04/16/22 15:56:00 EST, Route to Pharmacy Electronically, [facility] #[id number], Partial fill upon patient request if the [...] Team Personnel Name: Miranda Nielsen [place] Position: [facility] RN Member Role: Primary Care Nurse Name: Gabrielle Giles Position: [facility] RN Member Role: Primary Care Nurse Name: Nazario Mayer MD Position: [facility] Physician - Primary Care Member Role: PCP Address: Address: [address] [place] [address]- Care Team Related Persons Name: SHALOM DOLAN Address: home [address] [address] Name: WILLOW JOVEL Address: home [address] [place] [address] Name: RODNEY JAMES Address: home [address] [place] [address]
--- OUTSIDE RECORDS SUMMARY | 2022-11-12 23:23 | XMS_ITS | Continuity of Care Document ---
Author Name Unknown Organization [facility] Venk[facility] lt Address [address] [place] [address]- Care Team Providers Care Supervisor [employer] Name Role Phone Rehan FLOREZ, Nazario Jensen Primary Care Physician [phone] [place]counter [facility] [place]14[place]22 - 10/14/22 [facility] Adult [address] [place] [address]- Attending Physician: Admtr, Ar8 Admitting Physician: Admtr, [...] Gm, 0 Refills, Maintenance, 07/30/22 14:07:00 EDT, [facility] #[id number], 184.5, cm, 07/11/22 14:40:00 EDT, Height Start Date: 07/30/22 Status: Ordered gabapentin 400 mg oral capsule See Instructions, TAKE 1 CAPSULE BY MOUTH THREE TIMES DAILY, # 270 capsule, Refills 1, Tot. Refills1, 06/22/22 10:07:00 EDT, Instructions Replace Required Details, Route to Pharmacy Electronically, [facility] #[id number], 184.5, cm, 04/02/22 10:... Start Date: 06/22/22 Status: Ordered tamsulosin 0.4 mg oral capsule 0.4 mg, 1, capsule, By Mouth, Daily at bedtime, # 30 capsule, Refills 5, Tot. Refills 5, Maintenance, 04/16/22 15:56:00 EST, Route to Pharmacy Electronically, [facility] #[id number], Partial fill upon patient request if the [...] study * Event Display: EKG Authored Date: [id number] Radiology * Event Display: X-Ray Chest, Non- BH Authored Date: Patient Care team information Care Team Personnel Name: Miranda Nielsen [place] Position: [facility] RN Member Role: Primary Care Nurse Name: Gabrielle Giles Position: [facility] RN Member Role: Primary Care Nurse Name: Nazario Mayer MD Position: [facility] Physician - Primary Care Member Role: PCP Address: Address: [address] [place] [address]- Care Team Related Persons Name: SHALOM DOLAN Address: home [address] [address] Name: WILLOW JOVEL Address: home [address] [place] [address] Name: RODNEY JAMES Address: home [address] [place] [address]
--- NOTE | 2022-11-13 00:11 | PC.NURSE ---
Pt presents to ED with back and hip pain. Pt reports he has chronic neck and back pain, regularly uses a motorized wheelchair. Pt fell a few weeks ago, had bruising on his right arm which has gone away by now. Pt now reporting a shooting pain in his right hip, radiating down his right leg. CSM in tact x4 extremities. Pt is A&Ox4, GCS 15, with warm, dry skin. Pt was changed into hospital clothes, waiting to be seen by ED provider at this time.
[2022-11-13 00:13] VITALS: BP 121/75; PULSE 84; TEMP -12.7; TEMP 9.2; O2SAT 96
[2022-11-13] MEDS: traMADoL HCL 50 MG TABLET PO (00:42)
--- NOTE | 2022-11-13 01:09 | ED.GENADULT ---
HPI - General Adult General Chief complaint: Back Pain/Injury Stated complaint: Back pain/ Fall couple weeeks ago Time Seen by Provider: 11/13/22 00:10 Source: patient, RN notes reviewed and old records reviewed Mode of arrival: wheelchair Limitations: no limitations History of Present Illness HPI narrative: This 62-year-old male presents for evaluation of acute on chronic back pain. He reports that he fell about 3 weeks ago while tripping over a step. He does use a wheelchair as needed due to his chronic back pain but is able to ambulate He fell onto his right side and has been having right lower back and right hip pain ever since He reports his pain is a 7/10 He also states that he has been unable to see his primary doctor because ?I could not call them to make an appointment because my phone is broken. ? He states that a very close friend of his recently and he has been having increasing depression The patient has been off of his Cymbalta for the last 2 weeks because ?I ran out and could not see my doctor. ? He states that he is not suicidal but feels that he should be started back on his Cymbalta because ?I am thinking about him all the time. Patient denies any numbness, tingling, difficulty urinating or urinary retention Related Data Previous Rx's Medication Instructions Recorded duloxetine 60 mg capsule,delayed 60 mg PO DAILY #30 caps 11/13/22 release (Cymbalta) methocarbamol 500 mg tablet 500 mg PO TID PRN muscle spasm #15 11/13/22 tabs tramadol 50 mg tablet 50 mg PO TID PRN severe pain 11/13/22 (scale score 7-10) #12 tabs Allergies Allergy/AdvReac Type Severity Reaction Status Date / Time NSAIDS (Non-Steroidal AdvReac Gastrointestinal Verified 11/12/22 23:17 Anti-Inflamma Upset Review of Systems Constitutional: Constitutional: Denies chills, Denies fever(s) and Denies headache(s) Eyes: Eyes: Denies blurry vision ENT: Denies headache(s) and Denies throat swelling Cardiovascular: Cardiovascular: Denies chest pain and Denies dyspnea Respiratory: Respiratory: Denies cough, Denies dyspnea and Denies wheezing Gastrointestinal: Gastrointestinal: Denies abdominal pain, Denies nausea, Denies vomiting and Denies other Musculoskeletal: Musculoskeletal: Reports back pain, Reports arthralgias, Denies joint swelling and Reports limited range of motion Integumentary/Breasts: Skin/Breast: Denies rash Neurologic: Denies headache(s) Allergic/Immunologic: Allergic/Immunologic: Denies throat swelling and Denies wheezing PMFSH Past Medical History Medical History Alcohol intoxication Social History Social History Alcohol intake: never Smoked in Last 30 Days: No Use of substances other than those prescribed or required for medical reasons: Yes Substance Use Type: Marijuana Substance Use Frequency: Weekly Advance Directives: No Advance Directives Information Provided: No Physical Exam ED Vital Signs: Vital Signs - 24 hr 11/12/22 23:10 11/13/22 00:13 Temperature 98.3 F 9.2 F L Pulse Rate 113 H 84 Respiratory Rate 16 Blood Pressure 127/73 121/75 Pulse Oximetry 95 96 Oxygen Delivery Method Room Air Room Air BMI result Body Mass Index 25.0 Const General: healthy appearing, comfortable, no acute distress, alert and awake Nutritional Appearance: well nourished Orientation/consciousness: patient oriented x3 HENMT Head: Yes normocephalic and Yes atraumatic Eyes Eyelids: Yes eyelids normal Conjunctivae: conjunctivae normal Sclerae: sclerae normal Corneas: corneas normal Pupils: Equal, round and reactive pupils present EOM: EOMs intact bilaterally Neck Neck: Yes full ROM Resp Effort & Inspection: normal respiratory effort, able to speak in complete sentences and not labored Cardio Rate: regular rate Rhythm: regular rhythm GI Inspection: No distended Palpation (GI): Soft to palpation, not firm, nontender, no guarding and not rigid Back/Spine/Pelvis Other: Tendon the right lumbar paraspinous region. No focal vertebral tenderness. Negative straight leg raise bilaterally. Skin General skin exam: elasticity normal Neuro General: patient oriented x3 Cranial nerves: Yes Equal, round and reactive pupils present and Yes Bilaterally intact EOM present Cognition (Neuro): normal cognition Motor exam (neuro): 5/5 motor strength present throughout Extrem Other: Moving all extremities well without any obvious deformities Medications Administered Discontinued Medications Generic Name Dose Route Start Last Admin Trade Name Freq PRN Reason Stop Dose Admin Tramadol HCl 50 mg 11/13/22 00:18 11/13/22 00:42 Tramadol Hcl 50 Mg Tablet PO 11/13/22 00:19 50 mg ONCE ONE Administration Medical Decision Making Medical Decision Making MDM Narrative: Patient has chronic back pain. He denies any new neuro deficits per reports that he fell 2 or 3 weeks ago and has been unable to see any doctor since. Plan for x-rays of the lumbar spine and the right hip. However I have a low suspicion for fracture given the subacute presentation. Patient has no warning flags for cauda equina syndrome. Regarding his depression, I asked several times the patient would like to speak with the care team or any thoughts of suicidality and he is consistent and adamant that he is not suicidal his chest seeking to be restarted on his Cymbalta. I encouraged the patient to call 911 or return to the emergency department immediately if he has any worsening depression or any thoughts of harming himself Differential Diagnosis Differential Diagnoses: The differential diagnosis associated with the presentation includes Hip Compression fracture Sciatica Radiculopathy Depression Independent Interpretation I performed an independent interpretation of an: Plain X-Ray (Straightening of the normal lumbar curvature suggest a muscle strain. No obvious fracture. No right hip fracture or pelvic fracture) Radiology Impression Discussion of test interpretation with radiology: I have reviewed the radiologist's reading. (No acute osseous abnormality) Discharge Plan Discharge Clinical Impression: Lumbar radiculopathy, Depression Patient Disposition: Home, Self-Care Instructions: Depression (ED), Acute Low Back Pain (ED) Additional Instructions: He may use Tylenol as needed for pain. Use tramadol for more severe, breakthrough pain. This may make you sleepy, do not drink alcohol or drive after taking it. You may also use methocarbamol as needed for muscle spasms This may also make you sleepy Take Cymbalta as prescribed Prescriptions: New tramadol 50 mg tablet 50 mg PO TID PRN (Reason: severe pain (scale score 7-10)) Qty: 12 0RF methocarbamol 500 mg tablet 500 mg PO TID PRN (Reason: muscle spasm) Qty: 15 0RF duloxetine [Cymbalta] 60 mg capsule,delayed release(DR/EC) 60 mg PO DAILY Qty: 30 0RF
[2022-11-13] MEDS: DULoxetine HCl 60 MG CAPSULE.DR PO (01:23)
== END 2022-11-13 01:33 | disposition home or self-care (01) ==
PROVIDERS: Emergency Provider Emergency Medicine; PCP Internal Medicine
DX: M54.16 Radiculopathy, lumbar region (principal); F32.A Depression, unspecified; M25.551 Pain in right hip; Z79.899 Other long term (current) drug therapy
CPT/HCPCS: 72100; 73502; 99283; 99284

== ENCOUNTER 2024-11-10 12:43 | Emergency (ER) | payer OTHER, SELFPAY ==
[2024-11-10] VITALS (7 sets, daily range): BP systolic 106–145; BP diastolic 65–82; PULSE 62–116; RESP 18–19; TEMP 36.4–36.6; O2SAT 95–98; BMI 24.4
--- NOTE | ~2024-11-10 | CT_ITS ---
EXAMINATION: CT HEAD WITHOUT CONTRAST CLINICAL INFORMATION: Dizziness, history of CVA COMPARISON: None available. TECHNIQUE: Contiguous axial imaging was performed from the skull base to vertex without intravenous administration of contrast. This CT examination was performed using dose optimization techniques as appropriate, variously including the following: *Automated exposure control *Adjustment of mA and/or kV according to patient size (this includes techniques or standardized protocols for targeted exams where dose is matched to indication/reason for exam; i.e. extremities or head) *Use of iterative reconstruction technique FINDINGS: Semicircular area of encephalomalacia is present in the right luke related to prior infarct. There is no acute ischemic change. There is no intracranial hemorrhage. There is no mass-effect or midline shift. Basal cisterns and ventricles are within normal limits for age/cerebral volume. Orbits are symmetrical and unremarkable. Paranasal sinuses and mastoid air cells are pneumatized. There are no bony abnormalities. CT/CT head/brain wo IV con IMPRESSION: No acute intracranial abnormality. Chronic right pontine infarct. Electronically signed by: Jose Ramon Childress MD 11/10/2024 01:27 PM EDT
--- NOTE | ~2024-11-10 | CT_ITS ---
EXAMINATION: CT ANGIOGRAM HEAD AND NECK CLINICAL INFORMATION: Gait instability, right-sided neck pain, dizziness. History of pontine infarct. COMPARISON: None. Correlation made with noncontrast head CT dated earlier same day. TECHNIQUE: Test bolus sequences and head and neck intravenous bolus administration 70 mL of Omnipaque 350. Helical imaging was performed in the axial plane from the aortic arch to the skull vertex. The data was processed at the ct scan special procedures technologist's workstation for generation of MIP sequences. Angled MIPs and volume rendered reformatted images were also generated at an offline 3D workstation. Stenoses are assessed in accordance with NASCET criteria unless otherwise indicated. This CT examination was performed using dose optimization techniques as appropriate, variously including the following: *Automated exposure control *Adjustment of mA and/or kV according to patient size (this includes techniques or standardized protocols for targeted exams where dose is matched to indication/reason for exam; i.e. extremities or head) *Use of iterative reconstruction technique FINDINGS: NECK CTA: -AORTIC ARCH: Normal in caliber. Mild atheromatous calcification. Three-vessel branching pattern. -GREAT VESSEL ORIGINS: Widely patent. No stenosis. -RIGHT COMMON CAROTID ARTERY: Normal in course and caliber to the level of the bifurcation. -CERVICAL RIGHT INTERNAL CAROTID ARTERY: Normal opacification without focal stenosis or occlusion. -LEFT COMMON CAROTID ARTERY: Normal in course and caliber to the level of the bifurcation. -CERVICAL LEFT INTERNAL CAROTID ARTERY: Mild calcific atherosclerotic disease of the carotid bulb and proximal internal carotid artery without flow-limiting stenosis. -CERVICAL RIGHT VERTEBRAL ARTERY: Normal in course and caliber into the skull base. -CERVICAL LEFT VERTEBRAL ARTERY: Mildly dominant. Normal in course and caliber into the skull base. OTHER, SOFT TISSUES: -No lymphadenopathy or mass. No abnormal fluid collection or soft tissue swelling. -Normal thyroid. -Imaged superior mediastinal structures normal. -Imaged lung apices clear. CTA OF THE BRAIN: -INTRACRANIAL INTERNAL CAROTID ARTERIES: Calcific atherosclerotic disease of the intracranial internal carotid arteries without occlusion or flow-limiting stenosis. -RIGHT ANTERIOR CEREBRAL ARTERY: Normal A1 segment. Normal arborization of the distal segments. -LEFT ANTERIOR CEREBRAL ARTERY: Normal A1 segment. Normal arborization of the distal segments. -ANTERIOR COMMUNICATING ARTERY: Normal. -RIGHT MIDDLE CEREBRAL ARTERY: Normal M1 segment of the MCA without focal stenosis or occlusion. Normal arborization of the distal segments. -LEFT MIDDLE CEREBRAL ARTERY: Normal M1 segment of the MCA without focal stenosis or occlusion. Normal arborization of the distal segments. -RIGHT VERTEBRAL ARTERY V4: Normal in course and caliber. -LEFT VERTEBRAL ARTERY V4: Normal in course and caliber. -BASILAR ARTERY: Normal without focal stenosis or occlusion. Normal appearance of the proximal superior cerebellar arteries. Normal basilar tip. -RIGHT POSTERIOR CEREBRAL ARTERY: Normal P1 segment. Normal opacification of the distal [employer] segments. -LEFT POSTERIOR CEREBRAL ARTERY: Normal P1 segment. Normal opacification of the distal [employer] segments. -POSTERIOR COMMUNICATING ARTERIES: Not well seen bilaterally. Normal opacification of the superior sagittal, straight, transverse, and sigmoid sinuses. No venous thrombosis. No space-occupying hemorrhage or definite evolving infarct. CT/CT angio head neck IMPRESSION: CTA NECK: 1. No significant stenosis, occlusion, dissection, or aneurysm in the major cervical arterial vasculature. CTA HEAD: 1. No significant stenosis, occlusion, dissection, or aneurysm in the major intracranial arterial vasculature. 2. Major cortical and dural venous sinuses are patent. 3. No space-occupying hemorrhage or evolving infarct. 4. Old infarct right luke. Electronically signed by: Ronnie Slater MD 11/10/2024 03:22 PM EDT
--- NOTE | 2024-11-10 12:52 | ED_ITS ---
HPI - General Adult General Chief complaint: Dizziness Stated complaint: dizzy Time Seen by Provider: 11/10/24 13:18 Source: patient and old records reviewed Mode of arrival: ambulatory Limitations: no limitations History of Present Illness ED Provider: MIKE YAÑEZ narrative: 64 yo male with PMH of BPH, HTN, CVA, anxiety on baby aspirin here with c/o noting feeling like he was swaying left to right. He had a prior CVA with residual gait issues and LLE weakness that is mild he states. He denies recent trauma, neck manipulation. He is not drinking ETOH. He is compliant with all medications. Not on thinners. He has no cp/sob. He notes he had n/v as well. He is feeling a little better. He states he was just watching TV at 10pm in bed when this happened. MD complaint: dizziness Onset (ago): hour(s) (last night 10pm) Location: head Radiation: non-radiation Severity: moderate Relieving factors: immobilization Exacerbating factors: movement Associated symptoms: nausea/vomiting Treatments prior to arrival: none Related Data Previous Rx's ?Medication ?Instructions ?Recorded duloxetine 60 mg capsule,delayed 60 mg PO DAILY #30 ca ps 11/13/22 release (Cymbalta) methocarbamol 500 mg tablet 500 mg PO TID PRN muscle s pasm #15 11/13/22 tabs tramadol 50 mg tablet 50 mg PO TID PRN severe pain 11/13/22 (scale score 7-10) #12 tabs meclizine 25 mg tablet 25 mg PO TID PRN dizziness # 30 tabs 11/10/24 Allergies Allergy/AdvReac Type Severity Reaction Status Date / Time NSAIDS (Non-Steroidal AdvReac Gastrointestinal Verified 11/10/24 12:50 Anti-Inflamma Upset Review of Systems 2 Review of Systems: Constitutional : No Fever, No Chills, No Fatigue ENT/Mouth : No sore throat, No Rhinorrhea Eyes: No Eye Pain, No Swelling, No Redness Cardiovascular : No Chest Pain, No SOB, No Dyspnea on Exertion Respiratory : No Cough, No Sputum Gastrointestinal : No Nausea, No Vomiting, No Diarrhea, No abdominal Pain Genitourinary : No Dysuria, No Urinary Frequency, No Hematuria, Musculoskeletal : No joint pain, No Myalgias, No Joint Swelling Skin : No Skin Lesions, No rash Neuro : No Weakness, No Numbness, pos dizziness All other systems reviewed and are negative [facility], [facility] Past Medical History Attestation statement: The following information was validated with the patient. Source: old records reviewed Medical History (Updated 11/10/24 @ 15:17 by Guadalupe Bergman DO) BPH (benign prostatic hyperplasia) HTN (hypertension) Alcohol intoxication Social History Social History Alcohol intake: never Substance Use Type: Marijuana Advance Directives: No Advance Directives Information Provided: Yes Do you have a plan to hurt others: No Plan Physical Exam ED Vital Signs: Vital Signs - 24 hr 11/10/24 12:49 11/10/24 13:54 11/10/24 13:54 Temperature 98 F Pulse Rate 116 H 95 99 Respiratory Rate 18 Blood Pressure 145/65 H 120/65 106/67 Pulse Oximetry 96 Oxygen Delivery Method Room Air 11/10/24 13:55 11/10/24 13:55 11/10/24 15:47 Temperature 97.6 F Pulse Rate 99 102 H 69 Respiratory Rate 19 18 Blood Pressure 120/65 114/70 132/67 Pulse Oximetry 95 97 Oxygen Delivery Method Room Air Room Air 11/10/24 16:46 Temperature Pulse Rate 62 Respiratory Rate 18 Blood Pressure 124/68 Pulse Oximetry 96 Oxygen Delivery Method Room Air BMI result Body Mass Index 24.4 Appearance: Alert. Oriented X3. No acute distress. Eyes: Pupils equal, round and reactive to light. ENT: Pharynx normal. no nystagmus Neck: Normal inspection. Neck supple. CVS: Normal heart rate and rhythm. Pulses normal. Respiratory: No respiratory distress. Breath sounds normal. Abdomen: Soft and nontender. Skin: Skin warm and dry. Normal skin color. Normal skin turgor. Extremities: No lower extremity edema. Neuro: Oriented X 3. No motor deficit. No sensory deficit. CN2-12 intact NIH Stroke Scale Internal: Initial- Upon Arrival Level of Consciousness: Alert Level of Consciousness Questions: Answers both questions correctly Level of Consciousness Commands: Performs both tasks correctly Best Gaze: Normal Visual: No visual loss Facial Palsy: Normal Motor Arm (Right): No drift Motor Arm (Left): No drift Motor Leg (Right): No drift Motor Leg (Left): No drift Limb Ataxia: Absent Sensory: Normal Best Language: No aphasia Dysarthia: Normal Extinction and Inattention: No abnormality Score: 0 Course Course Course Narrative: This is a Rapid Medical Examination (RME) performed by Med Zazueta PA-C in triage. Full HPI, ROS, assessment and treatment plan per primary provider in the Main ED. Hx: 64 yo M hx CVA 05/2024 on plavix here for eval of acute onset dizziness which began while lying down looking up at his TV last night around 2200. described as room spinning worse with standing/ moving head. no hx vertigo. states prev CVA felt different - has residual L sided weakness. PE/vitals: normal finger to nose - ambulates w/ scooter. NIH 0. Plan: labs, ekg, ortho vitals, CT head Reevaluation(s) Reevaluation #1: signed out to Darrius SCHMIDT plan to dc if feeling better after IVF Reevaluation #2: Patient feels better. Patient discharged. Patient informed to follow-up Time: 18:02 Medications Administered Discontinued Medications Generic Name Dose Route Start Last Admin Trade Name Tamiko PRN Reason Stop Dose Admin Lactated Ringer's 1,000 mls @ 999 mls/hr 11/10/24 13:36 11/10/24 15:34 Lr IV 11/10/24 14:36 Infused .Q1H1M ONE Infusion Lactated Ringer's 1,000 mls @ 999 mls/hr 11/10/24 15:48 11/10/24 16:35 Lr IV 11/10/24 16:48 999 mls/hr .Q1H1M ONE Administration Iohexol 100 ml 11/10/24 14:45 11/10/24 14:46 Iohexol 350 Mg/Ml 100 Ml Infus..Btl IV 11/10/24 14:46 70 ml ONCE ONE Administration Meclizine HCl 25 mg 11/10/24 13:36 11/10/24 14:02 Meclizine Hcl 25 Mg Tablet PO 11/10/24 13:37 25 mg ONCE ONE Administration Medical Decision Making Medical Decision Making [facility] Narrative: 64 yo male with PMH of BPH, HTN, anxiety here with c/o dizziness worse with looking up on exam he has no neuro deficits on arrival he has baseline LL ext weakness though it is intact on exam. at this time will obtain labs, CTA for dissection. I will hydrate and give meclizine as well. Differential Diagnosis Differential Diagnoses: The differential diagnosis associated with the presentation includes vertigo, lyte abnormality, less likely posterior stroke, dissection Admission/Observation Consideration of admission/observation: Escalation of care including admission/observation considered feels much better after IVF and meclizine states he only has minimal dizziness when sitting up but feels better Lab Data MDM Lab Attestation statement: I reviewed the patient's lab results. 11/10/24 13:58 11/10/24 13:58 Labs: Lab Results 11/10/24 Range/Units 13:58 WBC 10.0 (4.8-10.8) X10*3/uL RBC 4.98 (4.60-5.80) X10*6/uL Hgb 15.0 (14.0-18.0) g/dl Hct 42.7 (42.0-52.0) % MCV 85.7 (80.0-98.0) fL MCH 30.1 (27.0-33.0) pg MCHC 35.1 (31.0-36.0) g/dl RDW 13.1 (11.0-16.0) % Plt Count 254 (160-400) X10*3/uL MPV 9.7 (9.4-12.4) fL Immature Gran % (Auto) 0.3 (0.0-0.4) % Neut % (Auto) 64.9 (45-73) % Lymph % (Auto) 25.3 (20-40) % [place] % (Auto) 7.8 (2-11) % Eos % (Auto) 0.9 (0-4) % Baso % (Auto) 0.8 (0-2) % Lymph # (Auto) 2.5 (1.2-4.9) X10*3/uL [place] # (Auto) 0.8 (0.1-1.2) X10*3/uL Eos # (Auto) 0.1 (0.0-0.4) X10*3/uL Baso # (Auto) 0.1 (0.0-0.2) X10*3/uL Abs Immat Gran (auto) 0.03 (0.00-0.03) X10*3/uL Absolute Neuts (auto) 6.5 (2.0-8.3) x10*3/uL Absolute Nucleated RBC 0.000 (0.0-0.012) X10*3/uL Nucleated RBC % (auto) 0.0 (0.0-0.2) /100WBC Sodium 139 (135-145) mmol/L Potassium 4.1 (3.3-5.1) mmol/L Chloride 104 (96-108) mmol/L Carbon Dioxide 25 (22-29) mmol/L Anion Gap 14 (12-20) BUN 14 (9-16) mg/dL Creatinine 1.11 (0.5-1.4) mg/dL Estim Creat Clear Calc 81.4 Estimated GFR > 60 Random Glucose 128 H (60-115) mg/dL Calcium 9.4 (8.4-10.2) mg/dL Magnesium 2.0 (1.6-2.6) mg/dL Total Bilirubin 0.4 (0.0-1.0) mg/dL AST 21 (5-37) U/L ALT 23 (0-40) U/L Alkaline Phosphatase 82 (39-117) U/L Troponin I High Sens < 2.7 (<3.5-35.0) ng/L Total Protein 7.2 (6.5-8.0) g/dL Albumin 4.4 (3.5-5.0) g/dL Ethyl Alcohol < 10 mg/dL Independent Interpretation I performed an independent interpretation of an: EKG and CT Scan (no ICH, no dissection) Interpretation: Rate: 79 Rhythm: NSR [place]uther[place]: normal Normal P waves. Normal LUCY. Normal QRS complex. ST T wave : no MYLENE, inverted t waves V3-V6 qTC: 387 prior studies: no change hx of same May 2022 The study has been interpreted contemporaneously by me. . Radiology Impression Discussion of test interpretation with radiology: I have reviewed the radiologist's reading. External Record Review External record reviewed: Outpatient record Prescription Management I considered prescription management with: Other Discharge Plan Discharge Clinical Impression: Dizziness Instructions: Dizziness (ED) Additional Instructions: labs reasuring, EKG reassuring CT scans of head and neck no new stroke and blood vessels are patent rest and stay hydrated return for any worsening symptoms or concerns. take medications as needed for dizziness. Prescriptions: New meclizine 25 mg tablet 25 mg PO TID PRN (Reason: dizziness) Qty: 30 0RF No Action tramadol 50 mg tablet 50 mg PO TID PRN (Reason: severe pain (scale score 7-10)) Qty: 12 0RF methocarbamol 500 mg tablet 500 mg PO TID PRN (Reason: muscle spasm) Qty: 15 0RF duloxetine [Cymbalta] 60 mg capsule,delayed release(DR/EC) 60 mg PO DAILY Qty: 30 0RF Print Language: Thai
--- NOTE | 2024-11-10 12:57 | ECG_ITS ---
Test Reason : DIZZINESS Blood Pressure : */* mmHG Vent. Rate : 79 BPM Atrial Rate : 79 BPM P-R Int : 198 ms QRS Dur : 68 ms QT Int : 338 ms P-R-T Axes : 76 77 67 degrees QTcB Int : 387 ms Normal sinus rhythm Septal infarct (cited on or before 19-May-2022) Abnormal ECG When compared with ECG of 19-May-2022 19:19, IL interval has decreased Referred By: Hannah Zazueta Electronically Signed By: Christian Thomas
[2024-11-10 14:02] LABS: MANUAL DIFF FLAG NO
[2024-11-10] MEDS: Lactated Ringers 1,000 ML 999 ML IV ×2 (14:03→16:35)
[2024-11-10 14:08] LABS: Hematocrit 42.7 % (42.0-52.0); Hemoglobin 15.0 g/dl (14.0-18.0); Imm Gran Abs Auto 0.03 X10*3/uL (0.00-0.03); Imm Gran Pct Auto 0.3 % (0.0-0.4); Lymphocytes Absolute Auto 2.5 X10*3/uL (1.2-4.9); Mean Corpuscular HGB Conc 35.1 g/dl (31.0-36.0); Mean Corpuscular Hemoglobin 30.1 pg (27.0-33.0); Mean Corpuscular Volume 85.7 fL (80.0-98.0); NRBC Abs Auto 0.000 X10*3/uL (0.0-0.012); NRBC Pct Auto 0.0 /100WBC (0.0-0.2); Platelet Count 254 X10*3/uL (160-400); Red Blood Count 4.98 X10*6/uL (4.60-5.80); White Blood Count 10.0 X10*3/uL (4.8-10.8)
[2024-11-10 14:22] LABS: Alanine Aminotransferase 23 U/L (0-40); Albumin Level 4.4 g/dL (3.5-5.0); Alkaline Phosphatase 82 U/L (39-117); Anion Gap 14 (12-20); Aspartate Amino Transferase 21 U/L (5-37); Blood Urea Nitrogen 14 mg/dL (9-16); Calcium 9.4 mg/dL (8.4-10.2); Carbon Dioxide 25 mmol/L (22-29); Chloride 104 mmol/L (96-108); Creatinine Clr Calc Pharmacy 81.4; Estimated Glomerular Filt Rate > 60; Magnesium 2.0 mg/dL (1.6-2.6); Potassium 4.1 mmol/L (3.3-5.1); Sodium 139 mmol/L (135-145); Total Protein 7.2 g/dL (6.5-8.0)
[2024-11-10 14:31] LABS: Troponin-I High Sensitivity < 2.7 ng/L (<3.5-35.0)
[2024-11-10] MEDS: iohexoL 350 MG/ML 100 ML INFUS..BTL IV (14:46)
--- NOTE | 2024-11-10 16:39 | PC.NURSE ---
patient reports improvement after medications, second liter of LR infusing, call butler within reach
--- OUTSIDE RECORDS SUMMARY | 2024-11-10 17:22 | XMS_ITS | Clinical Summary ---
Author Organization [facility] Address [address] [place] [address] Phone Care Team Providers Care Home Office Claims Examiner Name Role Phone Memo Keita MD Primary Care Provider [phone] Social History Tobacco Use Types Packs/Day Years Used Date Smoking Tobacco: Never Assessed Sex and Gender Information Value Date Recorded Sex Assigned at Not on file Legal Sex Male 10:27 AM EST Gender Identity Not on file Sexual Orientation Not on file Plan of Treatment Health Maintenance Due Date Last Done Comments Diabetes: Annual Foot Exam 1971 Diabetes: Annual Retina Eye Exam 1971 Zoster Vaccines (1 of 2) 2011 Pneumococcal Vaccine: 50+ Years (2 of 2 - PCV) 02/02/2017 02/03/2016 Depression Screening 02/19/2024 Cholesterol Screening (Lipid Panel) 06/17/2024 Colorectal Cancer Screening: Colonoscopy 06/17/2024 Diabetes: Annual Urine Albumin-Creatinine Ratio (uACR) 06/17/2024 Diabetes: Blood Sugar Control Test (HGBA1C) 06/17/2024 HIV Screening 06/17/2024 Hepatitis C Screening 06/17/2024 Social Influencers of Health Screening 06/17/2024 COVID-19 Vaccine (2 - season) 2024 08/15/2020 Influenza Vaccine (#1) 2024 , 12/07/2019, 04/24/2019, Additional history exists Diabetes: Annual GFR (Glomerular Filtration Rate) 06/29/2025 06/29/2024, 06/22/2024, 06/14/2024 DTaP,Tdap,and Td Vaccines (3 - Td or Tdap) 10/19/2026 10/19/2016, 02/19/2016 RSV Immunization Adult Patients (1 - 1-dose 75+ series) 02/18/2036 HIB Vaccines Aged Out No longer eligi ble based on patient's age to complete this topic HPV Vaccines Aged Out No longer eligi ble based on patient's age to complete this topic Hepatitis A Vaccines Aged Out No long er eligible based on patient's age to complete this topic Hepatitis B Vaccines Aged Out No long er eligible based on patient's age to complete this topic IPV Vaccines Aged Out No longer eligi ble based on patient's age to complete this topic MMR Vaccines Aged Out No longer eligi ble based on patient's age to complete this topic Meningococcal ACWY Vaccine Aged Out N o longer eligible based on patient's age to complete this topic Meningococcal B Vaccine Aged Out No l onger eligible based on patient's age to complete this topic RSV Immunization Patients Under 20 months Aged Out No longer eligible based on patient's age to complete this topic Varicella Vaccines Aged Out No longer eligible based on patient's age to complete this topic Procedures Procedure Name Priority Date/Time Associated Diagnosis Comments COMPREHENSIVE METABOLIC PANEL Routine 06/29/2024 6:00 AM EDT Encounter for other general examination from Last 3 Months or Most Recently Relevant to Health Maintenance Results * (ABNORMAL) Comprehensive metabolic panel (06/29/2024 6:00 AM EDT) Sodium 137 133 - 145 mmol/L LAB CHEMISTRY METHOD 06/29/2024 1:25 PM [facility] Potassium 4.1 3.5 - 5.5 mmol/L LAB CHEMISTRY METHOD 06/29/2024 1:25 PM [facility] Chloride 102 96 - 110 mmol/L LAB CHEMISTRY METHOD 06/29/2024 1:25 PM [facility] CO2 25 21 - 32 mmol/L LAB CHEMISTRY METHOD 06/29/2024 1:25 PM [facility] Anion Gap 10 3 - 11 LAB CHEMISTRY METHOD 06/29/2024 1:25 PM [facility] Glucose 111(H) 70 - 100 mg/dL LAB CHEMISTRY METHOD 06/29/2024 1:25 PM [facility] BUN 11 5 - 25 mg/dL LAB CHEMISTRY METHOD 06/29/2024 1:25 PM [facility] Creatinine 0.98 0.70 - 1.30 mg/dL LAB CHEMISTRY METHOD 06/29/2024 1:25 PM [facility] eGFR 87 >=60 mL/min/1. 73m2 LAB CHEMISTRY METHOD 06/29/2024 1:25 PM [facility] Comment:Calculation based on the Chronic Kidney Disease Epidemiology Collaboration (CKD-EPI) equation refit without adjustment for race. BUN/Creatinine Ratio 11.2 LAB CHEMISTRY METHOD 06/29/2024 1:25 PM [facility] Calcium 8.8 8.5 - 10.5 mg/dL LAB CHEMISTRY METHOD 06/29/2024 1:25 PM [facility] AST (SGOT) 37 10 - 42 unit/L LAB CHEMISTRY METHOD 06/29/2024 1:25 PM [facility] ALT (SGPT) 67(H) 10 - 60 unit/L LAB CHEMISTRY METHOD 06/29/2024 1:25 PM [facility] Alkaline Phosphatase 103 42 - 121 unit/L LAB CHEMISTRY METHOD 06/29/2024 1:25 PM [facility] Total Protein 6.1 6.0 - 8.0 g/dL LAB CHEMISTRY METHOD 06/29/2024 1:25 PM [facility] Albumin 3.1(L) 3.2 - 5.0 g/dL LAB CHEMISTRY METHOD 06/29/2024 1:25 PM [facility] Total Bilirubin 0.4 0.0 - 1.4 mg/dL LAB CHEMISTRY METHOD 06/29/2024 1:25 PM [facility] Blood Venous blood specimen / Unknown Venipuncture / Unknown 06/29/2024 6:00 AM EDT 06/29/2024 10:12 AM EDT us Memo Keita MD LAB BLOOD ORDERABLES Final Res ult [facility] [address] [place] [address], [place] [phone] from Last 3 Months or Most Recently Relevant to Health Maintenance Insurance MEDICAID - [place] Care Teams Home Office Claims Examiner Relationship Specialty Start Date End Date Memo Keita MD [address] [place] [id number] PCP - General Internal Medicine 06/14/24
--- OUTSIDE RECORDS SUMMARY | 2024-11-10 17:22 | XMS_ITS | Encounter Summary ---
Author Organization [facility] Address [address] [place] [address] Care Team Providers Care Chair Post Machine Operator Name Role Phone Memo Keita MD Primary Care Provider [phone] Encounter Details Date Type Department Care Team (Late st Contact Info) Description 06/29/2024 Lab Requisition [facility] - Main Lab [address] [place] [address] Memo Keita MD [address] [place] [id number] Encounter for other general examination Social History Tobacco Use Types Packs/Day Years Used Date Smoking Tobacco: Never Assessed Sex and Gender Information Value Date Recorded Sex Assigned at Not on file Legal Sex Male 10:27 AM EST Gender Identity Not on file Sexual Orientation Not on file documented as of this encounter Plan of Treatment Not on file documented as of this encounter Procedures Procedure Name Priority Date/Time Associated Diagnosis Comments COMPLETE BLOOD COUNT Routine 06/29/2024 6:00 AM EDT Encounter for other general examination COMPREHENSIVE METABOLIC PANEL Routine 06/29/2024 6:00 AM EDT Encounter for other general examination documented in this encounter Results * (ABNORMAL) Complete blood count (06/29/2024 6:00 AM EDT) WBC 6.2 4.8 - 10.8 [facility] LAB HEMETOLOGY METHOD 06/29/2024 12:17 PM EDT [facility] RBC 4.30(L) 4.50 - 5.50 [facility] LAB HEMETOLOGY METHOD 06/29/2024 12:17 PM EDT [facility] Hemoglobin 13.0(L) 13.5 - 17.5 g/dL LAB HEMETOLOGY METHOD 06/29/2024 12:17 PM EDT [facility] Hematocrit 39.1(L) 42.0 - 54.0 % LAB HEMETOLOGY [facility]24 [facility] MCV 91.4 79.0 - 98.0 FL LAB HEMETOLOGY METHOD 06/29/2024 12:17 PM EDT [facility] MCH 30.4 27.0 - 32.0 pcg LAB HEMETOLOGY METHOD 06/29/2024 12:17 PM T [facility] MCHC 33.2 32.0 - 37.0 g/dL LAB HEMETOLOGY METHOD 06/29/2024 12:17 PM [facility] RDW 12.3 11.0 - 15.0 % LAB HEMETOLOGY METHOD 06/29/2024 12:17 PM EDT [facility] Platelets 329 130 - 400 K/mcL LAB HEMETOLOGY METHOD 06/29/2024 12:17 PM T [facility] MPV 10.2 7.0 - 11.0 FL LAB HEMETOLOGY METHOD 06/29/2024 12:17 PM [facility] NRBC 0.0 <1.0 % LAB HEMETOLOGY METHOD 06/29/2024 12:17 PM EDT [facility] NRBC Absolute 0.00 <0.10 K/mcL LAB HEMETOLOGY METHOD 06/29/2024 12:17 PM [facility] Blood Venous blood specimen / Unknown Venipuncture / Unknown 06/29/2024 6:00 AM EDT 06/29/2024 10:12 AM EDT us Memo Keita MD LAB BLOOD ORDERABLES Final Res ult [facility] [address] [place] [address], * (ABNORMAL) Comprehensive metabolic panel (06/29/2024 6:00 AM EDT) Sodium 137 133 - 145 mmol/L LAB CHEMISTRY METHOD 06/29/2024 1:25 PM EDT [facility] Potassium 4.1 3.5 - 5.5 mmol/L LAB CHEMISTRY METHOD 06/29/2024 1:25 PM EDT [facility] Chloride 102 96 - 110 mmol/L LAB CHEMISTRY METHOD 06/29/2024 1:25 PM [facility] CO2 25 21 - 32 mmol/L LAB CHEMISTRY METHOD 06/29/2024 1:25 PM [facility] Anion Gap 10 3 - 11 LAB CHEMISTRY METHOD 06/29/2024 1:25 PM [facility] Glucose 111(H) 70 - 100 mg/dL LAB CHEMISTRY METHOD 06/29/2024 1:25 PM [facility] BUN 11 5 - 25 mg/dL LAB CHEMISTRY METHOD 06/29/2024 1:25 PM [facility] Creatinine 0.98 0.70 - 1.30 mg/dL LAB CHEMISTRY METHOD [facility]24 [facility] eGFR 87 >=60 mL/min/1. 73m2 LAB CHEMISTRY METHOD 06/29/2024 1:25 PM [facility] Comment:Calculation based on the Chronic Kidney Disease Epidemiology Collaboration (CKD-EPI) equation refit without adjustment for race. BUN/Creatinine Ratio 11.2 LAB CHEMISTRY METHOD 06/29/2024 1:25 PM [facility] Calcium 8.8 8.5 - 10.5 mg/dL LAB CHEMISTRY METHOD 06/29/2024 1:25 PM [facility] AST (SGOT) 37 10 - 42 unit/L LAB CHEMISTRY METHOD 06/29/2024 1:25 PM EDT [facility] ALT (SGPT) 67(H) 10 - 60 unit/L LAB CHEMISTRY METHOD 06/29/2024 1:25 PM EDT [facility] Alkaline Phosphatase 103 42 - 121 unit/L LAB CHEMISTRY METHOD 06/29/2024 1:25 PM EDT [facility] Total Protein 6.1 6.0 - 8.0 g/dL LAB CHEMISTRY METHOD 06/29/2024 1:25 PM EDT [facility] Albumin 3.1(L) 3.2 - 5.0 g/dL LAB CHEMISTRY METHOD 06/29/2024 1:25 PM EDT [facility] Total Bilirubin 0.4 0.0 - 1.4 mg/dL LAB CHEMISTRY METHOD 06/29/2024 1:25 PM EDT [facility] Blood Venous blood specimen / Unknown Venipuncture / Unknown 06/29/2024 6:00 AM EDT 06/29/2024 10:12 AM EDT us Memo Keita MD LAB BLOOD ORDERABLES Final Res ult [facility] [address] [place] [address], [place] [phone] documented in this encounter Visit Diagnoses Diagnosis Encounter for other general examination documented in this encounter Care Teams Chair Post Machine Operator Relationship Specialty Start Date End Date Memo Keita MD [address] [place] [id number] PCP - General Internal Medicine 06/14/24 documented as of this encounter
--- OUTSIDE RECORDS SUMMARY | 2024-11-10 17:22 | XMS_ITS | Encounter Summary ---
Author Organization [facility] Address [address] [place] [address] Care Team Providers Care It Technician Name Role Phone Memo Keita MD Primary Care Provider [phone] Encounter Details Date Type Department Care Team (Late st Contact Info) Description 06/17/2024 Lab Requisition [facility] - Main Lab [address] [facility] [place] [address] Memo Keita MD [address] [place] [address] Encounter for other general examination Social History [...] Procedure Name Priority Date/Time Associated Diagnosis Comments D-DIMER Routine 06/17/2024 5:15 AM EDT Encounter for other general examination documented in this encounter Results * D-Dimer (06/17/2024 5:15 AM EDT) D-Dimer, Quant (D-DU) <150 <=230 ng/mL [facility]U LAB COAGULATION METHOD 06/17/2024 10:36 AM EDT [facility] Blood Venous blood specimen / Unknown Venipuncture / Unknown 06/17/2024 5:15 AM EDT 06/17/2024 8:37 AM EDT Narrative [facility] - 06/17/2024 10:36 AM EDT D-Dimer <230 ng/mL (D-Dimer units) is the threshold for exclusion of DVT/PE. D-Dimer may be elevated in: Critically ill, severely infected, trauma patients, DIC, acute CVA, acute MO, unstable angina, AF, old age, , and smoking. D-Dimer may be decreased with: Initiation of heparin therapy and oral anticoagulants. us Memo Keita MD LAB BLOOD ORDERABLES Final Res ult [facility] [address] [place] [address], documented in this encounter Visit Diagnoses Diagnosis Encounter for other general examination documented in this encounter Care Teams It Technician Relationship Specialty Start Date End Date Memo Keita MD [address] [place] [address] PCP - General Internal Medicine 06/14/24 documented as of this encounter
--- OUTSIDE RECORDS SUMMARY | 2024-11-10 17:22 | XMS_ITS | Encounter Summary ---
Author Organization [facility] Address [address] [place] [address] Care Team Providers Care Industrial [address] Magistrate Name Role Phone Memo Keita MD Primary Care Provider [phone] Encounter Details Date Type Department Care Team (Late st Contact Info) Description 06/14/2024 Lab Requisition [facility] - Main Lab [address] [facility] [place] [address] Memo Keita MD [address] [place] [id number] Encounter for other general examination Social History [...] Procedure Name Priority Date/Time Associated Diagnosis Comments CBC WITH AUTO DIFFERENTIAL Routine 06/14/2024 5:59 AM EDT Encounter for other general examination CBC AND DIFFERENTIAL Routine 06/14/2024 5:59 AM EDT Encounter for other general examination MAGNESIUM Routine 06/14/2024 5:59 AM EDT Encounter for other general examination COMPREHENSIVE METABOLIC PANEL Routine 06/14/2024 5:59 AM EDT Encounter for other general examination documented in this encounter Results * (ABNORMAL) CBC auto differential (06/14/2024 5:59 AM EDT) WBC 10.5 4.8 - 10.8 K/[facility] LAB HEMETOLOGY METHOD 06/14/2024 10:25 AM EDT [facility] RBC 5.30 4.50 - 5.50 M/mcL LAB HEMETOLOGY METHOD 06/14/2024 10:[address] [facility] Hemoglobin 16.2 13.5 - 17.5 g/dL LAB HEMETOLOGY METHOD 06/14/2024 10:[address] [facility] Hematocrit 46.6 42.0 - 54.0 % LAB HEMETOLOGY METHOD 06/14/2024 10:[address] [facility] MCV 88.3 79.0 - 98.0 FL LAB HEMETOLOGY METHOD 06/14/2024 10:[address] [facility] MCH 30.7 27.0 - 32.0 pcg LAB HEMETOLOGY METHOD 06/14/2024 10:[address] [facility] MCHC 34.8 32.0 - 37.0 g/dL LAB HEMETOLOGY METHOD 06/14/2024 10:[address] [facility] RDW 12.9 11.0 - 15.0 % LAB HEMETOLOGY METHOD 06/14/2024 10:[address] [facility] Platelets 267 130 - 400 K/mcL LAB HEMETOLOGY METHOD 06/14/2024 10:[address] [facility] MPV 10.5 7.0 - 11.0 FL LAB HEMETOLOGY METHOD 06/14/2024 10:[address] [facility] NRBC 0.0 <1.0 % LAB HEMETOLOGY METHOD 06/14/2024 10:[address] [facility] NRBC Absolute 0.00 <0.10 K/mcL LAB HEMETOLOGY METHOD 06/14/2024 10:[address] [facility] Neutrophils Relative 57.3 % LAB HEMETOLOGY METHOD 06/14/2024 10:[address] [facility] Lymphocytes Relative 29.7 % LAB HEMETOLOGY METHOD 06/14/2024 10:25 AM EDT [facility] Monocytes Relative 9.9 % LAB HEMETOLOGY METHOD 06/14/2024 10:25 AM T [facility] Eosinophils Relative 1.8 % LAB HEMETOLOGY METHOD 06/14/2024 10:25 AM EDT [facility] Basophils Relative 1.0 % LAB HEMETOLOGY METHOD 06/14/2024 10:[address] [facility] Immature Granulocytes Relative 0.3 % LAB HEMETOLOGY METHOD 06/14/2024 10:[address] [facility] Neutrophils Absolute 6.03 1.50 - 7.00 K/mcL LAB HEMETOLOGY METHOD 06/14/2024 10:[address] [facility] Lymphocytes Absolute 3.12 1.00 - 5.00 K/mcL LAB HEMETOLOGY METHOD 06/14/2024 10:[address] [facility] Monocytes Absolute 1.04(H) 0.20 - 1.00 K/mcL LAB HEMETOLOGY METHOD 06/14/2024 10:[address] [facility] Eosinophils Absolute 0.19 0.00 - 0.50 K/mcL LAB HEMETOLOGY METHOD 06/14/2024 10:25 AM T [facility] Basophils Absolute 0.11 0.00 - 0.20 K/mcL LAB HEMETOLOGY METHOD 06/14/2024 10:[address] [facility] Immature Granulocytes Absolute 0.03 0.00 - 0.03 K/mcL LAB HEMETOLOGY METHOD 06/14/2024 10:[address] [facility] Blood Venous blood specimen / Unknown Venipuncture / Unknown 06/14/2024 5:59 AM EDT 06/14/2024 9:17 AM EDT us Memo Keita MD LAB BLOOD ORDERABLES Final Res ult [facility] [address] [place] [address], [place] [phone] * Magnesium (06/14/2024 5:59 AM EDT) Magnesium 2.2 1.9 - 2.6 mg/dL LAB CHEMISTRY METHOD 06/14/2024 10:37 AM EDT [facility] Blood Venous blood specimen / Unknown Venipuncture / Unknown 06/14/2024 5:59 AM EDT 06/14/2024 9:17 AM EDT us Memo Keita MD LAB BLOOD ORDERABLES Final Res ult Performing Organization Address City/[facility]/ZIP Co de Phone Number [facility] [address] [place] [address], [place] [phone] * (ABNORMAL) Comprehensive metabolic panel (06/14/2024 5:59 AM EDT) Pathologist [facility] Sodium 136 133 - 145 mmol/L LAB CHEMISTRY METHOD 06/14/2024 10:[address] [facility] Potassium 4.0 3.5 - 5.5 mmol/L LAB CHEMISTRY METHOD 06/14/2024 10:[address] [facility] Chloride 102 96 - 110 mmol/L LAB CHEMISTRY METHOD 06/14/2024 10:[address] [facility] CO2 24 21 - 32 mmol/L LAB CHEMISTRY METHOD 06/14/2024 10:[address] [facility] Anion Gap 10 3 - 11 LAB CHEMISTRY METHOD 06/14/2024 10:[address] [facility] Glucose 146(H) 70 - 100 mg/dL LAB CHEMISTRY METHOD 06/14/2024 10:[address] [facility] BUN 21 5 - 25 mg/dL LAB CHEMISTRY METHOD 06/14/2024 10:[address] [facility] Creatinine 0.90 0.70 - 1.30 mg/dL LAB CHEMISTRY METHOD 06/14/2024 10:[address] [facility] eGFR 96 >=60 mL/min/1. 73m2 LAB CHEMISTRY METHOD 06/14/2024 10:[address] [facility] Comment:Calculation based on the Chronic Kidney Disease Epidemiology Collaboration (CKD-EPI) equation refit without adjustment for race. BUN/Creatinine Ratio 23.3 LAB CHEMISTRY METHOD 06/14/2024 10:[address] [facility] Calcium 9.1 8.5 - 10.5 mg/dL LAB CHEMISTRY METHOD 06/14/2024 10:[address] [facility] AST (SGOT) 34 10 - 42 unit/L LAB CHEMISTRY METHOD 06/14/2024 10:[address] [facility] ALT (SGPT) 48 10 - 60 unit/L LAB CHEMISTRY METHOD 06/14/2024 10:[address] [facility] Alkaline Phosphatase 103 42 - 121 unit/L LAB CHEMISTRY METHOD 06/14/2024 10:[address] [facility] Total Protein 7.4 6.0 - 8.0 g/dL LAB CHEMISTRY METHOD 06/14/2024 10:[address] [facility] Albumin 3.7 3.2 - 5.0 g/dL LAB CHEMISTRY METHOD 06/14/2024 10:[address] [facility] Total Bilirubin 0.6 0.0 - 1.4 mg/dL LAB CHEMISTRY METHOD 06/14/2024 10:[address] [facility] Blood Venous blood specimen / Unknown Venipuncture / Unknown 06/14/2024 5:59 AM EDT 06/14/2024 9:17 AM EDT Memo Keita MD LAB BLOOD ORDERABLES Final Res ult [facility] [address] [place] [address], documented in this encounter Visit Diagnoses Diagnosis Encounter for other general examination documented in this encounter Care Teams Industrial Court Magistrate Relationship Specialty Start Date End Date Memo Keita MD [address] [place] [phone] PCP - General Internal Medicine 06/14/24 documented as of this encounter
--- OUTSIDE RECORDS SUMMARY | 2024-11-10 17:22 | XMS_ITS | Encounter Summary ---
Author Organization [facility] Address [address] [place] [address] Care Team Providers Care Helpdesk Specialist Name Role Phone Memo Keita MD Primary Care Provider [phone] Encounter Details Date Type Department Care Team (Late st Contact Info) Description 06/22/2024 Lab Requisition [facility] - Main Lab [address] [place] [address] Memo Keita MD [address] [place] [phone] Encounter for other general examination Social History [...] Associated Diagnosis Comments COMPLETE BLOOD COUNT Routine 06/22/2024 5:32 AM EDT Encounter for other general examination BASIC METABOLIC PANEL Routine 06/22/2024 5:32 AM EDT Encounter for other general examination documented in this encounter Results * (ABNORMAL) Complete blood count (06/22/2024 5:32 AM EDT) WBC 8.6 4.8 - 10.8 K/[facility] LAB HEMETOLOGY METHOD 06/22/2024 1:15 PM EDT [facility] RBC 4.30(L) 4.50 - 5.50 M/[facility] LAB HEMETOLOGY METHOD 06/22/2024 1:15 PM EDT [facility] Hemoglobin 13.1(L) 13.5 - 17.5 g/dL LAB HEMETOLOGY METHOD 06/22/2024 1:15 PM EDT [facility] Hematocrit 39.0(L) 42.0 - 54.0 % LAB HEMETOLOGY METHOD 06/22/2024 1:15 PM EDT [facility] MCV 91.1 79.0 - 98.0 FL LAB HEMETOLOGY METHOD 06/22/2024 1:15 PM EDT [facility] MCH 30.6 27.0 - 32.0 pcg LAB HEMETOLOGY METHOD 06/22/2024 1:15 PM EDT [facility] MCHC 33.6 32.0 - 37.0 g/dL LAB HEMETOLOGY METHOD 06/22/2024 1:15 PM EDT [facility] RDW 12.6 11.0 - 15.0 % LAB HEMETOLOGY METHOD 06/22/2024 1:15 PM EDT [facility] Platelets 262 130 - 400 K/mcL LAB HEMETOLOGY METHOD 06/22/2024 1:15 PM EDT [facility] MPV 10.7 7.0 - 11.0 FL LAB HEMETOLOGY METHOD 06/22/2024 1:15 PM EDT [facility] NRBC 0.0 <1.0 % LAB HEMETOLOGY METHOD 06/22/2024 1:15 PM EDT [facility] NRBC Absolute 0.00 <0.10 K/mcL LAB HEMETOLOGY METHOD 06/22/2024 1:15 PM EDT [facility] Blood Venous blood specimen / Unknown Venipuncture / Unknown 06/22/2024 5:32 AM EDT 06/22/2024 11:08 AM EDT us Memo Keita MD LAB BLOOD ORDERABLES Final Res ult [facility] [address] [place] [address], * (ABNORMAL) Basic metabolic panel (06/22/2024 5:32 AM EDT) Sodium 134 133 - 145 mmol/L LAB CHEMISTRY METHOD 06/22/2024 1:05 PM [facility] Potassium 4.2 3.5 - 5.5 mmol/L LAB CHEMISTRY METHOD 06/22/2024 1:05 PM [facility] Chloride 100 96 - 110 mmol/L LAB CHEMISTRY METHOD 06/22/2024 1:05 PM [facility] CO2 26 21 - 32 mmol/L LAB CHEMISTRY METHOD 06/22/2024 1:05 PM [facility] Anion Gap 8 3 - 11 LAB CHEMISTRY METHOD 06/22/2024 1:05 PM [facility] Glucose 121(H) 70 - 100 mg/dL LAB CHEMISTRY METHOD 06/22/2024 1:05 PM [facility] BUN 16 5 - 25 mg/dL LAB CHEMISTRY METHOD 06/22/2024 1:05 PM [facility] Creatinine 0.85 0.70 - 1.30 mg/dL LAB CHEMISTRY METHOD 06/22/2024 1:05 PM [facility] LAB eGFR 98 >=60 mL/min/1. 73m2 LAB CHEMISTRY METHOD 06/22/2024 1:05 PM [facility] Comment:Calculation based on the Chronic Kidney Disease Epidemiology Collaboration (CKD-EPI) equation refit without adjustment for race. BUN/Creatinine Ratio 18.8 LAB CHEMISTRY METHOD 06/22/2024 1:05 PM [facility] Calcium 9.1 8.5 - 10.5 mg/dL LAB CHEMISTRY METHOD 06/22/2024 1:05 PM [facility] Blood Venous blood specimen / Unknown Venipuncture / Unknown 06/22/2024 5:32 AM EDT 06/22/2024 11:08 AM EDT us Memo Keita MD LAB BLOOD ORDERABLES Final Res ult [facility] ([email or web address] [address] [place] [address], documented in this encounter Visit Diagnoses Diagnosis Encounter for other general examination documented in this encounter Care Teams Helpdesk Specialist Relationship Specialty Start Date End Date Memo Keita MD [address] [place] [phone] PCP - General Internal Medicine 06/14/24 documented as of this encounter
== END 2024-11-10 18:53 | disposition home or self-care (01) ==
PROVIDERS: Physician Assistant Medical; Emergency Provider Emergency Medicine; PCP Internal Medicine
DX: R42 Dizziness and giddiness (principal); I10 Essential (primary) hypertension; R11.2 Nausea with vomiting, unspecified; R94.31 Abnormal electrocardiogram [ECG] [EKG]; Z86.73 Personal history of transient ischemic attack (TIA), and cerebral infarction without residual deficits; Z51.81 Encounter for therapeutic drug level monitoring; Z79.899 Other long term (current) drug therapy
CPT/HCPCS: 36415; 70450; 70496; 70498; 80053; 80307; 83735; 84484; 85025; 93005; 96360; 96361; 99285; J7120; Q9967

== ENCOUNTER → 2024-11-10 12:57 | Outpatient (BNV) | payer OTHER, SELFPAY | PROVIDERS: Emergency Provider Emergency Medicine; PCP Internal Medicine; Visit Provider Internal Medicine Cardiovascular Disease | DX: I25.2 Old myocardial infarction (principal) | CPT/HCPCS: 93010 ==

== ENCOUNTER → 2024-11-10 12:57 | Outpatient (BNV) | payer OTHER, SELFPAY | PROVIDERS: Emergency Provider Emergency Medicine; PCP Internal Medicine; Visit Provider Radiology Diagnostic Radiology | DX: M54.2 Cervicalgia (principal); R42 Dizziness and giddiness | CPT/HCPCS: 70450; 70496; 70498 ==